=== PATIENT | male | born 1940 | race Caucasian/White ===

== ENCOUNTER 2017-11-27 00:22 | Emergency (ER) | payer MEDICARE, OTHER ==
[~2017-11-27] VITALS: Ht 182.9 cm; Wt 65.8 kg
[2017-11-27] MEDS ORDERED: KETOROLAC 60 MG/2 ML VIAL IM ONE (01:00)
--- NOTE | 2017-11-27 01:03 | ED Hip Pain/Injury ---
General Stated Complaint: LEFT HIP PAIN Source: patient History of Present Illness Date Seen by Provider: Nov 27, 2017 Time Seen by Provider: 00:49 Initial Comments PT ARRIVES VIA POV WITH SON, FROM HOME IN [place] C/O LEFT HIP PAIN FOR A COUPLE OF DAYS--POINTS TO LEFT SI JOINT AREA SITE OF PAIN NO KNOWN INJURY OR UNUSUAL ACTIVITY STATES HE CAN'T SIT OR LAY DOWN DUE TO PAIN NO HISTORY OF SIMILAR HAS HAD CONSTIPATION SINCE YESTERDAY--HAS TAKEN LAXATIVES YESTERDAY AND TODAY-- HAS HAD A FEW SMALL, HARD BM'S NO PROBLEMS URINATING OCCASIONAL SLIGHT NUMBNESS DOWN LEFT LEG TOOK 1 ADVIL AT 1700, NO RELIEF. Other PCP: FT. TASNEEM PELAYO Allergies and Home Medications Allergies Coded Allergies: No Known Drug Allergies (Unverified , 11/27/17) Home Medications Cyclobenzaprine HCl 10 Mg Tablet, 10 MG PO Q8H Prescribed by: MIGUEL LYNN on 11/27/17231 Naproxen 500 Mg Tablet, 500 MG PO BID Prescribed by: MIGUEL LYNN on 11/27/17231 Tramadol HCl 50 Mg Tablet, 50 MG PO Q4H Prescribed by: MIGUEL LYNN on 11/27/17231 Patient Home Medication List Home Medication List Reviewed: Yes Review of Systems Constitutional: no symptoms reported Respiratory: no symptoms reported Cardiovascular: no symptoms reported Gastrointestinal: No abdominal pain; constipation; No nausea, No vomiting Genitourinary: no symptoms reported Musculoskeletal: see HPI Skin: no symptoms reported; No rash Psychiatric/Neurological: See HPI, Numbness, Paresthesia Past Lzxbifj-Bmopdr-Crncbg Hx Patient Social History Alcohol Use: Regular Use (DRINKS WHISKEY DAILY) Recreational Drug Use: No Smoking Status: Current Everyday Smoker (1 PPD) Type Used: Cigarettes (1 PPD) Recent Foreign Travel: No Contact w/Someone Who Travel: No Past Medical History Surgeries: Yes (EGD/ESOPHAGEAL DILATION) Respiratory: No Cardiac: No Neurological: No Genitourinary: No Gastrointestinal: Yes (ESOPHAGEAL STRICTURE) Gastroesophageal Reflux Musculoskeletal: No Endocrine: No HEENT: No Cancer: No Psychosocial: No Integumentary: No Blood Disorders: No Physical Exam Vital Signs Capillary Refill : Height, Weight, BMI Height: '" Weight: lbs. oz. kg; BMI Method: General Appearance: No Apparent Distress, Thin, Other (+ ODOR OF CIGARETTES AND ALCOHOL) HEENT: PERRL/EOMI Neck: Full Range of Motion, Normal Inspection, Non Tender, Supple Cardiovascular: Regular Rate, Rhythm, No Edema, No JVD, No Murmur, Normal Peripheral Pulses Respiratory: Normal Breath Sounds, No Accessory Muscle Use, No Respiratory Distress Gastrointestinal: Normal Bowel Sounds, No Organomegaly, Non Tender, Soft Back: No CVA Tenderness, No Vertebral Tenderness, Other (TENDERNESS DIRECTLY OVER LEFT SI JOINT--PALPATION REPRODUCES PAIN, DTR'S INTACT. NEGATIVE STRAIGHT LEG RAISING. ) Extremity: Normal Capillary Refill, Normal Inspection, Normal Range of Motion, Non Tender, No Calf Tenderness, No Pedal Edema Neurologic/Psychiatric: Alert, Oriented x3, No Motor/Sensory Deficits, Normal Mood/Affect, wearing apparel folder II-XII Norm as Tested Skin: Normal Color, Warm/Dry; No Rash Progress/Results/Core Measures Results/Orders My Orders Orders - MIGUEL LYNN DO Ketorolac Injection (Toradol Injection) (11/27/17 01:00) Ct Lumbar Spine Wo (11/27/17 00:56) Pelvis With Left Hip 2-3 Views (11/27/17 00:56) Rx-Cyclobenzaprine Tablet (Rx-Flexeril T (11/27/17 02:26) Rx-Tramadol Hcl (Rx-Ultram) (11/27/17 02:26) Rx-Naproxen (Rx-Naprosyn) (11/27/17 02:26) Im/Sub-Q Injection Non-Ab Ed (11/27/17 ) Medications Given in ED Vital Signs/I&O Progress Progress Note : Progress Note SYMPTOMS IMPROVED AT DISMISSAL Diagnostic Imaging Comments CT LUMBAR SPINE--NO ACUTE PROCESS, CHRONIC CHANGES WITH SEVERE DEGENERATIVE CHANGES L5/S1 SPONDYLOLISTHESIS L5 OVER S1. 3.7 CM AAA--PER [facility] VIA FAX @ 1795 Reviewed: Reviewed by Me Departure Impression Primary Impression: Low back pain Additional Impressions: Pain of left sacroiliac joint Degenerative disc disease, lumbar Abdominal aortic aneurysm (AAA) 35 to 39 mm in diameter Disposition: 01 HOME, SELF-CARE Condition: Stable Departure-Patient Inst. Referrals: FLORENCIA LOWERY DO (PCP/Family) Primary Care Physician Patient Instructions: Abdominal Aortic Aneurysm, Low Back Pain (DC), Sacroiliac Joint Pain (DC) Add. Discharge Instructions: ALTERNATE ICE AND HEAT TO AREA AT 20 MINUTE INTERVALS NO LIFTING, BENDING OR TWISTING NO ALCOHOL WITH PRESCRIPTION MEDICATIONS DO NOT DRIVE OR OPERATE ANY MACHINERY WHILE TAKING MEDICATIONS FOLLOW UP WITH YOUR DR THIS WEEK FOR FURTHER CARE Scripts Tramadol HCl (Ultram) 50 Mg Tablet 50 MG PO Q4H, #20 TAB Prov: MIGUEL LYNN DO 11/27/17 Naproxen (Naproxen) 500 Mg Tablet 500 MG PO BID, #20 TAB Prov: MIGUEL LYNN DO 11/27/17 Cyclobenzaprine HCl (Cyclobenzaprine HCl) 10 Mg Tablet 10 MG PO Q8H, #15 TAB Prov: MIGUEL LYNN DO 11/27/17 MIGUEL LYNN DO Nov 27, 2017 01:03
[2017-11-27] MEDS ORDERED: RX-CYCLOBENZAPRINE 10 MG (FLEXERIL) TAB PPK#3 PO STA (02:26)
[2017-11-27] MEDS ORDERED: RX-TRAMADOL 50 MG (ULTRAM) TAB PPK#4 PO STA (02:26)
[2017-11-27] MEDS ORDERED: RX-NAPROXEN (NAPROSYN) 250 MG TAB PPK#4 PO STA (02:26)
[2017-11-27] MEDS ORDERED: NAPR-915 PO (02:32)
[2017-11-27] MEDS ORDERED: CYCL10TA9 PO (02:32)
[2017-11-27] MEDS ORDERED: TRAM-42 PO (02:32)
[2017-11-27 02:42] VITALS: BP 150/99
--- NOTE | 2017-11-27 07:47 | Diagnostic Imaging Report ---
INDICATION: Left hip pain TECHNIQUE: AP pelvis along with 2 views left hip 2:06 AM CORRELATION STUDY: None FINDINGS: Pelvis is intact. No acute fracture. Pectineal lines and obturator rings maintained. SI joints with mild sclerosis. Right hip with mild narrowing. Imaging of the left hip demonstrates mild joint space narrowing. Femoral head acetabular relationship otherwise maintained. Bony trabecular pattern intact. Surgical change of a prior hernia repair, left inguinal region as well as vascular calcification. IMPRESSION: Negative examination of the pelvis. Mild bilateral hip joint narrowing. Dictated by: Dictated on workstation # [id number]
--- NOTE | 2017-11-27 08:06 | Diagnostic Imaging Report ---
PROCEDURE: CT lumbar spine without contrast. TECHNIQUE: Multiple contiguous axial images were obtained through the lumbar spine without the use of intravenous contrast. Sagittal and coronal reformations were then performed. INDICATION: Left hip pain. FINDINGS: Grade 2 spondylolisthesis of L5 on S1. Alignment is otherwise anatomic. Lumbar vertebral body heights are overall maintained and demonstrate no acute-appearing compression deformity. There is however extensive areas of Schmorl's node deformities reactive endplate changes, particularly at the L5-S1 level. 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 Marked disc space narrowing L5-S1 levels with essentially absence of joint space. There is severe bilateral neural foraminal stenosis. Additional areas of degenerative change with vacuum phenomena L2-L3, L3-L4 levels. Additional disc bulges L2-L3, L3-L4 and L4-5 levels. No appreciable high-degree spinal canal stenosis. Asymmetric areas of hypertrophic facet arthropathy. Normal aortic aneurysm measuring up to 3.8 cm in size. Incidental note is made of a colonic diverticulosis. IMPRESSION: 1. Negative for acute bony abnormality at the lumbar spine. 2. 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 Associated severe disc degeneration is noted. This results in bilateral severe foraminal stenosis. 3. Additional multifocal areas of degenerative change are present. Hypertrophic facet arthropathy. 4. Abdominal aortic aneurysm measuring just under 4 cm maximum size. Colonic diverticulosis. A preliminary report was provided by [facility]. Dictated by: Dictated on workstation # [id number]
== END 2017-11-27 02:43 | disposition home or self-care (01) ==
LOC: ER 00:25
DX: M51.36 Other intervertebral disc degeneration, lumbar region (principal); M53.3 Sacrococcygeal disorders, not elsewhere classified; I71.4 Abdominal aortic aneurysm, without rupture; M25.552 Pain in left hip; K21.9 Gastro-esophageal reflux disease without esophagitis; F10.10 Alcohol abuse, uncomplicated; F17.210 Nicotine dependence, cigarettes, uncomplicated; Z87.19 Personal history of other diseases of the digestive system
CPT/HCPCS: 72131; 96372

== ENCOUNTER 2019-04-27 20:10 | Inpatient (IN) | payer MEDICARE ==
[~2019-04-27] VITALS: Ht 182 cm; Wt 70.7 kg
[~2019-04-27 20:10] MED LIST: CYCL10TA9 PO; NAPR-915 PO; TRAM-42 PO
--- NOTE | 2019-04-27 20:16 | ED Chest Pain ---
General Stated Complaint: CP Source: patient, EMS Exam Limitations: no limitations History of Present Illness Date Seen by Provider: Apr 27, 2019 Time Seen by Provider: 20:14 Initial Comments To ER per EMS from home with reports of chest pain left anterior that started 30 minutes ago while he was "taking a shit". The pain lasted for about 20 minutes before subsiding after the administration of one sublingual nitroglycerin and 4 mg of morphine by EMS in route to the hospital. He was also given aspirin full dose in route to the hospital. He does smoke about one pack of cigarettes per day. Upon arrival to ER he is completely asymptomatic. Primary care doctor self, no cardiac history. EMS reports that on their arrival systolic blood pressure was repeatedly 220-240. He states that he has no medical history and takes no medication except naproxen. Timing/Duration: resolved prior to arrival Severity/Quality: moderate Location: central Radiation: no radiation ASA po ELECTRO OPTICS ENGINEER: Yes NTG SL ELECTRO OPTICS ENGINEER: Yes Associated Symptoms: No diaphoresis, No nausea/vomiting; shortness of breath Allergies and Home Medications Allergies Coded Allergies: No Known Drug Allergies (Unverified , 11/27/17) Home Medications Cyclobenzaprine HCl 10 Mg Tablet, 10 MG PO Q8H Prescribed by: MIGUEL LYNN on 11/27/17231 Naproxen 500 Mg Tablet, 500 MG PO BID Prescribed by: MIGUEL LYNN on 11/27/17231 Tramadol HCl 50 Mg Tablet, 50 MG PO Q4H Prescribed by: MIGUEL LYNN on 11/27/17231 Patient Home Medication List Home Medication List Reviewed: Yes Review of Systems Review of Systems Constitutional: see HPI EENTM: No Symptoms Reported Respiratory: No Symptoms Reported; Denies Cough, Denies Orthopnea, Denies Shortness of Air Cardiovascular: See HPI, Chest Pain Gastrointestinal: No Symptoms Reported Genitourinary: No Symptoms Reported Musculoskeletal: no symptoms reported Skin: no symptoms reported Psychiatric/Neurological: No Symptoms Reported Endocrine: No Symptoms Reported Hematologic/Lymphatic: No Symptoms Reported Past Whlncay-Iutren-Eoqexh Hx Patient Social History Type Used: Cigarettes Recent Foreign Travel: No Contact w/Someone Who Travel: No Recent Hopitalizations: No Seasonal Allergies Seasonal Allergies: No Past Medical History Surgeries: Yes (EGD/ESOPHAGEAL DILATION) Appendectomy Respiratory: No Cardiac: No Neurological: No Genitourinary: No Gastrointestinal: Yes (ESOPHAGEAL STRICTURE) Gastroesophageal Reflux Musculoskeletal: No Endocrine: No HEENT: No Cancer: No Psychosocial: No Integumentary: No Blood Disorders: No Physical Exam Vital Signs Vital Signs - First Documented 04/27/19 20:10 Temp 36.7 Pulse 75 Resp 18 B/P (MAP) 195/112 (139) Pulse Ox 95 O2 Delivery Room Air O2 Flow Rate 2.0 Capillary Refill : Height, Weight, BMI Height: 6'0" Weight: 145lbs. oz. 65.210131qx; BMI Method:Stated General Appearance: No Apparent Distress, WD/WN, Other (alert and oriented, GCS 15) Neck: Full Range of Motion, Normal Inspection Respiratory: Normal Breath Sounds, No Accessory Muscle Use, No Respiratory Distress Cardiovascular: Regular Rate, Rhythm, Normal Peripheral Pulses Gastrointestinal: Normal Bowel Sounds, Non Tender, Soft Extremity: Normal Capillary Refill, Normal Inspection Neurologic/Psychiatric: Alert, Oriented x3 Skin: Normal Color, Warm/Dry Progress/Results/Core Measures Results/Orders Lab Results Laboratory Tests Test 04/27/19 20:16 Range/Units White Blood Count 8.2 4.3-11.0 10^3/uL Red Blood Count 6.25 H 4.35-5.85 10^6/uL Hemoglobin 19.5 H 13.3-17.7 G/DL Hematocrit 58 H 40-54 % Mean Corpuscular Volume 92 80-99 FL Mean Corpuscular Hemoglobin 31 25-34 PG Mean Corpuscular Hemoglobin Concent 34 32-36 G/DL Red Cell Distribution Width 14.8 H 10.0-14.5 % Platelet Count 234 130-400 10^3/uL Mean Platelet Volume 10.5 H 7.4-10.4 FL Neutrophils (%) (Auto) 50 42-75 % Lymphocytes (%) (Auto) 31 12-44 % Monocytes (%) (Auto) 13 H 0-12 % Eosinophils (%) (Auto) 6 0-10 % Basophils (%) (Auto) 1 0-10 % Neutrophils # (Auto) 4.1 1.8-7.8 X 10^3 Lymphocytes # (Auto) 2.5 1.0-4.0 X 10^3 Monocytes # (Auto) 1.0 0.0-1.0 X 10^3 Eosinophils # (Auto) 0.5 H 0.0-0.3 10^3/uL Basophils # (Auto) 0.1 0.0-0.1 10^3/uL Prothrombin Time 12.9 12.2-14.7 SEC INR Comment 0.9 0.8-1.4 Activated Partial Thromboplast Time 31 24-35 SEC D-Dimer 1.52 H 0.00-0.49 UG/ML Sodium Level 139 135-145 MMOL/L Potassium Level 4.2 3.6-5.0 MMOL/L Chloride Level 105 98-107 MMOL/L Carbon Dioxide Level 25 21-32 MMOL/L Anion Gap 9 5-14 MMOL/L Blood Urea Nitrogen 16 7-18 MG/DL Creatinine 1.03 0.60-1.30 MG/DL Estimat Glomerular Filtration Rate > 60 BUN/Creatinine Ratio 16 Glucose Level 98 70-105 MG/DL Calcium Level 9.2 8.5-10.1 MG/DL Corrected Calcium 9.4 8.5-10.1 MG/DL Magnesium Level 1.7 1.6-2.4 MG/DL Total Bilirubin 0.9 0.1-1.0 MG/DL Aspartate Amino Transf (AST/SGOT) 18 5-34 U/L Alanine Aminotransferase (ALT/SGPT) 15 0-55 U/L Alkaline Phosphatase 52 40-136 U/L Myoglobin 42.1 10.0-92.0 NG/ML Troponin I < 0.028 <0.028 NG/ML B-Type Natriuretic Peptide 286.1 H <100.0 PG/ML Total Protein 6.4 6.4-8.2 GM/DL Albumin 3.7 3.2-4.5 GM/DL Serum Alcohol < 10 <10 MG/DL My Orders Orders - CELESTINO KIMBLE RESIDENTIAL PROGRAM DIRECTOR Cbc With Automated Diff (04/27/19 20:13) Magnesium (04/27/19 20:13) Chest 1 View, Ap/Pa Only (04/27/19 20:13) Ekg Tracing (04/27/19 20:13) Comprehensive Metabolic Panel (04/27/19 20:13) Myoglobin Serum (04/27/19 20:13) Protime With Inr (04/27/19 20:13) Partial Thromboplastin Time (04/27/19 20:13) O2 (04/27/19 20:13) Monitor-Rhythm Ecg Trace Only (04/27/19 20:13) Lipid Panel (04/28/19 06:00) Ed Iv/Invasive Line Start (04/27/19 20:13) BNP (04/27/19 20:13) Fibrin Degradation Products (04/27/19 20:13) Troponin I (04/27/19 20:13) Metoprolol Tartrate Injection (Lopressor (04/27/19 20:45) Alcohol (04/27/19 20:35) Ct Angio Chest W (04/27/19 20:47) Clonidine Tablet (Catapres Tablet) (04/27/19 21:00) Iohexol Injection (Omnipaque 350 Mg/Ml 1 (04/27/19 21:15) Ns (Ivpb) (Sodium Chloride 0.9% Ivpb Bag (04/27/19 21:15) Hydralazine Injection (Apresoline Inject (04/27/19 22:15) Medications Given in ED Current Medications Medications Dose Ordered Sig/Gifty Route Start Time Stop Time Status Last Admin Dose Admin Clonidine HCl 0.1 mg ONCE ONCE PO 04/27/19 21:00 04/27/19 21:01 DC 04/27/19 21:05 0.1 MG Iohexol 100 ml ONCE ONCE IV 04/27/19 21:15 04/27/19 21:16 DC 04/27/19 21:21 100 ML Metoprolol Tartrate 5 mg ONCE ONCE IV 04/27/19 20:45 04/27/19 20:46 DC 04/27/19 20:39 5 MG Sodium Chloride 80 ml ONCE ONCE IV 04/27/19 21:15 04/27/19 21:16 DC 04/27/19 21:21 80 ML Vital Signs/I&O 04/27/19 04/27/19 20:10 20:10 Temp 36.7 Pulse 75 Resp 18 B/P (MAP) 195/112 (139) Pulse Ox 95 O2 Delivery Room Air Nasal Cannula O2 Flow Rate 2.0 Diagnostic Imaging Diagonstic Imaging: Xray Plain Films/CT/US/NM/MRI: chest Comments NAME: SOULEYMANE DAUGHERTY MED REC#: [id number] PT STATUS: REG ER : 1940 PHYSICIAN: CELESTINO KIMBLE APRN ADMIT DATE: 04/27/19/ER Draft Date of Exam:04/27/19 CHEST 1 VIEW, AP/PA ONLY INDICATION: Dyspnea Portable AP view of the chest is obtained. No previous study is available at this time for comparison. Heart size and pulmonary vascularity are at the upper limits of normal. There are also prominent interstitial markings throughout the lungs bilaterally. No pneumothorax or significant pleural fluid is identified. IMPRESSION: Findings are suggestive of congestive heart failure of indeterminate chronicity. If older studies are available, comparison would be useful. Otherwise, follow-up PA and lateral views of the chest would be of value. Dictated on workstation # [id number] Dict: 04/27/192025 Trans: 04/27/192028 [facility] [id number] Interpreted by: ERICA VILLAR MD Electronically signed by: Departure Communication (Admissions) Time/Spoke to Admitting Phy: 22:[address] Manjarrez, we will admit to ICU for malignant hypertension consult Dr. Gore. Spoke with Dr. Carbone, recommends Toprol-XL 100 mg by mouth now, Norvasc 10 mg by mouth now, hydralazine 50 mg by mouth every 6 hours for systolic blood pressure greater than 180. 2101-remains pain-free at this time laying flat supine in bed without shortness of breath or chest pain. He is a bit tearful and there is a multitude of family members here. 0-1 pressure still elevated at 186/110. Remains alert and oriented, heart rate 64 sinus. Remains symptom-free. Impression Primary Impression: Chest pain Qualified Codes: R07.9 - Chest pain, unspecified Additional Impression: Malignant hypertension Disposition: ADMITTED INPATIENT Condition: Stable Admissions Decision to Admit Reason: Admit from ER (General) Decision to Admit/Date: Apr 27, 2019 Time/Decision to Admit Time: 22:01 Departure-Patient Inst. Referrals: SIRISHA COLLINS MD (PCP/Family) Primary Care Physician CELESTINO KIMBLE APRN Apr 27, 2019 20:16
[2019-04-27 20:25] LABS: BASOPHILS # (AUTO) 0.1 10^3/uL (0.0-0.1); BASOPHILS % (AUTO) 1 % (0-10); EOSINOPHILS # (AUTO) 0.5 10^3/uL (0.0-0.3); EOSINOPHILS % (AUTO) 6 % (0-10); HEMATOCRIT 58 % (40-54); HEMOGLOBIN 19.5 G/DL (13.3-17.7); LYMPHOCYTES # (AUTO) 2.5 X 10^3 (1.0-4.0); LYMPHOCYTES % (AUTO) 31 % (12-44); MEAN CORPUSCULAR HEMOGLOBIN 31 PG (25-34); MEAN CORPUSCULAR HGB CONC 34 G/DL (32-36); MEAN CORPUSCULAR VOLUME 92 FL (80-99); MEAN PLATELET VOLUME 10.5 FL (7.4-10.4); MONOCYTES % (AUTO) 13 % (0-12); NEUTROPHILS # (AUTO) 4.1 X 10^3 (1.8-7.8); NEUTROPHILS % (AUTO) 50 % (42-75); PLATELET COUNT 234 10^3/uL (130-400); RED CELL DISTRIBUTION WIDTH 14.8 % (10.0-14.5); WHITE BLOOD COUNT 8.2 10^3/uL (4.3-11.0)
--- NOTE | 2019-04-27 20:30 | Diagnostic Imaging Report ---
INDICATION: Dyspnea Portable AP view of the chest is obtained. No previous study is available at this time for comparison. Heart size and pulmonary vascularity are at the upper limits of normal. There are also prominent interstitial markings throughout the lungs bilaterally. No pneumothorax or significant pleural fluid is identified. IMPRESSION: Findings are suggestive of congestive heart failure of indeterminate chronicity. If older studies are available, comparison would be useful. Otherwise, follow-up PA and lateral views of the chest would be of value. Dictated by: Dictated on workstation # [id number]
[2019-04-27 20:37] LABS: INR 0.9 (0.8-1.4); PROTHROMBIN TIME PATIENT 12.9 SEC (12.2-14.7)
[2019-04-27] MEDS ORDERED: meTOprolol 5 MG/5 ML (LOPRESSOR) VIAL IV ONE (20:45)
[2019-04-27 20:46] LABS: ALANINE AMINOTRANSFERASE 15 U/L (0-55); ALBUMIN 3.7 GM/DL (3.2-4.5); ALKALINE PHOSPHATASE 52 U/L (40-136); BILIRUBIN,TOTAL 0.9 MG/DL (0.1-1.0); BUN/CREATININE RATIO 16; CALCIUM 9.2 MG/DL (8.5-10.1); CARBON DIOXIDE 25 MMOL/L (21-32); CHLORIDE 105 MMOL/L (98-107); CREATININE SERUM 1.03 MG/DL (0.60-1.30); GFR ESTIMATED > 60; GLUCOSE 98 MG/DL (70-105); MAGNESIUM 1.7 MG/DL (1.6-2.4); POTASSIUM 4.2 MMOL/L (3.6-5.0); SODIUM 139 MMOL/L (135-145); TOTAL PROTEIN 6.4 GM/DL (6.4-8.2)
[2019-04-27] MEDS ORDERED: cloNIDine 0.1 MG (CATAPRES) TAB PO ONE (21:00)
[2019-04-27] MEDS ORDERED: NS 100 ML (IVPB) BAG IV ONE (21:15)
[2019-04-27] MEDS ORDERED: IOHEXOL 350 MG/ML 100 ML (OMNIPAQUE 350) VIAL IV ONE (21:15)
--- NOTE | 2019-04-27 21:39 | Diagnostic Imaging Report ---
PROCEDURE: CT angiography of the chest with contrast. TECHNIQUE: Multiple contiguous axial images were obtained through the chest after uneventful bolus administration of intravenous contrast. 3D reconstructed CTA MIP acquisitions were also performed. Auto Exposure Controls were utilized during the CT exam to meet ALARA standards for radiation dose reduction. INDICATION: Chest pain. FINDINGS: There is good opacification of pulmonary arteries without intraluminal filling defect identified. There is mild aortic athetotic calcification without evidence of dissection or thoracic aortic aneurysm. Upper abdominal aorta demonstrates moderate atherosclerotic plaque. There is bilateral renal calcification without evidence of obstruction. There is diffuse background centrilobular emphysema with conglomerate regions of irregular density in the apices of both lungs, likely due to scarring. Prominent interstitial markings are seen elsewhere throughout the lungs; however, no consolidation or mass is identified. There is no significant pleural or pericardial fluid. Coronary artery calcifications are noted. IMPRESSION: No CTA evidence of pulmonary embolism. There is evidence of background COPD with mildly prominent interstitial markings diffusely which could be due to superimposed edema or pneumonitis. No consolidation is seen to indicate pneumonia. Chronic infiltrate or scarring is seen within the lung apices bilaterally. These could be further evaluated with older study if possible. Otherwise, consideration should be given to short-term CT follow-up in 4-6 months. Dictated by: Dictated on workstation # [id number]
[2019-04-27] MEDS ORDERED: hydrALAZINE (APESOLINE) 20 MG/ML VIAL IV ONE (22:15)
[2019-04-27] MEDS ORDERED: LORazepam INJ 2 MG/ML (ATIVAN) VIAL IVP PRN (22:30)
[2019-04-27 23:03] VITALS: BP 185/100
[2019-04-27 23:19] VITALS: BP 200/123
[2019-04-27 23:30] VITALS: BP 217/123
[2019-04-27] MEDS ORDERED: NITROGLYCERIN 0.4 MG SL TABS BTL 25'S SL PRN (23:30)
[2019-04-27] MEDS ORDERED: hydrALAZINE (APRESOLINE) 25 MG TAB PO PRN (23:30)
[2019-04-27] MEDS ORDERED: amLODIPine 10 MG (NORVASC) TAB PO ONE (23:30)
[2019-04-27] MEDS ORDERED: meTOprolol SUCCINATE 100 MG (TOPROL XL) TAB PO ONE (23:30)
[2019-04-27] MEDS ORDERED: morphine INJ 4 MG/ML 1 ML (VIAL/SYRINGE) IV PRN (23:30)
[2019-04-27] MEDS ORDERED: HALOPERIDOL 5 MG/ML (HALDOL) AMP ONE (23:31)
[2019-04-27 23:45] VITALS: BP 176/91
[2019-04-27] MEDS ORDERED: LORazepam INJ 2 MG/ML (ATIVAN) VIAL IVP ONE (23:45)
[2019-04-27] MEDS ORDERED: LORazepam INJ 2 MG/ML (ATIVAN) VIAL IV ONE (23:45)
[2019-04-27] MEDS ORDERED: HALOPERIDOL 5 MG/ML (HALDOL) AMP IM/IV ONE (23:45)
[2019-04-27] MEDS ORDERED: HALOPERIDOL 5 MG/ML (HALDOL) AMP IV ONE (23:45)
[2019-04-28] VITALS (26 sets, daily range): BP systolic 82–172; BP diastolic 45–115
[2019-04-28] MEDS ORDERED: hydrALAZINE (APESOLINE) 20 MG/ML VIAL ONE (00:56)
[2019-04-28] MEDS ORDERED: DexMEDEtomidine 250 ML DRIP 250 ML IV ONE (00:56)
[2019-04-28] MEDS: DexMEDEtomidine 200 MCG/NS 50 ML IV SCH ×6 (01:00→23:58)
[2019-04-28 01:15] LABS: BILIRUBIN,URINE NEGATIVE (NEGATIVE); CLARITY,URINE CLEAR; COLOR,URINE YELLOW; GLUCOSE, URINE (UA) NEGATIVE (NEGATIVE); KETONES,URINE NEGATIVE (NEGATIVE); LEUKOCYTE ESTERASE ,URINE NEGATIVE (NEGATIVE); NITRITE,URINE NEGATIVE (NEGATIVE); PROTEIN,URINE NEGATIVE (NEGATIVE)
[2019-04-28 01:27] LABS: BACTERIA,URINE TRACE /HPF; SQUAMOUS EPITHELIAL CELL,UR RARE /HPF
[2019-04-28] MEDS ORDERED: hydrALAZINE (APESOLINE) 20 MG/ML VIAL IV PRN (03:30)
[2019-04-28] MEDS ORDERED: LORazepam INJ 2 MG/ML (ATIVAN) VIAL IV ONE (03:30)
[2019-04-28] MEDS ORDERED: LORazepam 1 MG (ATIVAN) TAB PO PRN (03:30)
[2019-04-28] MEDS ORDERED: LORazepam INJ 2 MG/ML (ATIVAN) VIAL IV PRN (03:30)
[2019-04-28] MEDS ORDERED: THIAMINE 100 MG/ML 2 ML (VITAMIN B-1) VIAL IV ONE (03:30)
[2019-04-28 03:52] LABS: BASOPHILS % (AUTO) 0 % (0-10); EOSINOPHILS # (AUTO) 0.3 10^3/uL (0.0-0.3); EOSINOPHILS % (AUTO) 2 % (0-10); HEMATOCRIT 58 % (40-54); HEMOGLOBIN 19.8 G/DL (13.3-17.7); LYMPHOCYTES # (AUTO) 1.7 X 10^3 (1.0-4.0); LYMPHOCYTES % (AUTO) 14 % (12-44); MEAN CORPUSCULAR HEMOGLOBIN 31 PG (25-34); MEAN CORPUSCULAR HGB CONC 34 G/DL (32-36); MEAN CORPUSCULAR VOLUME 91 FL (80-99); MEAN PLATELET VOLUME 10.7 FL (7.4-10.4); MONOCYTES # (AUTO) 1.2 X 10^3 (0.0-1.0); MONOCYTES % (AUTO) 10 % (0-12); NEUTROPHILS # (AUTO) 9.3 X 10^3 (1.8-7.8); NEUTROPHILS % (AUTO) 74 % (42-75); PLATELET COUNT 238 10^3/uL (130-400); RED CELL DISTRIBUTION WIDTH 14.8 % (10.0-14.5); WHITE BLOOD COUNT 12.5 10^3/uL (4.3-11.0)
[2019-04-28 04:16] LABS: ALANINE AMINOTRANSFERASE 15 U/L (0-55); ALBUMIN 3.5 GM/DL (3.2-4.5); ALKALINE PHOSPHATASE 51 U/L (40-136); BILIRUBIN,TOTAL 1.2 MG/DL (0.1-1.0); BUN/CREATININE RATIO 17; CALCIUM 9.1 MG/DL (8.5-10.1); CARBON DIOXIDE 19 MMOL/L (21-32); CHLORIDE 107 MMOL/L (98-107); CHOLESTEROL 172 MG/DL (< 200); CREATININE SERUM 0.94 MG/DL (0.60-1.30); GFR ESTIMATED > 60; GLUCOSE 130 MG/DL (70-105); HDL CHOLESTEROL 49 MG/DL (40-60); MAGNESIUM 1.5 MG/DL (1.6-2.4); PHOSPHORUS 2.7 MG/DL (2.3-4.7); POTASSIUM 3.8 MMOL/L (3.6-5.0); SODIUM 137 MMOL/L (135-145); TOTAL PROTEIN 6.2 GM/DL (6.4-8.2); TRIGLYCERIDES 79 MG/DL (<150); VLDL CHOLESTEROL 16 MG/DL (5-40)
--- NOTE | 2019-04-28 04:18 | Pulmonary Consultation ---
History of Present Illness History of Present Illness Date Seen by Provider: Apr 28, 2019 Time Seen by Provider: 04:13 Date of Admission Allergies and Home Medications Allergies Coded Allergies: No Known Drug Allergies (Unverified , 11/27/17) Home Medications Cyclobenzaprine HCl 10 Mg Tablet, 10 MG PO Q8H Prescribed by: MIGUEL LYNN on 11/27/17231 Naproxen 500 Mg Tablet, 500 MG PO BID Prescribed by: MIGUEL LYNN on 11/27/17231 Tramadol HCl 50 Mg Tablet, 50 MG PO Q4H Prescribed by: MIGUEL LYNN on 11/27/17231 Past Ditubzu-Tkkbgd-Rfftay Hx Patient Social History Alcohol Use: Regular Use Alcohol Beverage of Choice: Beer Recreational Drug Use: No Smoking Status: Current Everyday Smoker Type Used: Cigarettes 2nd Hand Smoke Exposure: Yes Recent Foreign Travel: No Contact w/Someone Who Travel: No Recent Infectious Disease Expo: No Recent Hopitalizations: No Physical Abuse: No Sexual Abuse: No Mistreated: No Fear: No Seasonal Allergies Seasonal Allergies: No Past Medical History Surgeries: Yes (EGD/ESOPHAGEAL DILATION) Appendectomy Respiratory: No Cardiac: No Neurological: No Genitourinary: No Gastrointestinal: Yes (ESOPHAGEAL STRICTURE) Gastroesophageal Reflux Musculoskeletal: No Endocrine: No HEENT: No Cancer: No Psychosocial: No Integumentary: No Blood Disorders: No Review of Systems Time Seen by Provider: 05:17 Sepsis Event Evaluation Height, Weight, BMI Height: 6'0" Weight: 145lbs. oz. 65.070763wb; 20.00 BMI Method:Stated Exam Exam Vital Signs Date Time Temp Pulse Resp B/P (MAP) Pulse Ox O2 Delivery O2 Flow Rate FiO2 04/28/19 04:00 59 18 88/48 (61) 94 Room Air 04/28/19 03:30 59 18 83/54 (64) 95 Room Air 04/28/19 03:28 60 8 122/63 (82) 95 Room Air 04/28/19 03:00 73 19 106/71 (83) 94 Room Air 04/28/19 02:00 75 24 144/74 (97) 94 Room Air 04/28/19 01:00 83 04/28/19 01:00 67 21 172/84 (113) 93 Room Air 04/28/19 00:00 80 19 171/97 (121) 94 Room Air 04/28/19 00:00 Room Air 04/27/19 23:45 77 19 176/91 (119) 95 Room Air 04/27/19 23:30 86 18 217/123 (154) 96 Room Air 04/27/19 23:19 98 38 200/123 (148) 98 Room Air 04/27/19 23:08 75 04/27/19 23:03 36.5 99 25 185/100 (128) 96 Room Air 04/27/19 22:43 36.4 63 16 160/107 95 Room Air 04/27/19 20:10 Nasal Cannula 2.0 04/27/19 20:10 36.7 75 18 195/112 (139) 95 Room Air I & O 04/28/19 06:59 Intake Total 200 ml Balance 200 ml Height & Weight Height: 6'0" Weight: 145lbs. oz. 65.893081ym; 20.00 BMI Method:Stated General Appearance: WD/WN, Moderate Distress, Other (alert and oriented, GCS 15) Neck: Full Range of Motion, Normal Inspection Respiratory: Normal Breath Sounds, No Accessory Muscle Use, No Respiratory Distress Cardiovascular: Regular Rate, Rhythm, Normal Peripheral Pulses Capillary Refill: Less Than 3 Seconds Extremity: Normal Capillary Refill, Normal Inspection Neurologic/Psychiatric: Alert, Oriented x3 Skin: Normal Color, Warm/Dry Results Lab Laboratory Tests 04/27/19 20:16 04/28/19 03:25 Assessment/Plan Assessment/Plan Leukocytosis r/o Sepsis -Check CP -Cardiology is consulted Hx of ETOH dependance -MAI -Pt is having long period of apnea secondary to sedation -Hold Precedex - -Check ABG -Will place pt on C02 monitor Agitation -Precedex gtt -- hold Impression Primary Impression: Chest pain Qualified Codes: R07.9 - Chest pain, unspecified Additional Impression: Malignant hypertension Disposition: 09 ADMITTED INPATIENT Condition: Stable MAITE POWERS DO Apr 28, 2019 04:18
[2019-04-28] MEDS ORDERED: WATER (STERILE) FOR INJECTION 10 ML ONE (04:44)
[2019-04-28] MEDS ORDERED: cefTRIAXone 1,000 MG IV (ROCEPHIN) VIAL ONE (04:44)
[2019-04-28] MEDS: D5 LR IV SOLUTION 1,000 ML IV SCH ×3 (04:47→17:18)
[2019-04-28] MEDS: cefTRIAXone FOR IV USE 1,000 MG in WATER (STERILE) FOR INJECTION 10 ML IV SCH (04:52)
[2019-04-28 05:30] LABS: ABG BASE EXCESS 0.7 MMOL/L (-2.5-2.5); ABG OXYGEN SATURATION 96 % (94-100); ABG PCO2 34 MMHG (35-45); ABG PH 7.47 (7.37-7.43); ABG PO2 74 MMHG (79-93); ABG TCO2 25.3 MMOL/L (21.0-31.0)
[2019-04-28 05:32] LABS: ALLENS TEST POSITIVE; INSPIRED O2 ROOM AIR; PATIENT TEMP 36.2; VENTILATOR NO
[2019-04-28] MEDS: KCL 20 MEQ TAB (K-DUR) PO SCH (06:40)
[2019-04-28] MEDS: MAGNESIUM 1 GM/100 ML IVPB 100 ML IV SCH ×3 (06:40→07:41)
[2019-04-28] MEDS: POTASSIUM CL 10MEQ/50ML IVPB 50 ML IV SCH (06:40)
[2019-04-28] MEDS: ASPIRIN 81 MG CHEW (CHILDREN'S ASA) PO SCH (07:39)
--- NOTE | 2019-04-28 08:12 | NUR ---
Timeline note below: 04/27/19 @ 2317 This RN called patient's Sabiha. Pt was becoming increasingly agitated stating "Get me out of here", "Call my Sabiha". Pt also attempting to pull at IV line and best catheter. Bed alarm is on, call light within reach. 04/27/19 @ 7788 This RN notified EICU of patient's increased agitation. Pt still pulling at tubes and lines as well as attempting to crawl out of bed. New orders received at this time. 04/28/19 @ 0050 this RN called EICU to state that patient is still anxious, restless and agitated. Pt also still hypertensive. New orders received at this time, see order hx. 04/28/19 @ 0130 Patient's daughter Radha is now at bedside. 04/28/19 @ 0300 this RN called EICU to report that patient's daughter Radha, reports that patient drinks liquor daily and also smokes daily. Radha states that pt "quit smoking last , 04/24/19". New order received for CIWA protocol, see order hx. 04/28/19 @ 0500 Dr. Jaquez assessing patient at beside.
--- NOTE | 2019-04-28 08:43 | Consultation-Cardiology ---
HPI-Cardiology Cardiology Consultation: Date of Consultation 04/28/19 Time Seen by a Provider: 08:25 Date of Admission 04-27-2019 Attending Physician Shelly Manjarrez DO Admitting Physician Roger King MD Consulting Physician Joleen Diaz MD HPI: Chief Complaint: Chest pain Mr. Daugherty is a 79 year old male admitted to ICU 8 from the ED. He is currently moving non-purposefully in bed; reaching out. He is moaning. Not following commands. Daughter is at the bedside. Information has been obtained from a review of the chart and discussion with nurse. Per daughter he fell at home a few days ago and was very weak. She reports he crawled to the couch in the living room. She reports he lives at home with his , who is on home dialysis. She reports he called her last night and told her he was having chest pain and thought he was having a heart attack. They daughter is tearful at the bedside. She reports EMS was called. She states he has some confusion at home, but his current condition is new. She states he does drink whiskey on a daily basis, but she is unsure of how much. She reports he does smoke, but is unsure of how much. She reports prior to this event he has not reported any CP, dyspnea or syncope. She reports he has chronic back and joint pain and uses 2 canes to ambulate. Review of Systems-Cardiology Review of Systems Other comments Unable to obtain ROS d/t confusion WHQ-Indzvc-Wbkxbm Hx Patient Social History Alcohol Use: Regular Use Recreational Drug Use: No Smoking Status: Current Everyday Smoker Type Used: Cigarettes 2nd Hand Smoke Exposure: Yes Recent Foreign Travel: No Recent Infectious Disease Expo: No Hospitalization with Isolation: Denies Past Medical History PMH As described under Assessment. Family Medical History Family Medical History: Unable to obtain any family h/o d/t AMS Allergies and Home Medications Allergies Coded Allergies: No Known Drug Allergies (Unverified , 11/27/17) Home Medications Cyclobenzaprine HCl 10 Mg Tablet, 10 MG PO Q8H Prescribed by: MIGUEL LYNN on 11/27/17231 Naproxen 500 Mg Tablet, 500 MG PO BID Prescribed by: MIGUEL LYNN on 11/27/17231 Tramadol HCl 50 Mg Tablet, 50 MG PO Q4H Prescribed by: MIGUEL LYNN on 9/11/18 0232 Physical Exam-Cardiology Physical Exam Vital Signs/I&O 04/27/19 04/27/19 04/27/19 04/27/19 22:43 23:03 23:03 23:08 Temp 36.4 36.5 Pulse 63 99 75 Resp 16 25 B/P (MAP) 160/107 185/100 (128) Pulse Ox 95 96 O2 Delivery Room Air Room Air Room Air 04/27/19 04/27/19 04/27/19 04/28/19 23:19 23:30 23:45 00:00 Pulse 98 86 77 Resp 38 18 19 B/P (MAP) 200/123 (148) 217/123 (154) 176/91 (119) Pulse Ox 98 96 95 O2 Delivery Room Air Room Air Room Air Room Air 04/28/19 04/28/19 04/28/19 04/28/19 00:00 01:00 01:00 02:00 Pulse 80 67 83 75 Resp 19 21 24 B/P (MAP) 171/97 (121) 172/84 (113) 144/74 (97) Pulse Ox 94 93 94 O2 Delivery Room Air Room Air Room Air 04/28/19 04/28/19 04/28/19 04/28/19 03:00 03:28 03:30 04:00 Pulse 73 60 59 Resp 19 8 18 B/P (MAP) 106/71 (83) 122/63 (82) 83/54 (64) Pulse Ox 94 95 95 O2 Delivery Room Air Room Air Room Air Room Air 04/28/19 04/28/19 04/28/19 04/28/19 04:00 04:41 05:00 05:43 Temp 36.1 Pulse 59 50 59 59 Resp 18 24 34 B/P (MAP) 88/48 (61) 82/53 (63) Pulse Ox 94 92 95 O2 Delivery Room Air Room Air O2 Flow Rate 30.00 2.00 04/28/19 04/28/19 04/28/19 04/28/19 06:15 07:30 07:40 08:00 Temp 35.9 35.9 Pulse 73 Resp 27 B/P (MAP) 152/108 (123) Pulse Ox 89 O2 Delivery Room Air Room Air 04/28/19 00:00 Intake Total 200 ml Balance 200 ml Capillary Refill : Less Than 3 Seconds Constitutional: well-developed, well-nourished, other (not following commands; non-purposeful movement) Neck: No carotid bruit; carotid pulses are 2 + bilaterally Respiratory: No accessory muscle use, No respiratory distress; chest expansion is symmetric, chest is bilaterally symmetric, other (good air entry with prolonged expiratory phase) Cardiovascular: regular rate-rhythm; No JVD; S1 and S2, systolic murmur Gastrointestinal: audible bowel sounds Extremities: no lower extremity edema bilateral Neurologic/Psychiatric: other (moves all extremities) Skin: No rash on exposed areas, No ulcerations on exposed areas Data Review Labs Laboratory Tests 04/27/19 20:16: White Blood Count 8.2, Red Blood Count 6.25H, Hemoglobin 19.5H, Hematocrit 58H, Mean Corpuscular Volume 92, Mean Corpuscular Hemoglobin 31, Mean Corpuscular Hemoglobin Concent 34, Red Cell Distribution Width 14.8H, Platelet Count 234, Mean Platelet Volume 10.5H, Neutrophils (%) (Auto) 50, Lymphocytes (%) (Auto) 31, Monocytes (%) (Auto) 13H, Eosinophils (%) (Auto) 6, Basophils (%) (Auto) 1, Neutrophils # (Auto) 4.1, Lymphocytes # (Auto) 2.5, Monocytes # (Auto) 1.0, Eosinophils # (Auto) 0.5H, Basophils # (Auto) 0.1, Prothrombin Time 12.9, INR Comment 0.9, Activated Partial Thromboplast Time 31, D-Dimer 1.52H, Sodium Level 139, Potassium Level 4.2, Chloride Level 105, Carbon Dioxide Level 25, Anion Gap 9, Blood Urea Nitrogen 16, Creatinine 1.03, Estimat Glomerular Filtration Rate > 60, BUN/Creatinine Ratio 16, Glucose Level 98, Calcium Level 9.2, Corrected Calcium 9.4, Magnesium Level 1.7, Total Bilirubin 0.9, Aspartate Amino Transf (AST/SGOT) 18, Alanine Aminotransferase (ALT/SGPT) 15, Alkaline Phosphatase 52, Myoglobin 42.1, Troponin I < 0.028, B-Type Natriuretic Peptide 286.1H, Total Protein 6.4, Albumin 3.7, Serum Alcohol < 10 04/28/19 01:10: Urine Color YELLOW, Urine Clarity CLEAR, Urine pH 8.0, Urine Specific [place] 1.015L, Urine Protein NEGATIVE, Urine Glucose (UA) NEGATIVE, Urine Ketones NEGATIVE, Urine Nitrite NEGATIVE, Urine Bilirubin NEGATIVE, Urine Urobilinogen 0.2, Urine Leukocyte Esterase NEGATIVE, Urine RBC (Auto) 1+H, Urine RBC 10-25H, Urine WBC NONE, Urine Squamous Epithelial Cells RARE, Urine Crystals NONE, Urine Bacteria TRACE, Urine Casts NONE, Urine Mucus NEGATIVE, Urine Culture Indicated NO 04/28/19 03:25: White Blood Count 12.5H, Red Blood Count 6.36H, Hemoglobin 19.8H, Hematocrit 58H , Mean Corpuscular Volume 91, Mean Corpuscular Hemoglobin 31, Mean Corpuscular Hemoglobin Concent 34, Red Cell Distribution Width 14.8H, Platelet Count 238, Mean Platelet Volume 10.7H, Neutrophils (%) (Auto) 74, Lymphocytes (%) (Auto) 14, Monocytes (%) (Auto) 10, Eosinophils (%) (Auto) 2, Basophils (%) (Auto) 0, Neutrophils # (Auto) 9.3H, Lymphocytes # (Auto) 1.7, Monocytes # (Auto) 1.2H, Eosinophils # (Auto) 0.3, Basophils # (Auto) 0.0, Sodium Level 137, Potassium Level 3.8, Chloride Level 107, Carbon Dioxide Level 19L, Anion Gap 11, Blood Urea Nitrogen 16, Creatinine 0.94, Estimat Glomerular Filtration Rate > 60, BUN/Creatinine Ratio 17, Glucose Level 130H, Calcium Level 9.1, Corrected Calcium 9.5, Magnesium Level 1.5L, Total Bilirubin 1.2H, Aspartate Amino Transf (AST/SGOT) 19, Alanine Aminotransferase (ALT/SGPT) 15, Alkaline Phosphatase 51, Total Protein 6.2L, Albumin 3.5, Phosphorus Level 2.7, Triglycerides Level 79, Cholesterol Level 172, LDL Cholesterol Direct 119, VLDL Cholesterol 16, HDL Cholesterol 49 04/28/19 04:55: Lactic Acid Level 1.42 04/28/19 05:20: Blood Gas Puncture Site LT RADIAL, Blood Gas Patient Temperature 36.2, Arterial Blood pH 7.47H, Arterial Blood Partial Pressure CO2 34L, Arterial Blood Partial Pressure O2 74L, Arterial Blood HCO3 24, Arterial Blood Total CO2 25.3, Arterial Blood Oxygen Saturation 96, Arterial Blood Base Excess 0.7, Abhilash Test POSITIVE, Blood Gas Ventilator Setting NO, Blood Gas Inspired Oxygen ROOM AIR 04/28/19 05:55: Troponin I < 0.028 Radiology NAME: SOULEYMANE DAUGHERTY [facility] REC#: [id number] PT STATUS: REG ER : 1940 PHYSICIAN: CELESTINO KIMBLE APRN ADMIT DATE: 04/27/19/ER Signed Date of Exam:04/27/19 CHEST 1 VIEW, AP/PA ONLY INDICATION: Dyspnea Portable AP view of the chest is obtained. No previous study is available at this time for comparison. Heart size and pulmonary vascularity are at the upper limits of normal. There are also prominent interstitial markings throughout the lungs bilaterally. No pneumothorax or significant pleural fluid is identified. IMPRESSION: Findings are suggestive of congestive heart failure of indeterminate chronicity. If older studies are available, comparison would be useful. Otherwise, follow-up PA and lateral views of the chest would be of value. Dictated by: Dictated on workstation # [id number] Dict: 04/27/192025 Trans: 04/27/192201 [id number] Interpreted by: ERICA VILLAR MD Electronically signed by: ERICA VILLAR MD 04/27/192201 NAME: SOULEYMANE DAUGHERTY [facility] REC#: [id number] PT STATUS: REG ER : 1940 PHYSICIAN: CELESTINO KIMBLE APRN ADMIT DATE: 04/27/19/ER Signed Date of Exam:04/27/19 CT ANGIO CHEST W PROCEDURE: CT angiography of the chest with contrast. TECHNIQUE: Multiple contiguous axial images were obtained through the chest after uneventful bolus administration of intravenous contrast. 3D reconstructed CTA MIP acquisitions were also performed. Auto Exposure Controls were utilized during the CT exam to meet ALARA standards for radiation dose reduction. INDICATION: Chest pain. FINDINGS: There is good opacification of pulmonary arteries without intraluminal filling defect identified. There is mild aortic athetotic calcification without evidence of dissection or thoracic aortic aneurysm. Upper abdominal aorta demonstrates moderate atherosclerotic plaque. There is bilateral renal calcification without evidence of obstruction. There is diffuse background centrilobular emphysema with conglomerate regions of irregular density in the apices of both lungs, likely due to scarring. Prominent interstitial markings are seen elsewhere throughout the lungs; however, no consolidation or mass is identified. There is no significant pleural or pericardial fluid. Coronary artery calcifications are noted. IMPRESSION: No CTA evidence of pulmonary embolism. There is evidence of background COPD with mildly prominent interstitial markings diffusely which could be due to superimposed edema or pneumonitis. No consolidation is seen to indicate pneumonia. Chronic infiltrate or scarring is seen within the lung apices bilaterally. These could be further evaluated with older study if possible. Otherwise, consideration should be given to short-term CT follow-up in 4-6 months. Dictated by: Dictated on workstation # [id number] Dict: 04/27/192131 Trans: 04/27/192201 PJE [id number] Interpreted by: ERICA VILLAR MD Electronically signed by: ERICA VILLAR MD 04/27/192201 ECG Impression ECG Initial ECG Rhythm: Normal Sinus A/P-Cardiology Assessment/Admission Diagnosis Chest pain of undetermined etiology Hypertension of undetermined length of time Acute confusion possibly secondary ETOH withdrawal Acute CHF of undetermined etiology Daughter reports PVD for which he was awaiting vascular consult - details unknown H/O Abdominal aortic aneurysm measuring just under 4 cm maximum size seen at time of lumbar CT of November 2017 H/O ETOH use (whiskey) H/O "removal of growths" to throat per daughter resulting in dysphagia Tobaccoism Prob COPD Discussion and Recomendations Chest pain of undetermined etiology - no evidence of ACS thus far Echocardiogram to eval structure and function Add IV BB for BP control until alert enough to take oral medications Management of probable ETOH withdrawal is per medical services Monitor lab closely and replace electrolytes as indicated Continue Lovenox Further recs will be based on his hospital course We would like to thank medical services for this consult Clinical Quality Measures AMI/AHF: ASA po Prior to arrival: Yes DVT/VTE Risk/Contraindication: Risk Factor Score Per Nursin RFS Level Per Nursing on Admit: 3=High DIANNA VALLES Apr 28, 2019 08:43
[2019-04-28] MEDS: ENOXAPARIN 40 MG/0.4 ML (LOVENOX) SYR SC SCH (08:59)
[2019-04-28] MEDS ORDERED: meTOprolol 5 MG/5 ML (LOPRESSOR) VIAL IV NR (09:30)
--- NOTE | 2019-04-28 09:30 | Diagnostic Imaging Report ---
EXAMINATION: Chest radiograph, portable AP view. DATE: 04/28/2019 5:03 AM. INDICATION: 79-year-old male, chest pain. COMPARISON: April 27, 2019. FINDINGS: Stable overall appearance of the cardiomediastinal silhouette accounting for differences in patient positioning. There is no identified pneumothorax. There is no identified large pleural effusion. There are streaky opacities in the right lung apex. These are largely unchanged. There is also streaky opacification in the left lung apex. There are probable findings of emphysema. IMPRESSION: Pleural parenchymal scarring in the lung apices and findings of emphysema without identified interval acute cardiopulmonary abnormality. Dictated by: Dictated on workstation # [id number]
--- NOTE | 2019-04-28 09:42 | Consultation-Cardiology ---
HPI-Cardiology Cardiology Consultation: Date of Consultation 04/28/19 Time Seen by a Provider: 08:45 Date of Admission Attending Physician Shelly Manjarrez DO Admitting Physician Roger King MD Consulting Physician AUBRIE DOMINGUEZ MD, MA, FACP, FACC, FSCAI, CCDS HPI: Chief Complaint: Reason for consultation: Uncontrolled bp, chest discomfort HPI Mr. Mcmahon is a 79 year old male admitted to ICU 8 from the ED. He is cu rrently moving non-purposefully in bed; reaching out. He is moaning. Not following commands. Daughter is at the bedside. Information has been obtained from a review of the chart and discussion with nurse. Per daughter he fell at home a few days ago and was very weak. She reports he crawled to the couch in the living room. She reports he lives at home with his , who is on home dialysis. She reports he called her last night and told her he was having chest pain and thought he was having a heart attack. They daughter is tearful at the bedside. She reports EMS was called. She states he has some confusion at home, but his current condition is new. She states he does drink whiskey on a daily basis, but she is unsure of how much. She reports he does smoke, but is unsure of how much. She reports prior to this event he has not reported any CP, dyspnea or syncope. She reports he has chronic back and joint pain and uses 2 canes to ambulate. Review of Systems-Cardiology Review of Systems Constitutional: other (He is agitated and confused and unable to provide any review of systems) NBK-Eafrfb-Nhoqsr Hx Patient Social History Alcohol Use: Regular Use Recreational Drug Use: No Smoking Status: Current Everyday Smoker Type Used: Cigarettes 2nd Hand Smoke Exposure: Yes Recent Foreign Travel: No Recent Infectious Disease Expo: No Hospitalization with Isolation: Denies Past Medical History PMH As described under Assessment. Family Medical History Family Medical History: Unable to obtain any family h/o d/t AMS Allergies and Home Medications Allergies Coded Allergies: No Known Drug Allergies (Unverified , 11/27/17) Home Medications Cyclobenzaprine HCl 10 Mg Tablet, 10 MG PO Q8H Prescribed by: MIGUEL LYNN on 11/27/17 023 Naproxen 500 Mg Tablet, 500 MG PO BID Prescribed by: MIGUEL LYNN on 11/27/17231 Tramadol HCl 50 Mg Tablet, 50 MG PO Q4H Prescribed by: MIGUEL LYNN on 11/27/17231 Patient Home Medication List Home Medication List Reviewed: Yes Physical Exam-Cardiology Physical Exam Vital Signs/I&O 04/27/19 04/27/19 04/27/19 04/27/19 22:43 23:03 23:03 23:08 Temp 36.4 36.5 Pulse 63 99 75 Resp 16 25 B/P (MAP) 160/107 185/100 (128) Pulse Ox 95 96 O2 Delivery Room Air Room Air Room Air 04/27/19 04/27/19 04/27/19 04/28/19 23:19 23:30 23:45 00:00 Pulse 98 86 77 Resp 38 18 19 B/P (MAP) 200/123 (148) 217/123 (154) 176/91 (119) Pulse Ox 98 96 95 O2 Delivery Room Air Room Air Room Air Room Air 04/28/19 04/28/19 04/28/19 04/28/19 00:00 01:00 01:00 02:00 Pulse 80 67 83 75 Resp 19 21 24 B/P (MAP) 171/97 (121) 172/84 (113) 144/74 (97) Pulse Ox 94 93 94 O2 Delivery Room Air Room Air Room Air 04/28/19 04/28/19 04/28/19 04/28/19 03:00 03:28 03:30 04:00 Pulse 73 60 59 Resp 19 8 18 B/P (MAP) 106/71 (83) 122/63 (82) 83/54 (64) Pulse Ox 94 95 95 O2 Delivery Room Air Room Air Room Air Room Air 04/28/19 04/28/19 04/28/19 04/28/19 04:00 04:41 05:00 05:43 Temp 36.1 Pulse 59 50 59 59 Resp 18 24 34 B/P (MAP) 88/48 (61) 82/53 (63) Pulse Ox 94 92 95 O2 Delivery Room Air Room Air O2 Flow Rate 30.00 2.00 04/28/19 04/28/19 04/28/19 04/28/19 06:15 07:30 07:40 08:00 Temp 35.9 35.9 Pulse 73 Resp 27 B/P (MAP) 152/108 (123) Pulse Ox 89 O2 Delivery Room Air Room Air 04/28/19 00:00 Intake Total 200 ml Balance 200 ml Capillary Refill : Less Than 3 Seconds Constitutional: No AAO x 3; well-developed, well-nourished, other (not following commands; non-purposeful movement) Neck: No carotid bruit; carotid pulses are 2 + bilaterally Respiratory: No accessory muscle use, No respiratory distress; chest expansion is symmetric, chest is bilaterally symmetric, other (good air entry with prolonged expiratory phase) Cardiovascular: regular rate-rhythm; No JVD; S1 and S2, systolic murmur Gastrointestinal: audible bowel sounds Extremities: no lower extremity edema bilateral Neurologic/Psychiatric: other (moves all extremities) Skin: No rash on exposed areas, No ulcerations on exposed areas Data Review Labs Laboratory Tests 04/27/19 20:16: White Blood Count 8.2, Red Blood Count 6.25H, Hemoglobin 19.5H, Hematocrit 58H, Mean Corpuscular Volume 92, Mean Corpuscular Hemoglobin 31, Mean Corpuscular Hemoglobin Concent 34, Red Cell Distribution Width 14.8H, Platelet Count 234, Mean Platelet Volume 10.5H, Neutrophils (%) (Auto) 50, Lymphocytes (%) (Auto) 31, Monocytes (%) (Auto) 13H, Eosinophils (%) (Auto) 6, Basophils (%) (Auto) 1, Neutrophils # (Auto) 4.1, Lymphocytes # (Auto) 2.5, Monocytes # (Auto) 1.0, Eosinophils # (Auto) 0.5H, Basophils # (Auto) 0.1, Prothrombin Time 12.9, INR Comment 0.9, Activated Partial Thromboplast Time 31, D-Dimer 1.52H, Sodium Level 139, Potassium Level 4.2, Chloride Level 105, Carbon Dioxide Level 25, Anion Gap 9, Blood Urea Nitrogen 16, Creatinine 1.03, Estimat Glomerular Filtration Rate > 60, BUN/Creatinine Ratio 16, Glucose Level 98, Calcium Level 9.2, Corrected Calcium 9.4, Magnesium Level 1.7, Total Bilirubin 0.9, Aspartate Amino Transf (AST/SGOT) 18, Alanine Aminotransferase (ALT/SGPT) 15, Alkaline Phosphatase 52, Myoglobin 42.1, Troponin I < 0.028, B-Type Natriuretic Peptide 286.1H, Total Protein 6.4, Albumin 3.7, Serum Alcohol < 10 04/28/19 01:10: Urine Color YELLOW, Urine Clarity CLEAR, Urine pH 8.0, Urine Specific [place] 1.015L, Urine Protein NEGATIVE, Urine Glucose (UA) NEGATIVE, Urine Ketones NEGATIVE, Urine Nitrite NEGATIVE, Urine Bilirubin NEGATIVE, Urine Urobilinogen 0.2, Urine Leukocyte Esterase NEGATIVE, Urine RBC (Auto) 1+H, Urine RBC 10-25H, Urine WBC NONE, Urine Squamous Epithelial Cells RARE, Urine Crystals NONE, Urine Bacteria TRACE, Urine Casts NONE, Urine Mucus NEGATIVE, Urine Culture Indicated NO 04/28/19 03:25: White Blood Count 12.5H, Red Blood Count 6.36H, Hemoglobin 19.8H, Hematocrit 58H , Mean Corpuscular Volume 91, Mean Corpuscular Hemoglobin 31, Mean Corpuscular Hemoglobin Concent 34, Red Cell Distribution Width 14.8H, Platelet Count 238, Mean Platelet Volume 10.7H, Neutrophils (%) (Auto) 74, Lymphocytes (%) (Auto) 14, Monocytes (%) (Auto) 10, Eosinophils (%) (Auto) 2, Basophils (%) (Auto) 0, Neutrophils # (Auto) 9.3H, Lymphocytes # (Auto) 1.7, Monocytes # (Auto) 1.2H, Eosinophils # (Auto) 0.3, Basophils # (Auto) 0.0, Sodium Level 137, Potassium Level 3.8, Chloride Level 107, Carbon Dioxide Level 19L, Anion Gap 11, Blood Urea Nitrogen 16, Creatinine 0.94, Estimat Glomerular Filtration Rate > 60, BUN/Creatinine Ratio 17, Glucose Level 130H, Calcium Level 9.1, Corrected Calcium 9.5, Magnesium Level 1.5L, Total Bilirubin 1.2H, Aspartate Amino Transf (AST/SGOT) 19, Alanine Aminotransferase (ALT/SGPT) 15, Alkaline Phosphatase 51, Total Protein 6.2L, Albumin 3.5, Phosphorus Level 2.7, Triglycerides Level 79, Cholesterol Level 172, LDL Cholesterol Direct 119, VLDL Cholesterol 16, HDL Cholesterol 49 04/28/19 04:55: Lactic Acid Level 1.42 04/28/19 05:20: Blood Gas Puncture Site LT RADIAL, Blood Gas Patient Temperature 36.2, Arterial Blood pH 7.47H, Arterial Blood Partial Pressure CO2 34L, Arterial Blood Partial Pressure O2 74L, Arterial Blood HCO3 24, Arterial Blood Total CO2 25.3, Arterial Blood Oxygen Saturation 96, Arterial Blood Base Excess 0.7, Abhilash Test POSITIVE, Blood Gas Ventilator Setting NO, Blood Gas Inspired Oxygen ROOM AIR 04/28/19 05:55: Troponin I < 0.028 Laboratory Tests 04/27/19 20:16 04/28/19 03:25 A/P-Cardiology Assessment/Admission Diagnosis Chest discomfort of undetermined etiology, no evidence of ac cor syndrome Severe hypertension of undetermined length of time Polycythemia and leucocytosis of undetermined etiology, managed by the Hospitalist Service Acute confusion possibly secondary ETOH withdrawal, managed by the Hospitalist Service Mildly elevated BNP w/o any distinct clinical evidence of hypertension Daughter reports PVD for which he was awaiting vascular consult - details unknown H/o abdominal aortic aneurysm measuring just under 4 cm maximum size seen at time of lumbar CT of November 2017 H/o ETOH use (whiskey) H/o "removal of growths" to throat per daughter resulting in dysphagia Chronic tobaccoism Prob COPD Discussion and Recomendations Echocardiogram to eval structure and function Add IV BB for BP control until alert enough to take oral medications Management of probable ETOH withdrawal and polycythemia and leucocytosis and mental status change is per Dr Manjarrez Monitor lab closely and replace electrolytes as indicated Continue Lovenox Further recs will be based on his hospital course We would like to thank Hospitalist Services for this consult Clinical Quality Measures AMI/AHF: ASA po Prior to arrival: Yes DVT/VTE Risk/Contraindication: Risk Factor Score Per Nursin RFS Level Per Nursing on Admit: 3=High AUBRIE DOMINGUEZ MD FACP FAC CCDS Apr 28, 2019 09:42
--- NOTE | 2019-04-28 12:06 | History & Physical-Hospitalist ---
History of Present Illness HPI/Chief Complaint CC: Chest pain HPI: This is a 79yoWM who presents with malignant HTN and chest pain. Pt was placed in observation but now requiring Precedex for alcohol withdrawal. Apparently daughter told us that he stopped smoking and drinking on . He did report that he did have ultrasound done of his legs and significant peripheral vascular disease was diagnosed and stopped drinking and smoking to help with that. He remains with altered mental status due to alcohol withdrawal on Precedex Source: RN/MD Exam Limitations: clinical condition Date Seen 04/28/19 Time Seen by a Provider: 09:30 Attending Physician Shelly Manjarrez DO PCP Self,Roger MATHUR Referring Physician Date of Admission Apr 28, 2019 at 08:52 Home Medications & Allergies Home Medications Reviewed patient Home Medication Reconciliation performed by pharmacy medication reconciliations vehicle operator technician and/or nursing. Patients Allergies have been reviewed. Allergies Allergies Coded Allergies No Known Drug Allergies (Unverified11/27/17) Past Kwygngf-Amkibo-Kxvfhk Hx Past Med/Social Hx: Reviewed Nursing Past Med/Soc Hx, Reviewed and Corrections made Patient Social History Marrital Status: single Employed/Student: retired Alcohol Use: Regular Use Alcohol Beverage of Choice: Beer Recreational Drug Use: No Smoking Status: Current Everyday Smoker Type Used: Cigarettes 2nd Hand Smoke Exposure: Yes Recent Foreign Travel: No Contact w/other who traveled: No Recent Hopitalizations: No Recent Infectious Disease Expo: No Seasonal Allergies Seasonal Allergies: No Past Medical History Surgeries: Appendectomy Cardiac: High Cholesterol, Hypertension, Peripheral Vascular Gastrointestinal: Gastroesophageal Reflux History of Blood Disorders: No Review of Systems Constitutional: see HPI Physical Exam Physical Exam Vital Signs Vital Signs - First Documented 04/27/19 20:10 Temp 36.7 Pulse 75 Resp 18 B/P (MAP) 195/112 (139) Pulse Ox 95 O2 Delivery Room Air O2 Flow Rate 2.0 Capillary Refill : Less Than 3 Seconds Height, Weight, BMI Height: 6'0" Weight: 145lbs. oz. 65.252278mp; 20.00 BMI Method:Stated General Appearance: Anxious, Chronically ill, Moderate Distress, Thin Eyes: Right Eye Normal Inspection, Right Eye PERRL HEENT: PERRL/EOMI, Normal ENT Inspection, Pharynx Normal, Moist Mucous Membranes Neck: Full Range of Motion, Normal Inspection, Non Tender Respiratory: Chest Non Tender, Lungs Clear, Normal Breath Sounds, No Accessory Muscle Use, No Respiratory Distress Cardiovascular: Regular Rate, Rhythm, No Edema, No Gallop, No JVD, No Murmur, Normal Peripheral Pulses Gastrointestinal: Normal Bowel Sounds, No Organomegaly, No Pulsatile Mass, Non Tender, Soft Back: Normal Inspection, No CVA Tenderness, No Vertebral Tenderness Extremity: Normal Capillary Refill, Normal Inspection, Normal Range of Motion, Non Tender, No Calf Tenderness, No Pedal Edema Neurologic/Psychiatric: Disoriented Skin: Normal Color, Warm/Dry Lymphatic: No Adenopathy Results Results/Procedures Labs Laboratory Tests 04/27/19 20:16 04/28/19 03:25 Patient resulted labs reviewed. Assessment/Plan Admission Diagnosis Assessment: ETOH withdrawal Chest pain Malignant HTN Smoker PVD Plan: Precedex ICU monitoring Supportive care Admission Status: Inpatient Order (span 2 midnights) Reason for Inpatient Admission: ETOH withdrawal Diagnosis/Problems Diagnosis/Problems (1) Alcohol withdrawal (2) Chest pain Status: Acute Qualifiers: Chest pain type: unspecified Qualified Codes: R07.9 - Chest pain, unspecified (3) Malignant hypertension Status: Acute Clinical Quality Measures AMI/AHF: ASA po Prior to arrival: Yes DVT/VTE Risk/Contraindication: Risk Factor Score Per Nursin RFS Level Per Nursing on Admit: 3=High SHELLY MANJARREZ DO Apr 28, 2019 12:06
--- NOTE | 2019-04-28 13:00 | NUR ---
and son at bedside at this time. Family approached RN at this time requesting to speak with physician. Dr. Manjarrez notified at this time. Updates provided by this RN on pt care. Son remains upset at this time and requests answers from physicians.
[2019-04-28] MEDS: meTOprolol 5 MG/5 ML (LOPRESSOR) VIAL IV SCH ×2 (13:09→17:13)
--- NOTE | 2019-04-28 16:00 | NUR ---
Son approached this RN at this time with questions regarding pt discharge and when patient would be able to follow up with cardiovascular surgeon regarding ultrasound results from previous week. Education provided to son regarding treatment and placed social service consult to help with outpatient follow up care. Son states, "I am getting upset FYI because we are getting no where and not getting any answers." Attempted to explain that pt would have to receive treatment here first then follow up with a vascular surgeon.
[2019-04-28] MEDS ORDERED: IBUP200C11 PO (16:23)
--- NOTE | 2019-04-28 16:41 | NUR ---
UNABLE TO SPEAK WITH THE PT BUT DID TALK TO HIS TO COMPLETE THE MED REC. SHE STATES HE TAKES NO PRESCRIPTION MEDS AND ONLY TAKE ADVIL OTC
--- NOTE | 2019-04-28 18:54 | NUR ---
RAEGAN SB, PT RESTING WITH NO SIGNS OF DISTRESS, ON RA HEART RATE 56, RR 21, SPO2 94% Addendum: 04/28/19 at 1856 by SIOHBAN ANGUIANO RT Amended: Links added.
--- NOTE | 2019-04-28 22:03 | NUR ---
RICHY FIELDS IN ROOM. Addendum: 04/28/19 at 2204 by SIOBHAN ANGUIANO RT Amended: Links added.
[2019-04-29] VITALS (11 sets, daily range): BP systolic 131–152; BP diastolic 69–83
[2019-04-29 04:14] LABS: BASOPHILS # (AUTO) 0.1 10^3/uL (0.0-0.1); BASOPHILS % (AUTO) 1 % (0-10); EOSINOPHILS # (AUTO) 0.2 10^3/uL (0.0-0.3); EOSINOPHILS % (AUTO) 2 % (0-10); HEMATOCRIT 53 % (40-54); HEMOGLOBIN 18.2 G/DL (13.3-17.7); LYMPHOCYTES # (AUTO) 2.2 X 10^3 (1.0-4.0); LYMPHOCYTES % (AUTO) 25 % (12-44); MEAN CORPUSCULAR HEMOGLOBIN 31 PG (25-34); MEAN CORPUSCULAR HGB CONC 34 G/DL (32-36); MEAN CORPUSCULAR VOLUME 92 FL (80-99); MONOCYTES # (AUTO) 1.2 X 10^3 (0.0-1.0); MONOCYTES % (AUTO) 13 % (0-12); NEUTROPHILS # (AUTO) 5.2 X 10^3 (1.8-7.8); NEUTROPHILS % (AUTO) 59 % (42-75); PLATELET COUNT 213 10^3/uL (130-400); RED CELL DISTRIBUTION WIDTH 14.3 % (10.0-14.5); WHITE BLOOD COUNT 8.8 10^3/uL (4.3-11.0)
[2019-04-29 04:35] LABS: BUN/CREATININE RATIO 13; CALCIUM 8.5 MG/DL (8.5-10.1); CARBON DIOXIDE 20 MMOL/L (21-32); CHLORIDE 108 MMOL/L (98-107); CREATININE SERUM 0.86 MG/DL (0.60-1.30); GFR ESTIMATED > 60; GLUCOSE 122 MG/DL (70-105); MAGNESIUM 1.7 MG/DL (1.6-2.4); PHOSPHORUS 3.2 MG/DL (2.3-4.7); POTASSIUM 3.6 MMOL/L (3.6-5.0); SODIUM 138 MMOL/L (135-145)
--- NOTE | 2019-04-29 04:58 | Pulmonary Progress Note ---
Subjective Time Seen by a Provider: 04:57 Subjective/Events-last exam Pt is unresponsive. Lethargic Sepsis Event Evaluation Height, Weight, BMI Height: 6'0" Weight: 145lbs. oz. 65.077852rd; 20.00 BMI Method:Stated Focused Exam Lactate Level 04/28/19 04:55: Lactic Acid Level 1.42 Exam Exam Vital Signs Date Time Temp Pulse Resp B/P (MAP) Pulse Ox O2 Delivery O2 Flow Rate FiO2 04/29/19 00:00 Room Air 04/29/19 00:00 36.5 04/28/19 23:00 55 26 145/77 (99) 91 Room Air 04/28/19 22:00 74 21 157/75 (102) 93 Room Air 04/28/19 21:00 57 23 120/52 (74) 93 Room Air 04/28/19 20:00 Room Air 04/28/19 20:00 36.3 04/28/19 20:00 57 22 127/57 (80) 93 Room Air 04/28/19 19:00 62 29 134/63 (86) 95 Room Air 04/28/19 19:00 62 04/28/19 18:00 57 20 140/62 (88) 94 Room Air 04/28/19 17:00 59 19 109/45 (66) 93 Room Air 04/28/19 16:00 Room Air 04/28/19 16:00 55 22 107/46 (66) 92 Room Air 04/28/19 15:13 36.7 04/28/19 15:00 60 35 116/65 (82) 91 Room Air 04/28/19 14:00 73 36 108/75 (86) 92 Room Air 04/28/19 13:00 55 25 119/59 (79) 95 Room Air 04/28/19 12:41 57 04/28/19 12:00 60 34 127/65 (85) 94 Room Air 04/28/19 12:00 Room Air 04/28/19 11:14 36.6 04/28/19 11:00 65 22 127/73 (91) 95 Room Air 04/28/19 10:00 65 28 137/70 (92) 95 Room Air 04/28/19 09:00 82 17 165/115 (132) 96 Room Air 04/28/19 08:00 73 25 127/97 (107) 96 Room Air 04/28/19 08:00 Room Air 04/28/19 07:40 35.9 04/28/19 07:30 35.9 04/28/19 07:00 59 12 107/56 (73) 94 Room Air 04/28/19 06:43 73 04/28/19 06:15 73 27 152/108 (123) 89 Room Air 04/28/19 05:43 59 34 95 30.00 59 2.00 04/28/19 05:00 50 24 82/53 (63) 92 Room Air I & O 04/29/19 07:00 Intake Total 210 ml Output Total 750 ml Balance -540 ml Height & Weight Height: 6'0" Weight: 145lbs. oz. 65.420272rn; 20.00 BMI Method:Stated General Appearance: Anxious, Chronically ill, Mild Distress, Thin HEENT: PERRL/EOMI, Normal ENT Inspection, Pharynx Normal, Moist Mucous Membranes Neck: Full Range of Motion, Normal Inspection, Non Tender Respiratory: Chest Non Tender, Lungs Clear, Normal Breath Sounds, No Accessory Muscle Use, No Respiratory Distress Cardiovascular: Regular Rate, Rhythm, No Edema, No Gallop, No JVD, No Murmur, Normal Peripheral Pulses Capillary Refill: Less Than 3 Seconds Extremity: Normal Capillary Refill, Normal Inspection, Normal Range of Motion, Non Tender, No Calf Tenderness, No Pedal Edema Neurologic/Psychiatric: Depressed Affect, Disoriented Skin: Normal Color, Warm/Dry Lymphatic: No Adenopathy Results Lab Laboratory Tests 04/27/19 20:16 04/28/19 03:25 04/29/19 03:55 Assessment/Plan Assessment/Plan CP -Cardiology is consulted Hx of ETOH dependance -Pt's last drink was last . Pt is currently over sedated and he was over sedated yesterday. -MAI -- D/C and D/C precedex -Will order 0.5-1mg of ativan Q6PRN -Start Haldol 5mg IV Q 6 -Make pt CSD status -Pt has sitter because at times he is agitated and attempts to get out of bed. No clear signs of withdrawal. -Will also start Risperadol 1mg BID. Tobacco use -Education MAITE POWERS DO Apr 29, 2019 04:58
[2019-04-29] MEDS ORDERED: HALOPERIDOL 5 MG/ML (HALDOL) AMP IV PRN (05:00)
[2019-04-29] MEDS ORDERED: LORazepam INJ 2 MG/ML (ATIVAN) VIAL IV PRN (05:00)
[2019-04-29] MEDS ORDERED: morphine INJ 4 MG/ML 1 ML (VIAL/SYRINGE) IV PRN (05:30)
[2019-04-29] MEDS: meTOprolol 5 MG/5 ML (LOPRESSOR) VIAL IV SCH ×3 (06:10→12:39)
[2019-04-29] MEDS: POTASSIUM CL 10MEQ/50ML IVPB 50 ML IV SCH (06:28)
[2019-04-29] MEDS: KCL 20 MEQ TAB (K-DUR) PO SCH (06:28)
[2019-04-29] MEDS: cefTRIAXone FOR IV USE 1,000 MG in WATER (STERILE) FOR INJECTION 10 ML IV SCH (06:28)
[2019-04-29] MEDS: D5 LR IV SOLUTION 1,000 ML IV SCH ×4 (06:28→20:41)
[2019-04-29] MEDS: MAGNESIUM 1 GM/100 ML IVPB 100 ML IV SCH (06:28)
--- NOTE | 2019-04-29 07:55 | Diagnostic Imaging Report ---
Clinical indication: Patient with chest pain. Exam: Portable chest x-ray upright view. Comparisons: Portable chest x-ray dated 04/28/2019. Findings: There is interval development of airspace consolidation/infiltrate throughout the left lung. There is slight improved aeration of the right lung base. There is persistent airspace opacification right upper lobe. Cardiac silhouette and pulmonary vasculature is stable and unremarkable for portable projection. There is no pleural effusion or pneumothorax. There are small spurs along the thoracic spine. IMPRESSION: There is interval development of diffuse left lung infiltrate. There is slight improved aeration of the right lung base and stable right upper lobe airspace opacities. Dictated by: Dictated on workstation # [id number]
[2019-04-29] MEDS: ENOXAPARIN 40 MG/0.4 ML (LOVENOX) SYR SC SCH (08:11)
[2019-04-29] MEDS: ASPIRIN 81 MG CHEW (CHILDREN'S ASA) PO SCH (08:12)
[2019-04-29] MEDS: risperiDONE 1 MG (RisperDAL) TAB PO SCH ×2 (08:12→20:42)
--- NOTE | 2019-04-29 11:14 | NUR ---
Report called to ERIN Ricketts who will assume pt care on arrival to room 415. Staff assisted pt to wheelchair with assist x2 at this time for transport to new room. Family educated on new room and transfer. Personal belongings with pt at time of transfer.
--- NOTE | 2019-04-29 11:41 | Progress Note - Hospitalist ---
Subjective HPI/CC On Admission Date Seen by Provider: Apr 29, 2019 Time Seen by Provider: 10:00 CC: Chest pain HPI: This is a 79yoWM who presents with malignant HTN and chest pain. Pt was placed in observation but now requiring Precedex for alcohol withdrawal. Apparently daughter told us that he stopped smoking and drinking on . He did report that he did have ultrasound done of his legs and significant periphe ral vascular disease was diagnosed and stopped drinking and smoking to help with that. He remains with altered mental status due to alcohol withdrawal on Precedex Subjective/Events-last exam Transferring to fourth floor since ETOH withdrawal seems to be resolving. Updated the family. Will obtain appointment with Dr. Eaton vascular surgeon as an outpatient since there is no urgency of any acute ischemic limb. Pt is much improved. is at the bedside. Review of Systems General: Fatigue Neurological: Confusion Focused Exam Lactate Level 04/28/19 04:55: Lactic Acid Level 1.42 Objective Exam Vital Signs Vital Signs Date Time Temp Pulse Resp B/P (MAP) Pulse Ox O2 Delivery O2 Flow Rate FiO2 04/29/19 16:50 36.6 56 20 142/78 (99) 93 Room Air 04/28/19 05:43 30.00 2.00 Capillary Refill : Less Than 3 Seconds General Appearance: No Apparent Distress, WD/WN, Chronically ill, Thin Respiratory: Chest Non Tender, Lungs Clear, Normal Breath Sounds, No Accessory Muscle Use, No Respiratory Distress Cardiovascular: Regular Rate, Rhythm, No Edema, No Gallop, No JVD, No Murmur, Normal Peripheral Pulses Neurologic/Psychiatric: Alert, Oriented x3, No Motor/Sensory Deficits, Depressed Affect, Disoriented Results/Procedures Lab Laboratory Tests 04/29/19 03:55 Patient resulted labs reviewed. Assessment/Plan Assessment and Plan Assess & Plan/Chief Complaint Assessment: ETOH withdrawal Chest pain Malignant HTN Smoker PVD severe with claudication unable to ambulate normally per family Plan: 4th floor transfer Supportive care BP management PT/OT Diagnosis/Problems Diagnosis/Problems (1) Alcohol withdrawal (2) Chest pain Status: Acute Qualifiers: Chest pain type: unspecified Qualified Codes: R07.9 - Chest pain, uns pecified (3) Malignant hypertension Status: Acute Clinical Quality Measures AMI/AHF: ASA po Prior to arrival: Yes DVT/VTE Risk/Contraindication: Risk Factor Score Per Nursin RFS Level Per Nursing on Admit: 3=High BOYD HERNÁNDEZ DO Apr 29, 2019 11:40
--- NOTE | 2019-04-29 12:00 | NUR ---
took over patient care at this. patient alert but confused. family at bedside . no concerns at this time
--- NOTE | 2019-04-29 13:00 | NUR ---
patients family spoke to this RN concerned that patient had trouble putting his spoon in his mouth at lunch with his right hand. patients son asked if the medications could be affecting the patient or if the patient could be having a stroke. patient has a history per family report of right sided weakness this RN stated that and said no but assessed the patient for stroke symptoms any ways. 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 patient is able to lift both arms in the air together and separate with no drift noted. patient is also able to push against this RNs hand with his feet with equal strength patient is able to lift both legs with no drift patient is able to read words on his white board with no vocal slur noted patient is also able to easily touch is nose family watched this assessment and seemed not happy with everything being normal at this time OT and PT ordered for strengthening per ICU nurse report
--- NOTE | 2019-04-29 14:21 | Physical Therapy Evaluation ---
PT Evaluation-General Medical Diagnosis Admission Date Apr 28, 2019 at 08:52 Medical Diagnosis: CP/malignant HTN Onset Date: Apr 28, 2019 Therapy Diagnosis Therapy Diagnosis: generalized weakness/debility Height/Weight Height (Feet): 6 Height (Inches): 0 Weight (Pounds): 145 Precautions Precautions/Isolations: Fall Prevention, Standard Precautions Referral Physician: Gisele Reason for Referral: Evaluation/Treatment Medical History Pertinent Medical History: Alcoholism, GERD, Heart Failure, HTN, PVD, Smoking Additional Medical History currently detoxing from alcohol and cigarettes Current History EMS secondary to chest pain Reviewed History: Yes Social History Home: Single Level Current Living Status: Spouse Prior Prior Level of Function SCALE: Activities may be completed with or without assistive devices. 5-Gagxdwsdhq-xiqnhcp completes the activity by him/herself with no assistance from a helper. 5-Set-up or Clean-up Assistance-helper sets up or cleans up; patient completes activity. [place] assists only prior to or following the activity. 4-Supervision or Touching Assistance-helper provides verbal cues and/or touching/steadying and/or contact guard assistance as patient completes activity. Assistance may be provided throughout the activity or intermittently. 3-Partial/Moderate Assistance-helper does LESS THAN HALF the effort. [place] lifts, holds or supports trunk or limbs, but provides less than half the effort. 2-Substantial/Maximal Assistance-helper does MORE THAN HALF the effort. [place] lifts or holds trunk or limbs and provides more than half the effort. 9-Vcxfbgdit-kelfuy does ALL the effort. Patient does none of the effort to complete the activity. Or, the assistance of 2 or more helpers is required for the patient to complete the activity. If activity was not attempted, code reason: 7-Patient Refused. 9-Not Applicable-not attempted and the patient did not perform the activity before the current illness, exacerbation or injury. 10-Not Attempted due to Environmental Limitations-(lack of equipment, weather restraints, etc.). 88-Not Attempted due to Medical Conditions or Safety Concerns. Bed Mobility: 6 Transfers (B,C,W/C): 6 Gait: 6 Indoor Mobility (Ambulation): Independent Stairs: Independent Prior Devices Use: None, Walker PT Evaluation-Current Subjective Patient is very confused. Agrees to OOB activity. Objective Patient Orientation: Confused ROM/Strength ROM Lower Extremities bilateral LE WFL Strength Lower Extremities 3/5 grossly bilateral LE Integumentary/Posture Integumentary refer to nursing notes Bladder Incontinence: Yes Posture trunk flexed/flexed knee posture Neuromuscular (Tone, Coordination, Reflexes) diminished with all Sensory Vision: Wears Glasses Hearing: Functional Sensation Right Lower Extremit: Impaired Sensation Left Lower Extremity: Impaired Transfers Roll Left to Right (QC): 2 Sit to Lying (QC): 2 Lying to Sitting/Side of Bed(Q: 2 Sit to Stand (QC): 2 patient requires assistance of 1-2 for safety Gait Does the Patient Walk?: Yes Mode of Locomotion: Walk Anticipated Mode of Locomotion: Walk Walk 10 feet (QC): 2 Walk 50 ft with 2 Turns(QC): 2 Walk 150 ft (QC): 88 Distance: 60' Gait Assistive Device: FWW Comments/Gait Description PT assist to advance FWW and for sequencing Balance Sitting Static: Fair Sitting Dynamic: Fair Standing Static: Poor Standing Dynamic: Poor Assessment/Needs Patient has difficulty with following simple direction and requires redirection to remain on task. Patient is unaware of safety concerns. Patient returned to bed with 4 rails up and bed alarm activated. Rehab Potential: Fair PT Superintendent Division Goals Superintendent Division Goals PT Superintendent Division Goals Time Frame: May 17, 2019 Roll Left & Right (QC): 5 Sit to Lying (QC): 5 Lying-Sitting on Side/Bed(QC): 5 Sit to Stand (QC): 5 Chair/Dvu-wz-Hkjvo Xfer(QC): 5 Toilet Transfer (QC): 5 Does the Patient Walk: Yes Walk 10 feet (QC): 5 Walk 50ft with 2 Turns (QC): 5 Walk 150 ft (QC): 5 PT Plan Problem List Problem List: Activity Tolerance, Functional Strength, Safety, Balance, Gait, Transfer, Bed Mobility Treatment/Plan Treatment Plan: Continue Plan of Care Treatment Plan: Bed Mobility, Education, Functional Activity Khalif, Functional Strength, Gait, Safety, Therapeutic Exercise, Transfers Treatment Duration: May 17, 2019 Frequency: 6 times per week Estimated Hrs Per Day: .25 hour per day Patient and/or Family Agrees t: Yes Time/GCodes Time In: 1326 Time Out: 1339 Total Billed Treatment Time: 13 Total Billed Treatment 1 visit EVMod 13 min SIOBHAN TERRELL PT Apr 29, 2019 14:21
--- NOTE | 2019-04-29 14:51 | Occupational Therapy Eval ---
OT Evaluation-General/PLF Medical Diagnosis Admission Date Apr 28, 2019 at 08:52 Medical Diagnosis: CP/malignant HTN Onset Date: Apr 28, 2019 Therapy Diagnosis Therapy Diagnosis: impaired ADLs/functional mobility Height/Weight Height (Feet): 6 Height (Inches): 0 Weight (Pounds): 145 Precautions Precautions/Isolations: Fall Prevention, Standard Precautions Safety Interventions: Bed Exit Alarm, Diversional Activity, Reorient-Attempt, Reorient-PRN Referral Physician: Gisele Referral Reason: Activity Tolerance, Self Care, Evaluation/Treatment, Strengthening/ROM Medical History Pertinent Medical History: Alcoholism, GERD, Heart Failure, HTN, PVD, Smoking Additional Medical History appendectomy, high cholesterol, HTN, PVD, GERD, alcoholism, heart failure Current History Per H&P: "This is a 79yoWM who presents with malignant HTN and chest pain. Pt was placed in observation but now requiring Precedex for alcohol withdrawal. Apparently daughter told us that he stopped smoking and drinking on . He did report that he did have ultrasound done of his legs and significant peripheral vascular disease was diagnosed and stopped drinking and smoking to help with that. He remains with altered mental status due to alcohol withdrawal on Precedex" Reviewed History: Yes Social History Home: Single Level Current Living Status: Spouse Steps Inside Home: 2 ADL-Prior Level of Function SCALE: Activities may be completed with or without assistive devices. 0-Dzvlkptzvm-rbyjihf completes the activity by him/herself with no assistance from a helper. 5-Set-up or Clean-up Assistance-helper sets up or cleans up; patient completes activity. [place] assists only prior to or following the activity. 4-Supervision or Touching Assistance-helper provides verbal cues and/or touching/steadying and/or contact guard assistance as patient completes activity. Assistance may be provided throughout the activity or intermittently. 3-Partial/Moderate Assistance-helper does LESS THAN HALF the effort. [place] lifts, holds or supports trunk or limbs, but provides less than half the effort. 2-Substantial/Maximal Assistance-helper does MORE THAN HALF the effort. [place] lifts or holds trunk or limbs and provides more than half the effort. 7-Hiffdtgny-sgvfdi does ALL the effort. Patient does none of the effort to complete the activity. Or, the assistance of 2 or more helpers is required for the patient to complete the activity. If activity was not attempted, code reason: 7-Patient Refused. 9-Not Applicable-not attempted and the patient did not perform the activity before the current illness, exacerbation or injury. 10-Not Attempted due to Environmental Limitations-(lack of equipment, weather restraints, etc.). 88-Not Attempted due to Medical Conditions or Safety Concerns. ADL PLOF Comments Pt reports being independent with all ADLs prior to hospitalization. His reports he was able to bathe and dress himself. They have a walk in shower with a chair, but his reports they also have a bathtub that the pt likes to get down into but he has difficulty getting out due to decreased leg strength. Pt denies needing AD for ambulation, but reports pt has a cane that he uses. Self Care: Needed Some Help Functional Cognition: Needed Some Help DME/Equipment: Bath Chair (in shower), Shower (walkin), Tub OT Current Status Subjective Pt laying in bed at start of session with family/friends present. Pt agreeable to OT evaluation on this date. He did not report any pain. Mental Status/Objective Patient Orientation: Confused Current Glasses/Contacts: Yes Hearing Aids: No Dentures/Partials: Yes Hand Dominance: Right Upper Extremity ROM WFL BUE shoulder flexion to approx 150 degrees Upper Extremity Coordination WFL Upper Extremity Sensation pt denies tingling/numbness in BUEs, but his family reports he has some numbness in his hands Upper Extremity Strength grossly 3/5 MMT Other Treatments Pt laying in bed throughout session, he provided information about PLOF and home set up, with assistance from his due to errors. Pt participated in ROM screening. Pt and family educated on the purpose and benefits of OT, pt reports he would like to rest at this time. Post OT session, pt laying in bed with call light in reach and all needs met, family/friends present. Education OT Patient Education: Correct positioning, Energy conservation, Modified ADL techniques, Progress toward Goal/Update tx plan, Purpose of tx/functional activities Teaching Recipient: Patient, Family Teaching Methods: Discussion Response to Teaching: Verbalize Understanding OT Chcf Goals Chcf Goals Time Frame: May 09, 2019 Eating (QC): 6 Oral Hygiene (QC): 6 Toileting Hygiene (QC): 6 Shower/Bathe Self (QC): 4 Upper Body Dressing (QC): 6 Lower Body Dressing (QC): 4 On/Off Footwear (QC): 4 1=Demonstrate adherence to instructed precautions during ADL tasks. 2=Patient will verbalize/demonstrate understanding of assistive devices/jeff fications for ADL. 3=Patient will improve strength/tolerance for activity to enable patient to perform ADL's. OT Education/Plan Problem List/Assessment Assessment: Decreased Activ Tolerance, Decreased UE Strength, Impaired Cognition, Impaired Funct Balance, Impaired I ADL's, Impaired Self-Care Skills Discharge Recommendations Plan/Recommendations: Continue POC Treatment Plan/Plan of Care Treatment,Training & Education: Yes Patient would benefit from OT for education, treatment and training to promote independence in ADL's, mobility, safety and/or upper extremity function for ADL's. Plan of Care: ADL Retraining, Functional Mobility, UE Funct Exercise/Act Treatment Duration: May 09, 2019 Frequency: 5 times per week Estimated Hrs Per Day: .25 hour per day Rehab Potential: Fair Time/GCodes Start Time: 14:30 Stop Time: 14:40 Total Time Billed (hr/min): 10 Billed Treatment Time 1, ANTHONY ADKINS OT Apr 29, 2019 14:51
--- NOTE | 2019-04-29 15:06 | Progress Note - Cardiology ---
Cardiology SOAP Progress Note Subjective: Does not report cp today Says has been having some chest discomfort about once or twice a week, 10 min of so, nonexertional, L upper parasternal, w/o radiation, w/o associated features, w/o aggravating or relieving factors, sharp in character No exertional shortness of breath No leg swelling Feels some leg weakness, bilat, intermittent Objective: I&O/Vital Signs 04/29/19 04/29/19 04/29/19 04/29/19 03:00 04:00 04:00 05:00 Pulse 57 50 50 Resp 17 31 17 B/P (MAP) 141/71 (94) 145/79 (101) 135/70 (91) Pulse Ox 92 93 93 O2 Delivery Room Air Room Air Room Air Room Air 04/29/19 04/29/19 04/29/19 04/29/19 06:00 06:47 07:00 08:00 Pulse 56 51 52 Resp 23 12 B/P (MAP) 140/69 (92) 147/73 (97) Pulse Ox 92 O2 Delivery Room Air Room Air Room Air 04/29/19 04/29/19 04/29/19 04/29/19 08:00 08:00 10:12 12:00 Temp 36.3 Pulse 52 Resp 19 B/P (MAP) 152/83 (106) Pulse Ox 88 94 O2 Delivery Room Air Room Air Room Air 04/29/19 12:35 Pulse 64 04/29/19 00:00 Intake Total 1250 ml Output Total 400 ml Balance 850 ml Weight (Pounds): 145 Weight (Calculated Kilograms): 65.051381 Constitutional: No AAO x 3; well-developed, well-nourished, other (mildly confused, better than at time of adm) Respiratory: No accessory muscle use, No respiratory distress; chest expansion is symmetric, chest is bilaterally symmetric, other (good air entry with prolonged expiratory phase) Cardiovascular: regular rate-rhythm; No JVD; S1 and S2, systolic murmur Gastrointestional: audible bowel sounds Extremities: no lower extremity edema bilateral Neurologic/Psychiatric: No oriented x 3; other (moves all extremities) Skin: No rash on exposed areas, No ulcerations on exposed areas Results/Procedures: Labs Laboratory Tests 04/28/19 17:37: Glucometer 134H 04/28/19 23:53: Glucometer 120H 04/29/19 03:55: White Blood Count 8.8, Red Blood Count 5.83, Hemoglobin 18.2H, Hematocrit 53, Mean Corpuscular Volume 92, Mean Corpuscular Hemoglobin 31, Mean Corpuscular Hemoglobin Concent 34, Red Cell Distribution Width 14.3, Platelet Count 213, Mean Platelet Volume 11.0H, Neutrophils (%) (Auto) 59, Lymphocytes (%) (Auto) 25, Monocytes (%) (Auto) 13H, Eosinophils (%) (Auto) 2, Basophils (%) (Auto) 1, Neutrophils # (Auto) 5.2, Lymphocytes # (Auto) 2.2, Monocytes # (Auto) 1.2H, Eosinophils # (Auto) 0.2, Basophils # (Auto) 0.1, Sodium Level 138, Potassium Level 3.6, Chloride Level 108H, Carbon Dioxide Level 20L, Anion Gap 10, Blood Urea Nitrogen 11, Creatinine 0.86, Estimat Glomerular Filtration Rate > 60, BUN/Creatinine Ratio 13, Glucose Level 122H, Calcium Level 8.5, Phosphorus Level 3.2, Magnesium Level 1.7 Microbiology 04/27/19 MRSA Screen - Final, Complete MRSA not isolated Laboratory Tests 04/27/19 20:16 04/28/19 03:25 04/29/19 03:55 A/P: Assessment: Chest discomfort of undetermined etiology, no evidence of ac cor syndrome Severe hypertension of undetermined length of time Echo of 04/28/19: LVEF 55-60%, grade 1 navarro dysfunction, mild MAC, RVSP 15 mmHg Polycythemia and leucocytosis of undetermined etiology, managed by the Hospitalist Service Acute confusion of undetermined etiology, managed by Dr Manjarrez Mildly elevated BNP w/o any distinct clinical evidence of hypertension PAD. Art Duplex of lower ext at [facility] on 04/25/19: extensive calcification in both ext, monophasic bilateral inflow, occlusion of L sup fem, monophasic flow through tout L lower ext (dampened in infrapopliteal region) H/o abdominal aortic aneurysm measuring just under 4 cm maximum size seen at time of lumbar CT of November 2017 H/o ETOH use (whiskey) H/o "removal of growths" to throat per daughter resulting in dysphagia Chronic tobaccoism Prob COPD Plan: * I had a long and detailed discussion with him and his fam * Change anti-htn to oral * Continue ASA * We advised him to quit smoking immediately and completely * MPI to eval for cor ischemia * Consider peripheral angio once acute issues addressed (chest discomfort, confusion) Clinical Quality Measures AMI/AHF: ASA po Prior to arrival: Yes AUBRIE DOMINGUEZ MD FACP FAC CCDS Apr 29, 2019 15:06
[2019-04-29] MEDS ORDERED: amLODIPine 10 MG (NORVASC) TAB PO NR (15:15)
[2019-04-29] MEDS ORDERED: REGADENOSON 0.4 MG/5 ML SYR (LEXISCAN) IV ONE (15:15)
--- NOTE | 2019-04-29 17:25 | NUR ---
Obtained medical records from Dr. King's office and placed in pt's chart. Contacted Dr. Christian Diaz's office for vascular surgery evaluation and faxed medical records asking for [facility] appointment. They requested to be advised when pt discharged and they will schedule appt.Advised family and they were agreeable with plan.
--- NOTE | 2019-04-29 21:00 | NUR ---
PT CONFUSED. PULLED OUT IV LINE. PULLING AT LOPEZ CATH. THIS RN ATTEMPTED TO REDIRECT PT SEVERAL TIME. UNSUCCESSFUL.
--- NOTE | 2019-04-29 22:30 | NUR ---
NEW IV STARTED IN PT RIGHT FA. ATIVAN GIVEN AT THIS TIME.
--- NOTE | 2019-04-29 23:00 | NUR ---
PT CONTINUES TO SET OFF BED ALARM ATTEMPTING TO GET OUT OF BED. THIS RN AND PCCT ATTEMPT TO REDIRECT PT. PT STATES UNDERSTANDING HOWEVER CONTINUES TO PULL ON IV AND LOPEZ LINE. PT REDIRECTED AGAIN. PT IS NOW RESTING WITH EYES CLOSED. BED ALARM SET. WILL CONTINUE TO MONITOR.
[2019-04-30] VITALS: BP 159/84
--- NOTE | 2019-04-30 | NUR ---
PT HAS SET OFF BED ALARM NUMEROUS TIMES. PCCT SITTING IN ROOM WITH PT. THIS RN WILL ADMINISTER HALDOL.
--- NOTE | 2019-04-30 00:23 | NUR ---
HALDOL GIVEN PER EMAR. PT CONTINUES TO BE CONFUSED AND PULLING AT LINES. PCCT IN ROOM WITH PT. WILL CONTINUE TO MONITOR.
[2019-04-30] MEDS: D5 LR IV SOLUTION 1,000 ML IV SCH (00:25)
--- NOTE | 2019-04-30 00:50 | NUR ---
PT CONTINUES TO PULL AT LINES. PT ATTEMPTING TO GET OUT OF BED. PT IS NOW GETTING GETTING AGGRESSIVE WITH PCCT WHEN SHE ATTEMPTS TO REDIRECT. DR. HERNÁNDEZ CALLED AND INFORMED OF PT STATUS AND MEDICATIONS GIVEN. ORDER FOR GEODON 10MG IM NOW.
[2019-04-30] MEDS ORDERED: ZIPRASIDONE 20 MG INJ (GEODON) VIAL IM ONE ×2 (00:57→01:15)
[2019-04-30] MEDS ORDERED: WATER (STERILE) FOR INJECTION 10 ML ONE ×2 (00:58→05:47)
--- NOTE | 2019-04-30 01:16 | NUR ---
GEODON GIVEN PER ORDER. PCCT AT BEDSIDE. WILL CONTINUE TO MONITOR PT.
[2019-04-30 04:00] VITALS: BP 203/93
[2019-04-30 05:09] LABS: BASOPHILS % (AUTO) 0 % (0-10); EOSINOPHILS # (AUTO) 0.1 10^3/uL (0.0-0.3); EOSINOPHILS % (AUTO) 1 % (0-10); HEMATOCRIT 58 % (40-54); HEMOGLOBIN 19.5 G/DL (13.3-17.7); LYMPHOCYTES % (AUTO) 11 % (12-44); MEAN CORPUSCULAR HEMOGLOBIN 31 PG (25-34); MEAN CORPUSCULAR HGB CONC 34 G/DL (32-36); MEAN CORPUSCULAR VOLUME 92 FL (80-99); MEAN PLATELET VOLUME 11.5 FL (7.4-10.4); MONOCYTES % (AUTO) 11 % (0-12); NEUTROPHILS # (AUTO) 7.6 X 10^3 (1.8-7.8); NEUTROPHILS % (AUTO) 78 % (42-75); PLATELET COUNT 220 10^3/uL (130-400); RED CELL DISTRIBUTION WIDTH 14.5 % (10.0-14.5); WHITE BLOOD COUNT 9.8 10^3/uL (4.3-11.0)
[2019-04-30 05:28] LABS: ALANINE AMINOTRANSFERASE 16 U/L (0-55); ALBUMIN 3.7 GM/DL (3.2-4.5); ALKALINE PHOSPHATASE 51 U/L (40-136); BILIRUBIN,TOTAL 1.4 MG/DL (0.1-1.0); BUN/CREATININE RATIO 9; CALCIUM 9.4 MG/DL (8.5-10.1); CARBON DIOXIDE 23 MMOL/L (21-32); CHLORIDE 105 MMOL/L (98-107); CHOLESTEROL 162 MG/DL (< 200); CREATININE SERUM 0.88 MG/DL (0.60-1.30); GFR ESTIMATED > 60; GLUCOSE 100 MG/DL (70-105); HDL CHOLESTEROL 49 MG/DL (40-60); MAGNESIUM 1.5 MG/DL (1.6-2.4); PHOSPHORUS 3.3 MG/DL (2.3-4.7); POTASSIUM 3.2 MMOL/L (3.6-5.0); SODIUM 140 MMOL/L (135-145); TOTAL PROTEIN 6.7 GM/DL (6.4-8.2); TRIGLYCERIDES 81 MG/DL (<150); VLDL CHOLESTEROL 16 MG/DL (5-40)
--- NOTE | 2019-04-30 05:30 | NUR ---
DR. HERNÁNDEZ CALLED THIS RN TO CHECK ON PT STATUS. THIS RN INFORMED . PT WAS RESTFUL FOR A SHORT PERIOD OF TIME. PT THEN BEGAN TO PULL ON LINES AND ATTEMPT TO GET OUT OF BED AFTER CONTINUED REDIRECTION. ORDER FOR ATIVAN 1MG IV NOW. ALSO INFORMED PT OUTPUT IS 3,000ML. ORDER TO DECREASE FLUIDS TO 70ML/HR.
[2019-04-30] MEDS: KCL 20 MEQ TAB (K-DUR) PO SCH (05:44)
[2019-04-30] MEDS ORDERED: cefTRIAXone 1,000 MG IV (ROCEPHIN) VIAL ONE (05:47)
[2019-04-30] MEDS: cefTRIAXone FOR IV USE 1,000 MG in WATER (STERILE) FOR INJECTION 10 ML IV SCH (06:00)
[2019-04-30] MEDS ORDERED: LORazepam INJ 2 MG/ML (ATIVAN) VIAL IVP ONE (06:00)
[2019-04-30] MEDS: POTASSIUM CL 10MEQ/50ML IVPB 50 ML IV SCH ×5 (06:05→11:43)
[2019-04-30] MEDS: MAGNESIUM 1 GM/100 ML IVPB 100 ML IV SCH ×3 (06:05→07:59)
[2019-04-30] MEDS ORDERED: KCL 20 MEQ TAB (K-DUR) PO NR (06:30)
[2019-04-30] MEDS ORDERED: FUROSEMIDE 40 MG/4 ML INJ (LASIX) IVP NR (06:30)
[2019-04-30] MEDS ORDERED: FUROSEMIDE 40 MG/4 ML INJ (LASIX) ONE (06:38)
--- NOTE | 2019-04-30 06:44 | Pulmonary Progress Note ---
Subjective Time Seen by a Provider: 06:39 Subjective/Events-last exam PT was agitated trying to climb out of bed through the night. Sepsis Event Evaluation Height, Weight, BMI Height: 6'0" Weight: 145lbs. oz. 65.644420ra; 20.00 BMI Method:Stated Focused Exam Lactate Level 04/28/19 04:55: Lactic Acid Level 1.42 Exam Exam Vital Signs Date Time Temp Pulse Resp B/P (MAP) Pulse Ox O2 Delivery O2 Flow Rate FiO2 04/30/19 04:00 36.6 81 24 203/93 (129) 93 Room Air 04/30/19 01:21 102 04/30/19 00:00 37.0 83 18 159/84 (109) 94 Nasal Cannula 2.00 04/29/19 21:14 Nasal Cannula 2.00 04/29/19 20:50 70 04/29/19 20:46 36.8 78 18 150/81 (104) 93 Nasal Cannula 2.00 04/29/19 16:50 36.6 56 20 142/78 (99) 93 Room Air 04/29/19 12:35 64 04/29/19 12:00 Room Air 04/29/19 10:12 94 Room Air 04/29/19 08:00 52 19 152/83 (106) 88 Room Air 04/29/19 08:00 36.3 04/29/19 08:00 Room Air 04/29/19 07:00 52 12 147/73 (97) 92 Room Air 04/29/19 06:47 51 I & O 04/30/19 07:00 Intake Total 540 ml Output Total 5100 ml Balance -4560 ml Height & Weight Height: 6'0" Weight: 145lbs. oz. 65.193860qj; 20.00 BMI Method:Stated General Appearance: No Apparent Distress, WD/WN, Chronically ill, Thin HEENT: PERRL/EOMI, Normal ENT Inspection, Pharynx Normal, Moist Mucous Membranes Neck: Full Range of Motion, Normal Inspection, Non Tender Respiratory: Chest Non Tender, Lungs Clear, Normal Breath Sounds, No Accessory Muscle Use, No Respiratory Distress Cardiovascular: Regular Rate, Rhythm, No Edema, No Gallop, No JVD, No Murmur, Normal Peripheral Pulses Capillary Refill: Less Than 3 Seconds Extremity: Normal Capillary Refill, Normal Inspection, Normal Range of Motion, Non Tender, No Calf Tenderness, No Pedal Edema Neurologic/Psychiatric: Alert, Oriented x3, No Motor/Sensory Deficits, Depressed Affect, Disoriented Skin: Normal Color, Warm/Dry Lymphatic: No Adenopathy Results Lab Laboratory Tests 04/29/19 03:55 04/30/19 04:25 04/30/19 04:35 Assessment/Plan Assessment/Plan CP -Cardiology is consulted Hx of ETOH dependance -Pt's last drink was last . -[facility] protocol d/c'd yesterday secondary to over sedation. Dementia/agitation -I believe pt's agitation is more dementia/delirium vs alcohol withdrawal -Increase risperadol to 2mg PO BID -Haldol PRN -Ativan - increase to 1mg IV Q 4 PRN -Morphine PRN -S/P Geodon this AM -Pt is on Risperdal secondary to increased agitation attempting to climb out of bed and pulling at IVs. Geodon was given after RN called Dr. Manjarrez during the night secondary to pt being combative, throwing punches, spitting, and kicking at nurses. Ativan decreased secondary to oversedation. ABG has not shown c02 retention. Pt was placed on end tidal C02 monitor. Will transfer pt back to ICU for closer monitoring. -Continue sitter Tobacco use -Education MAITE POWERS DO Apr 30, 2019 06:44
[2019-04-30] MEDS ORDERED: hydrALAZINE (APESOLINE) 20 MG/ML VIAL IV PRN (06:45)
[2019-04-30] MEDS ORDERED: LORazepam INJ 2 MG/ML (ATIVAN) VIAL IV PRN (06:45)
[2019-04-30] MEDS ORDERED: morphine INJ 4 MG/ML 1 ML (VIAL/SYRINGE) IV PRN (06:45)
[2019-04-30] MEDS ORDERED: CATHETER FLUSH 10 ML SYR IV PRN (07:00)
[2019-04-30] MEDS ORDERED: POTASSIUM CL 10MEQ/50ML IVPB 50 ML IV SCH (07:15)
[2019-04-30 07:36] VITALS: BP 159/92
[2019-04-30] MEDS ORDERED: NS IV 1000 ML 1,000 ML IV PRN (07:45)
[2019-04-30] MEDS ORDERED: amLODIPine 5 MG (NORVASC) TAB PO SCH (09:00)
--- NOTE | 2019-04-30 09:30 | NUR ---
patient attempting to pull off tele patient also attempting to slip on staff
--- NOTE | 2019-04-30 10:18 | Physical Therapy Progress Note ---
Therapy Progress Note PT attempted, nurse in the room, she states that patient would not be able to participate with PT today. Nurse only states that patient had a rough night. Will check back tomorrow. YULIYA HODGSON PT Apr 30, 2019 10:18
--- NOTE | 2019-04-30 10:21 | NUR ---
Family called this RN into room to discuss patient and patient behavior throughout the night. This RN went though staff notes and medications administered throughout the night and early this AM with family present in the room. patent resting with family at bedside. family requesting social work consultation ( neonatal social worker notified) and family informed that doctor would be in sometime to speak to them as well
--- NOTE | 2019-04-30 11:12 | Diagnostic Imaging Report ---
CLINICAL INDICATION: Patient with confusion. EXAM: Axial CT scan of the brain without IV contrast. Auto Exposure Controls were utilized during the CT exam to meet ALARA standards for radiation dose reduction. Comparison: None. Findings: There is no gross CT evidence of acute cerebral infarct, intracranial hemorrhage, or gross mass effect. There is diffuse patchy, focal, and confluent areas of high T2 signal changes seen throughout both cerebral hemispheres and periventricular regions are unremarkable. 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 There is diffuse brain parenchymal volume loss. There is normal coleman-white matter distinction. There is no significant midline shift or herniation. There is no evidence of hydrocephalus. The basal cisterns are unremarkable. The skull, extracranial soft tissue, and orbits are unremarkable. There is mild mucosal thickening involving the ethmoid sinus, both maxillary sinuses and sphenoid sinus. Temporal bones show no significant abnormality. Impression: 1: There is no definite CT evidence of interval acute cerebral infarction, intracranial hemorrhage, or mass seen. Given the diffuse low attenuation changes throughout the brain parenchyma which can obscure more subtle findings, if there is clinical concern for acute cerebral infarction, MRI of the brain would better evaluate. 2: There is severe diffuse low-attenuation white matter changes seen throughout both cerebral hemispheres. These findings may be related to chronic small vessel ischemic disease and leukoaraiosis, but underlying leukoencephalopathy cannot be completely excluded. Comparison to prior brain imaging would help better evaluate. 3: Mild paranasal sinus disease. Dictated by: Dictated on workstation # [id number]
--- NOTE | 2019-04-30 11:35 | Occupational Ther Daily Note ---
OT Current Status-Daily Note Subjective Pt seen asleep in bed. Pt's family present. Pt's family states pt was scheduled for stress test so has not had food but then rough night/ medication delayed stress test. Pt and fmaily educated on OT role and possibility to arouse pt to participate in bed level activities. Mental Status/Objective Patient Orientation: Confused Attachments: Cunningham Catheter, IV ADL-Treatment Therapy Code Descriptions/Definitions Functional [place] Measure: 0=Not Assessed/NA 4=Minimal Assistance 1=Total Assistance 5=Supervision or Setup 2=Maximal Assistance 6=Modified [place] 3=Moderate Assistance 7=Complete IndependenceSCALE: Activities may be completed with or without assistive devices. 3-Gcrbcbeana-svjddir completes the activity by him/herself with no assistance from a helper. 5-Set-up or Clean-up Assistance-helper sets up or cleans up; patient completes activity. [place] assists only prior to or following the activity. 4-Supervision or Touching Assistance-helper provides verbal cues and/or touching/steadying and/or contact guard assistance as patient completes activity. Assistance may be provided throughout the activity or intermittently. 3-Partial/Moderate Assistance-helper does LESS THAN HALF the effort. [place] lifts, holds or supports trunk or limbs, but provides less than half the effort. 2-Substantial/Maximal Assistance-helper does MORE THAN HALF the effort. [place] lifts or holds trunk or limbs and provides more than half the effort. 0-Qypgturfg-zovozo does ALL the effort. Patient does none of the effort to complete the activity. Or, the assistance of 2 or more helpers is required for the patient to complete the activity. If activity was not attempted, code reason: 7-Patient Refused. 9-Not Applicable-not attempted and the patient did not perform the activity befo re the current illness, exacerbation or injury. 10-Not Attempted due to Environmental Limitations-(lack of equipment, weather re straints, etc.). 88-Not Attempted due to Medical Conditions or Safety Concerns. Eating (QC): 88 Other Treatment Pt seen in bed. Family educated on attempt to arouse for participation in therapy. Pt's family agrees, stating he has been in/out of sleep. Pt asleep, eyes closed. Wet cloth placed on pt's head/ neck/ arms/ legs to arouse, light on. Pt opens eyes and responds to OT. Pt follows directions to raise R arm, completes to full PROM. Pt mumbles words, unable to be understood. Pt's places dentures in pt's mouth, pt adjusts for clearer communication. Pt able to communicate at times through session. Completes L arm with PROM/ able to hold in shoulder flexion for ~15 seconds, unable to follow directions to place back down on bed. Pt's nurse notified of family's concerns and NPO status. Nursing states pt had difficulties in night and was unable to complete stress test, DO notified of NPO, though nursing and OT agree pt is unable to be stimulated/ oriented/ alert enough for safe feeding. Pt's family educated on pt's inability to safely attend, but nursing is taking care of pt through IV and DO communication. Family understands. Pt's family educated on allowing pt to rest but encouraging AROM of UE when more alert. Family understands. Pt left in bed with call light in reach, family notified, all needs met. Education OT Patient Education: Correct positioning, Instructions to caregiver, Reviewed precautions, Safety issues Teaching Recipient: Patient, Family, Significant Other Teaching Methods: Demonstration, Discussion Response to Teaching: Verbalize Understanding, Return Demonstration, Reinforcement Needed OT Long-Term Goals Long-Term Goals Time Frame: May 09, 2019 Eating (QC): 6 Oral Hygiene (QC): 6 Toileting Hygiene (QC): 6 Shower/Bathe Self (QC): 4 Upper Body Dressing (QC): 6 Lower Body Dressing (QC): 4 On/Off Footwear (QC): 4 1=Demonstrate adherence to instructed precautions during ADL tasks. 2=Patient will verbalize/demonstrate understanding of assistive devices/modifications for ADL. 3=Patient will improve strength/tolerance for activity to enable patient to perform ADL's. OT Education/Plan Problem List/Assessment Assessment: Decreased Activ Tolerance, Decreased Safety Aware, Decreased UE Strength, Dependent Transfers, Impaired Cognition, Impaired Funct Balance, Impaired I ADL's, Impaired Self-Care Skills Discharge Recommendations Plan/Recommendations: Continue POC Treatment Plan/Plan of Care Treatment,Training & Education: Yes Patient would benefit from OT for education, treatment and training to promote independence in ADL's, mobility, safety and/or upper extremity function for ADL's. Plan of Care: ADL Retraining, Functional Mobility, UE Funct Exercise/Act Treatment Duration: May 09, 2019 Frequency: 5 times per week Estimated Hrs Per Day: .25 hour per day Rehab Potential: Fair Time/GCodes Start Time: 11:12 Stop Time: 11:27 Total Time Billed (hr/min): 15 Billed Treatment Time 1, FA (15) KERI ALAS OTR Apr 30, 2019 11:35
[2019-04-30] MEDS ORDERED: PIPERACILLIN/TAZOBACTAM (BULK) 4.5 GM in NS (IVPB) 100 ML IV NR (11:43)
--- NOTE | 2019-04-30 11:53 | NUR ---
VANCOMYCIN DOSING SCR 0.88 (USED 1.0); CRCL ~ 65; BOLUS VANC 20 MG/KG X 75 MG ~ 1500 MG THEN VANC 15 MG/KG ~ 1 GM Q12H CHECK TROUGH LEVEL 05/02 1100 HOLD DOSE AND CONTACT PHARMACY IF LEVEL IS GREATER THAN 20
[2019-04-30 11:55] VITALS: BP 138/74
[2019-04-30 11:56] LABS: ABG BASE EXCESS 0.6 MMOL/L (-2.5-2.5); ABG OXYGEN SATURATION 94 % (94-100); ABG PCO2 30 MMHG (35-45); ABG PO2 61 MMHG (79-93); ABG TCO2 24.6 MMOL/L (21.0-31.0)
[2019-04-30 11:57] LABS: ALLENS TEST POSITIVE; INSPIRED O2 30%; PATIENT TEMP 36.6; VENTILATOR NO
[2019-04-30] MEDS ORDERED: VANCOMYCIN INJECTION 1,500 MG in NS IV 500 ML 500 ML IV NR (12:00)
[2019-04-30] MEDS: ASPIRIN 81 MG CHEW (CHILDREN'S ASA) PO SCH (12:45)
[2019-04-30] MEDS: lisINopril 20 MG (PRINIVIL) TABLET PO SCH (12:46)
[2019-04-30] MEDS: meTOprolol TARTRATE 50 MG (LOPRESSOR) TAB PO SCH ×2 (12:46→22:35)
[2019-04-30] MEDS: amLODIPine 10 MG (NORVASC) TAB PO SCH (12:46)
[2019-04-30] MEDS: risperiDONE 1 MG (RisperDAL) TAB PO SCH ×2 (12:46→22:34)
[2019-04-30] MEDS: ENOXAPARIN 40 MG/0.4 ML (LOVENOX) SYR SC SCH (12:47)
--- NOTE | 2019-04-30 12:54 | Progress Note - Cardiology ---
Cardiology SOAP Progress Note Subjective: Confused and agitated at the time of my exam this am. Sitter by bedside. He was not able to describe any symptoms or provide any history Objective: I&O/Vital Signs 04/30/19 04/30/19 04/30/19 04/30/19 01:21 04:00 06:49 07:36 Temp 36.6 36.4 Pulse 102 81 66 76 Resp 24 16 B/P (MAP) 203/93 (129) 159/92 (114) Pulse Ox 93 96 O2 Delivery Room Air Room Air 04/30/19 04/30/19 04/30/19 04/30/19 09:00 11:43 11:55 12:02 Temp 36.6 Pulse 92 Resp 20 B/P (MAP) 138/74 (95) Pulse Ox 90 92 94 O2 Delivery Room Air Room Air Room Air Nasal Cannula O2 Flow Rate 3.00 04/30/19 00:00 Intake Total 540 ml Output Total 2050 ml Balance -1510 ml Weight (Pounds): 145 Weight (Calculated Kilograms): 65.887226 Constitutional: No AAO x 3; well-developed, well-nourished, other (very confused, agitated, nonverbal) Respiratory: No accessory muscle use, No respiratory distress; chest expansion is symmetric, chest is bilaterally symmetric, other (good air entry with prolonged expiratory phase) Cardiovascular: regular rate-rhythm; No JVD; S1 and S2, systolic murmur Gastrointestional: audible bowel sounds Extremities: no lower extremity edema bilateral Neurologic/Psychiatric: No oriented x 3; other (moves all extremities) Skin: No rash on exposed areas, No ulcerations on exposed areas Results/Procedures: Labs Laboratory Tests 04/30/19 04:25: White Blood Count 9.8, Red Blood Count 6.32H, Hemoglobin 19.5H, Hematocrit 58H, Mean Corpuscular Volume 92, Mean Corpuscular Hemoglobin 31, Mean Corpuscular Hemoglobin Concent 34, Red Cell Distribution Width 14.5, Platelet Count 220, Mean Platelet Volume 11.5H, Neutrophils (%) (Auto) 78H, Lymphocytes (%) (Auto) 11L, Monocytes (%) (Auto) 11, Eosinophils (%) (Auto) 1, Basophils (%) (Auto) 0, Neutrophils # (Auto) 7.6, Lymphocytes # (Auto) 1.0, Monocytes # (Auto) 1.0, Eosinophils # (Auto) 0.1, Basophils # (Auto) 0.0 04/30/19 04:35: Sodium Level 140, Potassium Level 3.2L, Chloride Level 105, Carbon Dioxide Level 23, Anion Gap 12, Blood Urea Nitrogen 8, Creatinine 0.88, Estimat Glomerular Filtration Rate > 60, BUN/Creatinine Ratio 9, Glucose Level 100, Calcium Level 9.4, Corrected Calcium 9.6, Phosphorus Level 3.3, Magnesium Level 1.5L, Total Bilirubin 1.4H, Aspartate Amino Transf (AST/SGOT) 27, Alanine Aminotransferase (ALT/SGPT) 16, Alkaline Phosphatase 51, Total Protein 6.7, Albumin 3.7, T riglycerides Level 81, Cholesterol Level 162, LDL Cholesterol Direct 110, VLDL Cholesterol 16, HDL Cholesterol 49, Thyroid Stimulating Hormone (TSH) 2.56 04/30/19 11:30: Lactic Acid Level 1.37 04/30/19 11:50: Blood Gas Puncture Site RIGHT RADIAL, Blood Gas Patient Temperature 36.6, Arterial Blood pH 7.50H, Arterial Blood Partial Pressure CO2 30L, Arterial Blood Partial Pressure O2 61L, Arterial Blood HCO3 24, Arterial Blood Total CO2 24.6, Arterial Blood Oxygen Saturation 94, Arterial Blood Base Excess 0.6, Abhilash Test POSITIVE, Blood Gas Ventilator Setting NO, Blood Gas Inspired Oxygen 30% Microbiology 04/28/19 Blood Culture - Preliminary, Resulted No growth 04/27/19 MRSA Screen - Final, Complete MRSA not isolated A/P: Assessment: Acute confusion of undetermined etiology, managed by Dr Manjarrez Chest discomfort of undetermined etiology, no evidence of ac cor syndrome Severe hypertension of undetermined length of time Echo of 04/28/19: LVEF 55-60%, grade 1 navarro dysfunction, mild MAC, RVSP 15 mmHg Polycythemia and leucocytosis of undetermined etiology, managed by Dr Manjarrez Mildly elevated BNP w/o any distinct clinical evidence of hypertension PAD. Art Duplex of lower ext at [facility] on 04/25/19: extensive calcification in both ext, monophasic bilateral inflow, occlusion of L sup fem, monophasic flow through tout L lower ext (dampened in infrapopliteal region) H/o abdominal aortic aneurysm measuring just under 4 cm maximum size seen at time of lumbar CT of November 2017 H/o ETOH use (whiskey) H/o "removal of growths" to throat per daughter resulting in dysphagia Chronic tobaccoism Prob COPD Plan: * Continue therapy for hypertension * Continue ASA * We advised him yesterday (when he was coherent) to quit smoking immediately and completely * MPI to eval for cor ischemia was planned for today, but will have to be postponed because of confusion and agitation (Dr Manjarrez managing) * Consider peripheral angio once acute issues addressed Clinical Quality Measures AMI/AHF: ASA po Prior to arrival: Yes AUBRIE DOMINGUEZ MD FACP FACC CCDS Apr 30, 2019 12:54
--- NOTE | 2019-04-30 12:57 | NUR ---
report called to Quyen KHAN in ICU. patient to be transferred to CU2
--- NOTE | 2019-04-30 13:26 | Pulmonary Progress Note ---
Standard Progress Note Progress Notes Date Seen by Provider: Apr 30, 2019 Time Seen by Provider: 11:00 Called to bedside to discuss with family regarding pt's current condition. They are concerned because pt is lethargic and confused. I explained to family with RN present about pt getting more sedation through the night secondary to agitation and aggression. I answered all of their questions and concerns. I will move pt up to ICU for closer monitoring. ABG was done and looks ok. I am also placing pt on end tidal C02 monitor. Assessment & Plan CP -Cardiology is consulted Hx of ETOH dependance -Pt's last drink was last . -[facility] protocol d/c'd yesterday secondary to over sedation. Dementia/agitation -I believe pt's agitation is more dementia/delirium vs alcohol withdrawal -Increase risperadol to 2mg PO BID -Haldol PRN -Ativan - increase to 1mg IV Q 4 PRN -Morphine PRN -S/P Geodon this AM -Continue sitter Tobacco use -Education Transfer pt to ICU. total time spent with family is medical staff discussing details of pt's care is about 60min not including this morning's visit. Critical Care: Critically Ill Patient Time spent with patient (mins): 60 Focused Exam Lactate Level 04/28/19 04:55: Lactic Acid Level 1.42 04/30/19 11:30: Lactic Acid Level 1.37 Lactic Acid Level Laboratory Tests Test 04/30/19 11:30 Lactic Acid Level 1.37 MMOL/L (0.50-2.00) MAITE POWERS DO Apr 30, 2019 13:26
--- NOTE | 2019-04-30 13:35 | NUR ---
Patient arrived to room CU2. Report received from Liliam KHAN.
--- NOTE | 2019-04-30 13:45 | Progress Note - Hospitalist ---
CLARITZA LAYTON, MEDICAL STUDENT 04/30/19 1345: Subjective HPI/CC On Admission CC: Chest pain HPI: This is a 79yoWM who presents with malignant HTN and chest pain. Pt was placed in observation but now requiring Precedex for alcohol withdrawal. Apparently daughter told us that he stopped smoking and drinking on . He did report that he did have ultrasound done of his legs and significant peripheral vascular disease was diagnosed and stopped drinking and smoking to help with that. He remains with altered mental status due to alcohol withdrawal on Precedex Subjective/Events-last exam Patient was moved to 4th floor out of ICU yesterday Remains agitated throughout the night - Nurses explained he was swinging his extremities and pulling out IVs Was eventually given Haldol, Risperidone and Ativan Currently resting comfortably Patient was later sent for stress test by cardiology, son cancelled test as he believes his father will do better after a meal. Focused Exam Lactate Level 04/28/19 04:55: Lactic Acid Level 1.42 04/30/19 11:30: Lactic Acid Level 1.37 Lactic Acid Level Laboratory Tests Test 04/30/19 11:30 Lactic Acid Level 1.37 MMOL/L (0.50-2.00) Objective Exam Vital Signs Vital Signs Date Time Temp Pulse Resp B/P (MAP) Pulse Ox O2 Delivery O2 Flow Rate FiO2 04/30/19 12:42 92 04/30/19 12:02 94 Nasal Cannula 3.00 04/30/19 11:55 36.6 20 138/74 (95) Capillary Refill : Less Than 3 Seconds General Appearance: Chronically ill HEENT: PERRL/EOMI, Pharynx Normal, Moist Mucous Membranes Neck: Full Range of Motion, Non Tender, Supple Respiratory: Chest Non Tender, Lungs Clear, Normal Breath Sounds, No Respiratory Distress Cardiovascular: Regular Rate, Rhythm, No JVD, No Murmur, Other Gastrointestinal: Normal Bowel Sounds, No Pulsatile Mass, Non Tender Rectal: Deferred Back: Normal Inspection, No Vertebral Tenderness Extremity: Normal Range of Motion, Non Tender Skin: Normal Color, Warm/Dry Results/Procedures Lab Laboratory Tests 04/30/19 04:25 04/30/19 04:35 Patient resulted labs reviewed. Radiology Head CT 04/30/2019 Impression: 1: There is no definite CT evidence of interval acute cerebral infarction, intracranial hemorrhage, or mass seen. Given the diffuse low attenuation changes throughout the brain parenchyma which can obscure more subtle findings, if there is clinical concern for acute cerebral infarction, MRI of the brain would better evaluate. 2: There is severe diffuse low-attenuation white matter changes seen throughout both cerebral hemispheres. These findings may be related to chronic small vessel ischemic disease and leukoaraiosis, but underlying leukoencephalopathy cannot be completely excluded. Comparison to prior brain imaging would help better evaluate. 3: Mild paranasal sinus disease. CXR 04/29/2019 IMPRESSION: There is interval development of diffuse left lung infiltrate. There is slight improved aeration of the right lung base and stable right upper lobe airspace opacities. Assessment/Plan Assessment and Plan Assess & Plan/Chief Complaint 79 YO M who originally presented with chest pain while he was using the restroom. The pain resolved with a nitro and morphine on the way to the hospital. Of note, the patient also recently quit smoking and drinking after regularly using both for 40+ years. Since his admission the patient has become frequently agitated and required sedation. Starting Vanc + Zosyn for new L Lung Infiltrate found on CXR Head CT shows diffuse leukoencephalopathy, leukoariosis and chronic small vessel ischemia - patient likely has underlying vascular dementia Agitation likely due to mixed picture of Alcohol Withdrawal, Delirium and Vascular Dementia - Patient is at high risk for seizures due to withdrawal - Manage seizures with PRN ativan Appreciate cardiology recs - Patient's son cancelled stress test because he believed his father needed to eat a meal BP Management - Patient's blood pressure spikes according to agitation Supportive management PT/OT Clinical Quality Measures AMI/AHF: ASA po Prior to arrival: Yes DVT/VTE Risk/Contraindication: Risk Factor Score Per Nursin RFS Level Per Nursing on Admit: 3=High SHELLY HERNÁNDEZ DO 04/30/19 2009: Subjective HPI/CC On Admission Date Seen by Provider: Apr 30, 2019 Time Seen by Provider: 10:00 Subjective/Events-last exam Pt transferred to cardiac step-down after Dr. Jaquez was consulted. Dr. Diaz updated everyone that he could not undergo the stress test due to agitation. Major sun-downing and delirium last night requiring anti-psychotics to calm him. CT of the brain showed leukoencephalopathy but otherwise denies any significant pain. Family updated but son extremely aggressive towards this examiner. Will try to reassure and do everything we can for this patient but he did smoke for 65 years and has had a complete decompensation with alcohol withdrawal being the main one. Will broaden antibiotic spectrum to Zosyn and Vanc, DC the Rocephin due to new left lower lobe infiltrate, could be aspiration. Review of Systems General: Fatigue Neurological: Confusion Objective Exam General Appearance: No Apparent Distress, WD/WN, Chronically ill, Thin Respiratory: Lungs Clear Cardiovascular: Regular Rate, Rhythm Neurologic/Psychiatric: Alert, Disoriented Assessment/Plan Assessment and Plan Assess & Plan/Chief Complaint Dr Jaquez and Dr Diaz appreciated in providing their expertise and reassurance to the family especially his son who was aggressive towards this examiner and appears to be at risk for violence towards me (pacing on the other side of the room getting more agitated while I explain the clinical update to family and patient's ) so will monitor his interactions closely Diagnosis/Problems Diagnosis/Problems (1) Alcohol withdrawal (2) PVD (peripheral vascular disease) (3) Claudication (4) Smoker (5) Delirium (6) Vascular dementia (7) Frailty (8) Facility-acquired pneumonia (9) Malignant hypertension Status: Acute (10) Chest pain Status: Acute Qualifiers: Qualified Codes: R07.9 - Chest pain, unspecified Supervisory-Addendum Brief Verification & Attestation Participated in pt care: history, MDM, physical Personally performed: exam, history, MDM, supervision of care Care discussed with: Medical Student Procedures: n/a Results interpretation: Verified all documentation Verification and Attestation of Medical Student E/M Service A medical student performed and documented this service in my presence. I revie wed and verified all information documented by the medical student and made modifications to such information, when appropriate. I personally performed the physical exam and medical decision making. Shelly Hernández, Apr 30, 2019,20:08 CLARITZA LAYTON, MEDICAL STUDENT Apr 30, 2019 13:45 SHELLY HERNÁNDEZ DO Apr 30, 2019 20:09
--- NOTE | 2019-04-30 13:54 | Occ Therapy Progress Note ---
Therapy Progress Note Per nursing pt moving to ICU, new orders needed for continued therapy treatment. KERI ALAS OTR Apr 30, 2019 13:54
[2019-04-30 16:00] VITALS: BP 129/86
[2019-04-30] MEDS: PIPERACILLIN/TAZOBACTAM (BULK) 4.5 GM in NS (IVPB) 100 ML IV SCH (18:06)
[2019-04-30] MEDS: D5 1/2 NS 1000 ML IV SOLUTION 1,000 ML IV SCH (18:14)
--- NOTE | 2019-04-30 18:15 | NUR ---
telephone order received from for D51/2NS at 75ml/hr
[2019-04-30 20:00] VITALS: BP 146/84
--- NOTE | 2019-04-30 21:30 | NUR ---
PATIENTS SON DOES NOT WANT HIM GETTING ANY TYPE OF PSYCH MEDICATION DUE TO THE PATIENTS LETHARGY AND CONFUSION OVER THE PAST COUPLE DAYS. THE SON BELIEVE HIS MENTAL STATUS CHANGE IS DUE TO THE MEDICATIONS THE PATIENT IS RECEIVING.
[2019-04-30] MEDS: VANCOMYCIN 1 GM/NS 250 ML IVPB IV SCH ×2 (23:21)
[2019-05-01] MEDS: PIPERACILLIN/TAZOBACTAM (BULK) 4.5 GM in NS (IVPB) 100 ML IV SCH ×3 (01:42→18:07)
[2019-05-01 02:00] VITALS: BP 178/93
[2019-05-01 02:30] VITALS: BP 151/73
[2019-05-01 04:08] LABS: BASOPHILS # (AUTO) 0.1 10^3/uL (0.0-0.1); BASOPHILS % (AUTO) 1 % (0-10); EOSINOPHILS # (AUTO) 0.1 10^3/uL (0.0-0.3); EOSINOPHILS % (AUTO) 0 % (0-10); HEMATOCRIT 55 % (40-54); HEMOGLOBIN 19.1 G/DL (13.3-17.7); LYMPHOCYTES # (AUTO) 1.3 X 10^3 (1.0-4.0); LYMPHOCYTES % (AUTO) 11 % (12-44); MEAN CORPUSCULAR HEMOGLOBIN 32 PG (25-34); MEAN CORPUSCULAR HGB CONC 35 G/DL (32-36); MEAN CORPUSCULAR VOLUME 91 FL (80-99); MEAN PLATELET VOLUME 11.3 FL (7.4-10.4); MONOCYTES # (AUTO) 1.4 X 10^3 (0.0-1.0); MONOCYTES % (AUTO) 11 % (0-12); NEUTROPHILS # (AUTO) 9.2 X 10^3 (1.8-7.8); NEUTROPHILS % (AUTO) 77 % (42-75); PLATELET COUNT 246 10^3/uL (130-400); RED CELL DISTRIBUTION WIDTH 14.1 % (10.0-14.5)
[2019-05-01 04:32] LABS: BUN/CREATININE RATIO 12; CALCIUM 8.8 MG/DL (8.5-10.1); CARBON DIOXIDE 20 MMOL/L (21-32); CHLORIDE 106 MMOL/L (98-107); GFR ESTIMATED > 60; GLUCOSE 101 MG/DL (70-105); MAGNESIUM 1.8 MG/DL (1.6-2.4); PHOSPHORUS 3.8 MG/DL (2.3-4.7); POTASSIUM 3.8 MMOL/L (3.6-5.0); SODIUM 139 MMOL/L (135-145)
--- NOTE | 2019-05-01 05:30 | Pulmonary Progress Note ---
Subjective Date Seen by a Provider: May 01, 2019 Time Seen by a Provider: 05:25 Subjective/Events-last exam PT is more awake today. Son is at bedside. Sepsis Event Evaluation Height, Weight, BMI Height: 6'0" Weight: 145lbs. oz. 65.643391zm; 20.00 BMI Method:Stated Focused Exam Lactate Level 04/30/19 11:30: Lactic Acid Level 1.37 Exam Exam Vital Signs Date Time Temp Pulse Resp B/P (MAP) Pulse Ox O2 Delivery O2 Flow Rate FiO2 05/01/19 04:00 81 35 92 Nasal Cannula 2.00 05/01/19 02:30 151/73 (99) 05/01/19 02:00 178/93 (121) 05/01/19 01:00 80 05/01/19 00:00 73 34 95 Nasal Cannula 2.00 04/30/19 22:05 95 Room Air 04/30/19 21:00 Room Air 04/30/19 20:00 146/84 (104) 04/30/19 20:00 92 27 96 Nasal Cannula 2.00 04/30/19 19:43 100 04/30/19 19:01 37.0 04/30/19 17:00 36.8 04/30/19 16:21 95 OxyMask 3.00 04/30/19 16:00 84 29 129/86 (100) 97 Nasal Cannula 22.00 04/30/19 12:42 92 04/30/19 12:02 94 Nasal Cannula 3.00 04/30/19 11:55 36.6 92 20 138/74 (95) 92 Room Air 04/30/19 11:43 90 Room Air 04/30/19 09:00 Room Air 04/30/19 07:36 36.4 76 16 159/92 (114) 96 Room Air 04/30/19 06:49 66 I & O 05/01/19 07:00 Intake Total 0 ml Output Total 525 ml Balance -525 ml Height & Weight Height: 6'0" Weight: 145lbs. oz. 65.963025eb; 20.00 BMI Method:Stated General Appearance: No Apparent Distress, WD/WN, Chronically ill, Thin HEENT: PERRL/EOMI, Pharynx Normal, Moist Mucous Membranes Neck: Full Range of Motion, Non Tender, Supple Respiratory: Lungs Clear Cardiovascular: Regular Rate, Rhythm Capillary Refill: Less Than 3 Seconds Extremity: Normal Range of Motion, Non Tender Neurologic/Psychiatric: Alert, Disoriented Skin: Normal Color, Warm/Dry Lymphatic: No Adenopathy Results Lab Laboratory Tests 04/30/19 04:25 04/30/19 04:35 05/01/19 03:36 Assessment/Plan Assessment/Plan CP -Cardiology is consulted Hx of ETOH dependance -Pt's last drink was last . -CIWA protocol d/c'd yesterday secondary to over sedation. Dementia/agitation -All sedating meds stopped secondary to over sedation yesterday including CIWA protocol. -Family is very concerned. I offered to transfer pt to [place] for neurology yesterday however son declined transfer. -Pt's son stayed with him all night to reorientate pt. -Continue sitter -Pt was on risperadol secondary to increased agitation attempting to climb out of bed and pulling at IVs. Geodon was given after RN called Dr. Manjarrez during the night secondary to pt being combative and throwing punches, spitting, and kicking at nurses. Ativan decreased then d/c'd secondary to oversedation. ABG has not shown c02 retention. Pt was placed on end tidal C02 monitor. -Pt is more awake today. Will get swallow eval this AM Right elbow pain inflammation -Check uric acid -Check dopplers of RUE -Check Xray of right elbow Worsening leukocytosis -Check CXR -Pt is currently on Zosyn and Vanco -Check UA -Cultures are negative thus far Deconditioning -PT/OT PVD -ASA -Dr. Diaz is managing Tobacco use -Education MAITE POWERS DO May 01, 2019 05:30
[2019-05-01] MEDS: KCL 20 MEQ TAB (K-DUR) PO SCH (06:04)
[2019-05-01] MEDS: MAGNESIUM 1 GM/100 ML IVPB 100 ML IV SCH (06:04)
[2019-05-01] MEDS: POTASSIUM CL 10MEQ/50ML IVPB 50 ML IV SCH (06:04)
--- NOTE | 2019-05-01 07:10 | Diagnostic Imaging Report ---
INDICATION: Shortness of breath COMPARISON STUDY: Chest from 2 days ago. FINDINGS: A frontal view of the chest demonstrates heart size to be smaller. Bilateral pulmonary infiltrates, left greater than right, have improved. The infiltrates are mainly interstitial and fairly symmetric at this time. IMPRESSION: Heart size is decreased with improving pulmonary infiltrates. Dictated by: Dictated on workstation # [id number]
[2019-05-01] MEDS: D5 1/2 NS 1000 ML IV SOLUTION 1,000 ML IV SCH ×2 (08:13→15:42)
--- NOTE | 2019-05-01 09:05 | ST Dysphagia Evaluation ---
Speech Evaluation-General Medical Diagnosis CP/malignant HTN Onset Date: Apr 28, 2019 Therapy Diagnosis Therapy Diagnosis: Oropharyngeal Dysphagia Referral Referring Physician: Dr. Jaquez Reason for Referral: Evaluation/Treatment Medical History Pertinent Medical History: Alcoholism, GERD, Heart Failure, HTN, PVD, Smoking Reviewed History: Yes Social History Current Living Status: Spouse Speech PLF/Current-Dysphagia Prior Level of Function Patient reported having no problems with swallow functions prior to hospital admission. Subjective Patient was alert, pleasant, and cooperative for all evaluation tasks. Patient sat upright in his bed for the duration of the evaluation. Cognitive Status Patient Orientation: Person, Place, Time, Eyes Open, Situation Oral Motor Skills Denture Type: Full- Upper & Lower Current Food Consistancy: Regular Ability to Follow Directions: Good Oral Expression Ability: No Impairment Voice Voice Phonatory-Based Quality: Normal Voice Pitch: Normal Voice Loudness: Normal Face Facial Symmetry: Symmetrical Oral-Facial Assessment Oral-Facial Dentition: Normal Labial Seal Description: Normal Smile: Normal Lingual Protrusion: Normal Lingual ROM: Normal Lingual Strength: Normal Dysphagia Evaluation Consistencies Presented: Regular, Thin Liquid, Mechanical Soft, Pureed Dietary Recommendations: Regular Liquid Recommendations: Thin Swallowing Precautions: Alternate Liquids/Solids, Double Swallow, Decreased Bolus 1/2 Tsp, Liquids from Cup, Liquids from Straw, Small Bites and Sips, Sitti ng Upright 90 Degrees, Sitting 90 Degrees 30 Post Intake Dysphagia Evaluation Summary Patient was admitted to the ACUTE floor s/p malignant HTN. Patient was presented thin liquid consistency via 1/2 tsp spoon and straw. Patient demonstrated no s/s of penetration/aspiration. Patient was then presented puree, mechanical soft, and cracker consistencies via 1/2 tsp spoon and presented with no s/s of penetration/aspiration. It is recommended that patient receive a DYSPHAGIA III regular diet with thin liquids. Patient was provided education on utilizing compensatory strategies of sitting upright and alternating liquids and solids during all mealtimes. Barriers to Learning None identified. Speech-Plan Patient/Family Goals Patient/Family Goals: Patient reported that he wishes to eat regular foods. Treatment Plan Speech Therapy Treatment Plan: Discontinue ST Treatment Duration: May 01, 2019 Frequency: 1 time per week Estimated Hrs Per Day: .25 hour per day Rehab Potential: Good Barriers to Learning: None identified. Pt/Family Agrees to Plan: Yes Safety Risks/Education Teaching Recipient: Patient, Family Teaching Methods: Demonstration Response to Teaching: Verbalize Understanding Education Topics Provided: Utilization of compensatory strategies during all mealtimes to promote safe and effective swallow function. Time Speech Therapy Time In: 08:30 Speech Therapy Time Out: 08:45 Total Billed Time: 15 Billed Treatment Time 1, MEREDITH Tadeo May 01, 2019 09:05
--- NOTE | 2019-05-01 09:45 | Diagnostic Imaging Report ---
EXAMINATION: Right elbow at 9:19 AM INDICATION: Elbow pain 3 views were obtained. There are no prior studies available for comparison. There is mild deformity of the radial head. I suspect that this is a sequela of prior trauma. There also appear to be calcific densities in the soft tissues along the lateral aspect of the elbow joint. These too could be related to a previous injury to the elbow joint. There is no acute fracture identified and the posterior fat-pad is not elevated. There does seem to be moderate degenerative disease of the elbow joint. There also appears to be mild soft tissue swelling about the elbow joint. IMPRESSION: 1. There are posttraumatic and degenerative changes involving the elbow joint. There is no acute abnormality identified. 2. If clinical concern regarding an underlying abnormality persists, then MRI would be recommended for further study. Dictated by: Dictated on workstation # [id number]
[2019-05-01] MEDS: amLODIPine 10 MG (NORVASC) TAB PO SCH (09:46)
[2019-05-01] MEDS: PANTOPRAZOLE 40 MG (PROTONIX) VIAL IV SCH (09:46)
[2019-05-01] MEDS: meTOprolol TARTRATE 50 MG (LOPRESSOR) TAB PO SCH ×2 (09:46→21:05)
[2019-05-01] MEDS: ENOXAPARIN 40 MG/0.4 ML (LOVENOX) SYR SC SCH (09:46)
[2019-05-01] MEDS: ASPIRIN 81 MG CHEW (CHILDREN'S ASA) PO SCH (09:46)
[2019-05-01] MEDS: lisINopril 20 MG (PRINIVIL) TABLET PO SCH (09:46)
[2019-05-01] MEDS ORDERED: ACETAMINOPHEN 325 MG TABLET PO NR (10:00)
--- NOTE | 2019-05-01 10:23 | Physical Therapy Evaluation ---
PT Evaluation-General Medical Diagnosis Admission Date Apr 28, 2019 at 08:52 Medical Diagnosis: CP/malignant HTN Onset Date: Apr 28, 2019 Therapy Diagnosis Therapy Diagnosis: generalized weakness/debility Height/Weight Height (Feet): 6 Height (Inches): 0 Weight (Pounds): 145 Precautions Precautions/Isolations: Fall Prevention, Standard Precautions Referral Physician: Gisele Reason for Referral: Evaluation/Treatment Medical History Pertinent Medical History: Alcoholism, GERD, Heart Failure, HTN, PVD, Smoking Current History transferred to ICU secondary to AMS and lethargy Reviewed History: Yes Social History Home: Single Level Current Living Status: Spouse PT Steps Inside Home: 2 Prior Prior Level of Function SCALE: Activities may be completed with or without assistive devices. 1-Xvzozlxcqw-iedsgzo completes the activity by him/herself with no assistance from a helper. 5-Set-up or Clean-up Assistance-helper sets up or cleans up; patient completes activity. Wins[place] assists only prior to or following the activity. 4-Supervision or Touching Assistance-helper provides verbal cues and/or touching/steadying and/or contact guard assistance as patient completes activity. Assistance may be provided throughout the activity or intermittently. 3-Partial/Moderate Assistance-helper does LESS THAN HALF the effort. Winslow lifts, holds or supports trunk or limbs, but provides less than half the effort. 2-Substantial/Maximal Assistance-helper does MORE THAN HALF the effort. Winslow lifts or holds trunk or limbs and provides more than half the effort. 5-Fglcklzlc-qryeld does ALL the effort. Patient does none of the effort to complete the activity. Or, the assistance of 2 or more helpers is required for the patient to complete the activity. If activity was not attempted, code reason: 7-Patient Refused. 9-Not Applicable-not attempted and the patient did not perform the activity before the current illness, exacerbation or injury. 10-Not Attempted due to Environmental Limitations-(lack of equipment, weather restraints, etc.). 88-Not Attempted due to Medical Conditions or Safety Concerns. Bed Mobility: 6 Transfers (B,C,W/C): 6 Gait: 6 Stairs: 6 Indoor Mobility (Ambulation): Independent Stairs: Independent Prior Devices Use: None, Walker PT Evaluation-Current Subjective Patient is more alert today, however, very confused. Son present. Patient has c/o right elbow patient on this date. RN is aware. Pain Numeric Pain Scale: 10-Worst Possible Pain Location: Right Location Body Site: Elbow Pain Description: Acute Comment: FLACC (per son, patient fell ~1 wk ago landing on his left elbow) Objective Patient Orientation: Confused Attachments: Cunningham Catheter, IV ROM/Strength ROM Lower Extremities bilateral LE WFL Strength Lower Extremities 3/5 grossly bilaterally (unable to formally test due to confusion and severely diminished motor planning and ability to follow simple direction) Integumentary/Posture Integumentary refer to nursing notes Bladder Incontinence: Cunningham Cath Posture flexed trunk and bilateral knees in stand Neuromuscular (Tone, Coordination, Reflexes) severely diminished coordination, proprioception and gross motor planning Sensory Vision: Wears Glasses Hearing: Functional Hand Dominance: Right Sensation Right Lower Extremit: Impaired Sensation Left Lower Extremity: Impaired Transfers Roll Left to Right (QC): 1 Sit to Lying (QC): 1 Lying to Sitting/Side of Bed(Q: 1 Sit to Stand (QC): 1 Chair/Pce-pk-Rrqwo Xfer(QC): 1 Toilet Transfer: 1 patient unable to use right UE with FWW for sit to stand and SPT bed to commode. Patient requires continuous redirection to remain on task and to complete tasks. PT performed transfer dependently due to patient inability to follow direction. He is very resistive with all mobility. Gait Does the Patient Walk?: No and Walking Goal IS indicated Mode of Locomotion: Walk Anticipated Mode of Locomotion: Walk Balance Sitting Static: Fair Sitting Dynamic: Fair Standing Static: Poor Standing Dynamic: Poor Assessment/Needs 79 y.o. male, will benefit from skilled PT to address functional strength and mobility to improve current LOF. Patient has severe motor planning and proprioception deficits. He is highly confused and unable to follow simple di rection to perform gross motor skills safely without dependent assist. Family present during treatment encouraging patient to participate. Son did voice concern about communication between health care providers and his fathers treatment. SW in to consult with son. Rehab Potential: Guarded PT Mcc Goals Mcc Goals PT Mcc Goals Time Frame: May 17, 2019 Roll Left & Right (QC): 5 Sit to Lying (QC): 5 Lying-Sitting on Side/Bed(QC): 5 Sit to Stand (QC): 5 Chair/Oph-tn-Undvi Xfer(QC): 5 Toilet Transfer (QC): 5 Does the Patient Walk: Yes Walk 10 feet (QC): 5 Walk 50ft with 2 Turns (QC): 5 Walk 150 ft (QC): 5 PT Plan Problem List Problem List: Activity Tolerance, Functional Strength, Safety, Balance, Gait, Transfer, Bed Mobility Treatment/Plan Treatment Plan: Continue Plan of Care Treatment Plan: Bed Mobility, Education, Functional Activity Khalif, Functional Strength, Gait, Safety, Therapeutic Exercise, Transfers Treatment Duration: May 17, 2019 Frequency: 6 times per week Estimated Hrs Per Day: .5 hour per day Patient and/or Family Agrees t: Yes Time/GCodes Time In: 845 Time Out: 855 Total Billed Treatment Time: 10 Total Billed Treatment 1 visit EVModC 10 min SIOBHAN TERRELL PT May 01, 2019 10:23
--- NOTE | 2019-05-01 10:35 | Occ Therapy Progress Note ---
Therapy Progress Note OT attempted to evaluate pt this AM. Nursing present stating she did not think pt would be able to do much at this time. OT will attempt again eval/tx again this afternoon. 1, visit 09:40 ANTHONY OVIEDO OT May 01, 2019 10:35
[2019-05-01 12:00] VITALS: BP 126/68
[2019-05-01 12:01] LABS: BILIRUBIN,URINE NEGATIVE (NEGATIVE); CLARITY,URINE CLEAR; COLOR,URINE YELLOW; GLUCOSE, URINE (UA) NEGATIVE (NEGATIVE); KETONES,URINE TRACE (NEGATIVE); LEUKOCYTE ESTERASE ,URINE NEGATIVE (NEGATIVE); NITRITE,URINE NEGATIVE (NEGATIVE); PH,URINE 7.5 (5-9); PROTEIN,URINE NEGATIVE (NEGATIVE)
[2019-05-01 12:47] LABS: BACTERIA,URINE NEGATIVE /HPF
--- NOTE | 2019-05-01 12:54 | Diagnostic Imaging Report ---
TECHNIQUE: Color Doppler ultrasound of the right upper extremity was performed. REASON FOR EXAM: Right arm pain and swelling. COMPARISON: None FINDINGS: Duplex Doppler, coleman-scale and color-flow imaging of the right upper extremity veins. The deep veins of the right upper extremity (subclavian, jugular, axillary, and brachial veins) show no evidence of intraluminal thrombosis, with normal compressibility, color flow, and augmentation. The radial and ulnar veins appear patent as well. The superficial veins (basilic and cephalic veins) are patent. IMPRESSION: No deep venous thrombosis seen in the right upper extremity veins. Dictated by: Dictated on workstation # [id number]
[2019-05-01] MEDS: VANCOMYCIN 1 GM/NS 250 ML IVPB IV SCH ×2 (13:36)
--- NOTE | 2019-05-01 13:54 | Progress Note - Hospitalist ---
CLARITZA LAYTON, MEDICAL STUDENT 05/01/19 1354: Subjective HPI/CC On Admission Date Seen by Provider: May 01, 2019 Time Seen by Provider: 10:00 CC: Chest pain HPI: This is a 79yoWM who presents with malignant HTN and chest pain. Pt was placed in observation but now requiring Precedex for alcohol withdrawal. Erin arently daughter told us that he stopped smoking and drinking on . He did report that he did have ultrasound done of his legs and significant peripheral vascular disease was diagnosed and stopped drinking and smoking to help with that. He remains with altered mental status due to alcohol withdrawal on Precedex Subjective/Events-last exam Patient is more responsive today, but mental status was fluctuating Received XR on R arm Son is displeased with care and expressed his concerns on rounds to multidisciplinary team including Dr. Jaquez, Dr. Manjarrez and ICU Truss Designer Hospital Course 79yoWM who presents with malignant HTN and chest pain. Pt was placed in observation but required Precedex for alcohol withdrawal. Apparently daughter told us that he stopped smoking and drinking on . He did report that he did have ultrasound done of his legs and significant peripheral vascular disease was diagnosed and stopped drinking and smoking to help with that. He remained with altered mental status due to alcohol withdrawal on Precedex, as the patient became more and more agitated during his hospital stay he became violent and had to be sedated with Risperidone, Ativan and Haldol. Since then he has been sedated and his mental status has been fluctuating. After the patient was sedated the son of the patient became very displeased with the hospital. It was explained to the family multiple times that the patient's altered mental status is more than likely multifactorial due to alcohol withdrawal, delirium, likely underlying vascular dementia and now the sedative meds that were required due to agitation. The son continued to express concern and criticism of the hospital staff despite these explanations from medical students, attending physicians and the nursing specialist. Focused Exam Lactate Level 04/30/19 11:30: Lactic Acid Level 1.37 Objective Exam Vital Signs Vital Signs Date Time Temp Pulse Resp B/P (MAP) Pulse Ox O2 Delivery O2 Flow Rate FiO2 05/01/19 12:18 67 05/01/19 12:08 36.7 05/01/19 12:00 22 126/68 (87) 93 Nasal Cannula 2.00 Capillary Refill : Less Than 3 Seconds General Appearance: Chronically ill HEENT: Pharynx Normal Neck: Full Range of Motion, Non Tender Respiratory: Chest Non Tender, No Accessory Muscle Use, No Respiratory Distress Cardiovascular: Regular Rate, Rhythm, No Murmur Gastrointestinal: Normal Bowel Sounds, Non Tender Rectal: Deferred Extremity: Normal Range of Motion, Other Neurologic/Psychiatric: Aphasia, Disoriented Skin: Ecchymosis Results/Procedures Lab Laboratory Tests 05/01/19 03:36 Patient resulted labs reviewed. Radiology Elbow X-Ray IMPRESSION: 1. There are posttraumatic and degenerative changes involving the elbow joint. There is no acute abnormality identified. 2. If clinical concern regarding an underlying abnormality persists, then MRI would be recommended for further study. Assessment/Plan Assessment and Plan Assess & Plan/Chief Complaint 79 YO M who originally presented with chest pain while he was using the restroom. The pain resolved with a nitro and morphine on the way to the hospital. Of note, the patient also recently quit smoking and drinking after regularly using both for 40+ years. Since his admission the patient has become frequently agitated and required sedation. Starting Vanc + Zosyn for new L Lung Infiltrate found on CXR Altered Mental Status -Head CT shows diffuse leukoencephalopathy, leukoariosis and chronic small vessel ischemia - patient likely has underlying vascular dementia - Delirium - Alcohol Withdrawal - Acute Infection - treating Agitation likely due to mixed picture of Alcohol Withdrawal, Delirium and Vascular Dementia - Patient is at high risk for seizures due to withdrawal - Manage seizures with PRN ativan Appreciate cardiology recs Appreciate Dr. Jaquez's Recs BP Management - Patient's blood pressure spikes according to agitation Supportive management PT/OT Clinical Quality Measures AMI/AHF: ASA po Prior to arrival: Yes DVT/VTE Risk/Contraindication: Risk Factor Score Per Nursin RFS Level Per Nursing on Admit: 3=High SHELLY MANJARREZ DO 05/01/192100: Subjective Subjective/Events-last exam Had a team meet with him while I saw him because his son tends to be very aggressive. Pt a little more alert now. at bedside holding his hand. Holding all sedation and providing supportive care. Labs remain stable. Review of Systems General: Fatigue Neurological: Confusion Objective Exam General Appearance: No Apparent Distress, WD/WN, Chronically ill, Thin Respiratory: Lungs Clear Cardiovascular: Regular Rate, Rhythm Neurologic/Psychiatric: Alert, Disoriented Assessment/Plan Assessment and Plan Assess & Plan/Chief Complaint PNA treatment Supportive care Monitor son's aggressive behavior Diagnosis/Problems Diagnosis/Problems (1) Facility-acquired pneumonia (2) Malignant hypertension Status: Acute (3) Chest pain Status: Acute Qualifiers: Qualified Codes: R07.9 - Chest pain, unspecified (4) Alcohol withdrawal (5) Vascular dementia (6) Delirium (7) PVD (peripheral vascular disease) (8) Claudication (9) Frailty (10) Smoker Supervisory-Addendum Brief Verification & Attestation Participated in pt care: history, MDM, physical Personally performed: exam, history, MDM, supervision of care Care discussed with: Medical Student Procedures: n/a Results interpretation: Verified all documentation Verification and Attestation of Medical Student E/M Service A medical student performed and documented this service in my presence. I reviewed and verified all information documented by the medical student and made modifications to such information, when appropriate. I personally performed the physical exam and medical decision making. Shelly Manjarrez, May 01, 2019,21:01 CLARITZA LAYTON, MEDICAL STUDENT May 01, 2019 13:54 SHELLY MANJARREZ DO May 01, 2019 21:01
--- NOTE | 2019-05-01 14:52 | Occupational Therapy Eval ---
OT Evaluation-General/PLF Medical Diagnosis Admission Date Apr 28, 2019 at 08:52 Medical Diagnosis: CP/malignant HTN Onset Date: Apr 28, 2019 Therapy Diagnosis Therapy Diagnosis: impaired ADLs/functional mobility Height/Weight Height (Feet): 6 Height (Inches): 0 Weight (Pounds): 145 Precautions Precautions/Isolations: Fall Prevention, Standard Precautions Safety Interventions: Bed Exit Alarm, Diversional Activity, Reorient-Attempt, Reorient-PRN Referral Physician: Gisele Referral Reason: Activity Tolerance, Self Care, Evaluation/Treatment, Strengthening/ROM Medical History Pertinent Medical History: Alcoholism, GERD, Heart Failure, HTN, PVD, Smoking Additional Medical History appendectomy, high cholesterol, HTN, PVD, GERD, alcoholism, heart failure Current History Pt was admitted on 04/28/2019 with malignant HTN and chest pain, and he required Precedex for alcohol withdrawal. He transferred to ICU on 04/30/2019 secondary to AMS and lethargy. Social History Home: Single Level Current Living Status: Spouse Steps Inside Home: 2 ADL-Prior Level of Function SCALE: Activities may be completed with or without assistive devices. 0-Zccvretygk-keubdlq completes the activity by him/herself with no assistance from a helper. 5-Set-up or Clean-up Assistance-helper sets up or cleans up; patient completes activity. [place] assists only prior to or following the activity. 4-Supervision or Touching Assistance-helper provides verbal cues and/or touching/steadying and/or contact guard assistance as patient completes activity. Assistance may be provided throughout the activity or intermittently. 3-Partial/Moderate Assistance-helper does LESS THAN HALF the effort. [place] lifts, holds or supports trunk or limbs, but provides less than half the effort. 2-Substantial/Maximal Assistance-helper does MORE THAN HALF the effort. [place] lifts or holds trunk or limbs and provides more than half the effort. 9-Kzqvvexff-ezcudx does ALL the effort. Patient does none of the effort to complete the activity. Or, the assistance of 2 or more helpers is required for the patient to complete the activity. If activity was not attempted, code reason: 7-Patient Refused. 9-Not Applicable-not attempted and the patient did not perform the activity before the current illness, exacerbation or injury. 10-Not Attempted due to Environmental Limitations-(lack of equipment, weather restraints, etc.). 88-Not Attempted due to Medical Conditions or Safety Concerns. ADL PLOF Comments Pt unable to provide information on this date due to lethargy. Based off of previous OT evaluation complete on 04/29/2019, pt reports independence with all ADLs, his agreed he was able to complete bathing and dressing. They have a walkin shower with a shower chair, but stated pt likes to get down into the bathtub and he has difficulty getting out of the tub with decreased leg strength. Pt did not report using an AD for ambulation prior, but his states he has a cane. Self Care: Needed Some Help Functional Cognition: Needed Some Help DME/Equipment: Bath Chair, Shower (walk in with SC), Tub DME/Equipment Comments cane OT Current Status Subjective Pt laying in bed at start of session with x2 family members present. he opened eyes when OT said his name but closed shortly after. He was lethargic throughout session. Pt reported pain in his RUE. Mental Status/Objective Patient Orientation: Confused Attachments: Cunningham Catheter, IV, Telemetry Current Glasses/Contacts: Yes Hearing Aids: No Dentures/Partials: Yes Hand Dominance: Right Upper Extremity ROM Pt unable to follow ROM screen on this date due to lethargy. On last OT eval on 04/29/2019 BUE shoulder flexion was approximately 150 degrees Upper Extremity Coordination unable to assess due to lethargy Upper Extremity Sensation unable to assess due to lethargy, on previous evaluation his family reports he had some tingling in his hands Upper Extremity Strength unable to assess due to lethargy. ADL-Treatment Shower/Bathe Self (QC): 1 (Pt required total assist with sponge bath due to lethargy. He reported pain in RUE as OT washed arm, and he opened his eyes when a damp wash cloth touched his legs.) Other Treatments Pt laying in bed at start of session, he opened his eyes to his name and interacted minimally with OT during session. He was lethargic throughout the session. OT handed pt warm wash cloth and he was able to wipe his face, he then fell asleep. OT handed pt a warm bath pack, but pt did not initiate task, requiring total assist due to lethargy. Pt opened his eyes when a damp wash cloth touched his leg during the sponge bath, and again when OT washed his right arm and he reported pain in his RUE. Post OT session, pt laying in bed with call light in reach and all needs met. Family present. Education OT Patient Education: Correct positioning, Energy conservation, Modified ADL techniques, Progress toward Goal/Update tx plan, Purpose of tx/functional activities Teaching Recipient: Patient, Family Teaching Methods: Demonstration, Discussion Response to Teaching: Reinforcement Needed OT Retirement Goals Soda Clerk Goals Time Frame: May 14, 2019 Eating (QC): 6 Oral Hygiene (QC): 5 Toileting Hygiene (QC): 4 Shower/Bathe Self (QC): 4 Upper Body Dressing (QC): 5 Lower Body Dressing (QC): 4 On/Off Footwear (QC): 4 1=Demonstrate adherence to instructed precautions during ADL tasks. 2=Patient will verbalize/demonstrate understanding of assistive devices/modifications for ADL. 3=Patient will improve strength/tolerance for activity to enable patient to perform ADL's. OT Education/Plan Problem List/Assessment Assessment: Decreased Activ Tolerance, Decreased UE Strength, Impaired Cognition, Impaired Funct Balance, Impaired I ADL's, Impaired Self-Care Skills, Restricted Funct UE ROM Discharge Recommendations Plan/Recommendations: Continue POC Treatment Plan/Plan of Care Patient would benefit from OT for education, treatment and training to promote independence in ADL's, mobility, safety and/or upper extremity function for ADL's. Plan of Care: ADL Retraining, Functional Mobility, UE Funct Exercise/Act Treatment Duration: May 14, 2019 Frequency: 5 times per week Estimated Hrs Per Day: .25 hour per day Rehab Potential: Guarded Time/GCodes Start Time: 14:25 Stop Time: 14:39 Total Time Billed (hr/min): 14 Billed Treatment Time 1, ANTHONY ADKINS OT May 01, 2019 14:52
--- NOTE | 2019-05-01 15:22 | Progress Note - Cardiology ---
Cardiology SOAP Progress Note Subjective: Confused, but less so than yesterday Fam by bedside Does not report any symptoms Objective: I&O/Vital Signs 05/01/19 05/01/19 05/01/19 05/01/19 04:00 07:00 07:06 08:00 Pulse 81 71 75 Resp 35 33 B/P (MAP) Pulse Ox 92 95 93 O2 Delivery Nasal Cannula Room Air Nasal Cannula O2 Flow Rate 2.00 2.00 05/01/19 05/01/19 05/01/19 12:00 12:08 12:18 Temp 36.7 Pulse 61 67 Resp 22 B/P (MAP) 126/68 (87) Pulse Ox 93 O2 Delivery Nasal Cannula O2 Flow Rate 2.00 05/01/19 00:00 Intake Total 0 ml Output Total 525 ml Balance -525 ml Weight (Pounds): 145 Weight (Calculated Kilograms): 65.694977 Constitutional: AAO x 3, well-developed, well-nourished, other (confused, oriented to person and place) Respiratory: No accessory muscle use, No respiratory distress; chest expansion is symmetric, chest is bilaterally symmetric, other (good air entry with prolonged expiratory phase) Cardiovascular: regular rate-rhythm; No JVD; S1 and S2, systolic murmur Gastrointestional: audible bowel sounds Extremities: no lower extremity edema bilateral Neurologic/Psychiatric: No oriented x 3; other (moves all extremities) Skin: No rash on exposed areas, No ulcerations on exposed areas Results/Procedures: Labs Laboratory Tests 05/01/19 03:36: White Blood Count 12.0H, Red Blood Count 6.07H, Hemoglobin 19.1H, Hematocrit 55H , Mean Corpuscular Volume 91, Mean Corpuscular Hemoglobin 32, Mean Corpuscular Hemoglobin Concent 35, Red Cell Distribution Width 14.1, Platelet Count 246, Mean Platelet Volume 11.3H, Neutrophils (%) (Auto) 77H, Lymphocytes (%) (Auto) 11L, Monocytes (%) (Auto) 11, Eosinophils (%) (Auto) 0, Basophils (%) (Auto) 1, Neutrophils # (Auto) 9.2H, Lymphocytes # (Auto) 1.3, Monocytes # (Auto) 1.4H, Eosinophils # (Auto) 0.1, Basophils # (Auto) 0.1, Sodium Level 139, Potassium Level 3.8, Chloride Level 106, Carbon Dioxide Level 20L, Anion Gap 13, Blood Urea Nitrogen 12, Creatinine 1.00, Estimat Glomerular Filtration Rate > 60, BUN/Creatinine Ratio 12, Glucose Level 101, Uric Acid 4.5, Calcium Level 8.8, Phosphorus Level 3.8, Magnesium Level 1.8 05/01/19 08:10: Urine Color YELLOW, Urine Clarity CLEAR, Urine pH 7.5, Urine Specific [place] 1.015L, Urine Protein NEGATIVE, Urine Glucose (UA) NEGATIVE, Urine Ketones TRACEH, Urine Nitrite NEGATIVE, Urine Bilirubin NEGATIVE, Urine Urobilinogen 0.2, Urine Leukocyte Esterase NEGATIVE, Urine RBC (Auto) 1+H, Urine RBC 2-5H, Urine WBC 2-5, Urine Squamous Epithelial Cells NONE, Urine Crystals NONE, Urine Bacteria NEGATIVE, Urine Casts NONE, Urine Mucus NEGATIVE, Urine Culture Indicated NO Microbiology 04/28/19 Blood Culture - Preliminary, Resulted No growth 04/27/19 MRSA Screen - Final, Complete MRSA not isolated A/P: Assessment: Acute confusion of undetermined etiology, managed by Dr Manjarrez Chest discomfort of undetermined etiology, no evidence of ac cor syndrome Severe hypertension of undetermined length of time Echo of 04/28/19: LVEF 55-60%, grade 1 navarro dysfunction, mild MAC, RVSP 15 mmHg Polycythemia and leucocytosis of undetermined etiology, managed by Dr Manjarrez Mildly elevated BNP w/o any distinct clinical evidence of hypertension PAD. Art Duplex of lower ext at [facility] on 04/25/19: extensive calcification in both ext, monophasic bilateral inflow, occlusion of L sup fem, monophasic flow through tout L lower ext (dampened in infrapopliteal region) H/o abdominal aortic aneurysm measuring just under 4 cm maximum size seen at time of lumbar CT of November 2017 H/o ETOH use (whiskey) H/o "removal of growths" to throat per daughter resulting in dysphagia Chronic tobaccoism Prob COPD Plan: * Continue therapy for hypertension * Continue ASA * Proceed with MPI when confusion resolves * I discussed his case with Dr Jaquez on the phone Clinical Quality Measures AMI/AHF: ASA po Prior to arrival: Yes AUBRIE DOMINGUEZ MD FACP [facility] May 01, 2019 15:22
[2019-05-01 16:00] VITALS: BP 139/82
[2019-05-01] MEDS ORDERED: LACTATED RINGERS 1,000 ML IV ONE (17:58)
[2019-05-01] MEDS: LACTATED RINGERS 1,000 ML IV SCH (18:07)
[2019-05-01 20:00] VITALS: BP 157/86
[2019-05-02] VITALS (8 sets, daily range): BP systolic 148–174; BP diastolic 69–92
[2019-05-02] MEDS: VANCOMYCIN 1 GM/NS 250 ML IVPB IV SCH ×4 (01:10→14:45)
[2019-05-02] MEDS: LACTATED RINGERS 1,000 ML IV SCH ×2 (01:10→11:14)
[2019-05-02] MEDS: PIPERACILLIN/TAZOBACTAM (BULK) 4.5 GM in NS (IVPB) 100 ML IV SCH ×3 (02:55→18:00)
[2019-05-02 03:46] LABS: BASOPHILS # (AUTO) 0.1 10^3/uL (0.0-0.1); BASOPHILS % (AUTO) 0 % (0-10); EOSINOPHILS # (AUTO) 0.2 10^3/uL (0.0-0.3); EOSINOPHILS % (AUTO) 2 % (0-10); HEMATOCRIT 55 % (40-54); HEMOGLOBIN 18.5 G/DL (13.3-17.7); LYMPHOCYTES # (AUTO) 1.7 X 10^3 (1.0-4.0); LYMPHOCYTES % (AUTO) 15 % (12-44); MEAN CORPUSCULAR HEMOGLOBIN 31 PG (25-34); MEAN CORPUSCULAR HGB CONC 33 G/DL (32-36); MEAN CORPUSCULAR VOLUME 93 FL (80-99); MEAN PLATELET VOLUME 11.2 FL (7.4-10.4); MONOCYTES # (AUTO) 1.6 X 10^3 (0.0-1.0); MONOCYTES % (AUTO) 14 % (0-12); NEUTROPHILS % (AUTO) 69 % (42-75); PLATELET COUNT 272 10^3/uL (130-400); RED CELL DISTRIBUTION WIDTH 14.3 % (10.0-14.5); WHITE BLOOD COUNT 11.6 10^3/uL (4.3-11.0)
[2019-05-02 04:12] LABS: BUN/CREATININE RATIO 15; CALCIUM 8.8 MG/DL (8.5-10.1); CARBON DIOXIDE 21 MMOL/L (21-32); CHLORIDE 107 MMOL/L (98-107); CREATININE SERUM 1.01 MG/DL (0.60-1.30); GFR ESTIMATED > 60; GLUCOSE 87 MG/DL (70-105); MAGNESIUM 1.7 MG/DL (1.6-2.4); PHOSPHORUS 2.9 MG/DL (2.3-4.7); POTASSIUM 3.7 MMOL/L (3.6-5.0); SODIUM 140 MMOL/L (135-145)
[2019-05-02] MEDS: MAGNESIUM 1 GM/100 ML IVPB 100 ML IV SCH (06:28)
[2019-05-02] MEDS: POTASSIUM CL 10MEQ/50ML IVPB 50 ML IV SCH (06:28)
[2019-05-02] MEDS: KCL 20 MEQ TAB (K-DUR) PO SCH (06:28)
--- NOTE | 2019-05-02 06:53 | Pulmonary Progress Note ---
Subjective Time Seen by a Provider: 06:52 Sepsis Event Evaluation Height, Weight, BMI Height: 6'0" Weight: 145lbs. oz. 65.528224og; 20.00 BMI Method:Stated Focused Exam Lactate Level 04/30/19 11:30: Lactic Acid Level 1.37 Exam Exam Vital Signs Date Time Temp Pulse Resp B/P (MAP) Pulse Ox O2 Delivery O2 Flow Rate FiO2 05/02/19 04:41 36.2 76 18 161/86 (111) 96 Room Air 05/02/19 04:00 69 22 161/86 (111) 97 Room Air 05/02/19 01:00 70 05/02/19 00:30 36.0 74 22 172/92 (118) 94 Room Air 05/01/19 21:00 Room Air 05/01/19 20:00 70 21 157/86 (109) 90 Nasal Cannula 2.00 05/01/19 19:05 36.6 05/01/19 19:00 60 05/01/19 16:00 64 26 139/82 (101) 97 Nasal Cannula 2.00 05/01/19 15:23 36.2 05/01/19 12:18 67 05/01/19 12:08 36.7 05/01/19 12:00 61 22 126/68 (87) 93 Nasal Cannula 2.00 05/01/19 09:00 Room Air 05/01/19 08:00 75 33 93 Nasal Cannula 2.00 05/01/19 07:06 95 Room Air 05/01/19 07:00 71 I & O 05/02/19 07:00 Intake Total 1880 ml Output Total 625 ml Balance 1255 ml Height & Weight Height: 6'0" Weight: 145lbs. oz. 65.313876jm; 20.00 BMI Method:Stated General Appearance: No Apparent Distress, WD/WN, Chronically ill, Thin HEENT: Pharynx Normal Neck: Full Range of Motion, Non Tender Respiratory: Lungs Clear Cardiovascular: Regular Rate, Rhythm Capillary Refill: Less Than 3 Seconds Extremity: Normal Range of Motion, Other Neurologic/Psychiatric: Alert, Disoriented Skin: Ecchymosis Lymphatic: No Adenopathy Results Lab Laboratory Tests 05/01/19 03:36 05/02/19 03:15 Assessment/Plan Assessment/Plan CP -Cardiology is consulted Hx of ETOH dependance -Pt's last drink was last . -CIWA protocol d/c'd yesterday secondary to over sedation. Dementia/agitation -Stop all sedation meds per family's request. -Pt's son stayed with him all night. -Continue sitter -Pt is more awake today. Will get swallow eval this AM Right elbow pain inflammation -Check uric acid -Check dopplers of RUE -Check Xray of right elbow Worsening leukocytosis -Check CXR -Pt is currently on Zosyn and Vanco -Check UA -Cultures are negative thus far Deconditioning -PT/OT PVD -ASA -Dr. Diaz is managing Tobacco use -Education MAITE POWERS DO May 02, 2019 06:53
[2019-05-02] MEDS: PANTOPRAZOLE 40 MG (PROTONIX) VIAL IV SCH (09:31)
[2019-05-02] MEDS: lisINopril 20 MG (PRINIVIL) TABLET PO SCH (09:31)
[2019-05-02] MEDS: meTOprolol TARTRATE 50 MG (LOPRESSOR) TAB PO SCH ×2 (09:31→19:44)
[2019-05-02] MEDS: amLODIPine 10 MG (NORVASC) TAB PO SCH (09:31)
[2019-05-02] MEDS: ENOXAPARIN 40 MG/0.4 ML (LOVENOX) SYR SC SCH (09:31)
[2019-05-02] MEDS: ASPIRIN 81 MG CHEW (CHILDREN'S ASA) PO SCH (09:31)
--- NOTE | 2019-05-02 10:14 | Physical Therapy Daily Note ---
PT Daily Note-Current Subjective Patient is more alert and able to follow direction on this date. Family present. Pain Numeric Pain Scale: 0-No Pain Location: No Pain Reported Mental Status Patient Orientation: Confused Attachments: Cunningham Catheter, IV Transfers SCALE: Activities may be completed with or without assistive devices. 9-Rajqmbkmpd-jllzomr completes the activity by him/herself with no assistance from a helper. 5-Set-up or Clean-up Assistance-helper sets up or cleans up; patient completes activity. [place] assists only prior to or following the activity. 4-Supervision or Touching Assistance-helper provides verbal cues and/or touching/steadying and/or contact guard assistance as patient completes activity. Assistance may be provided throughout the activity or intermittently. 3-Partial/Moderate Assistance-helper does LESS THAN HALF the effort. [place] lifts, holds or supports trunk or limbs, but provides less than half the effort. 2-Substantial/Maximal Assistance-helper does MORE THAN HALF the effort. [place] lifts or holds trunk or limbs and provides more than half the effort. 0-Yfgvbqbft-leewxk does ALL the effort. Patient does none of the effort to complete the activity. Or, the assistance of 2 or more helpers is required for the patient to complete the activity. If activity was not attempted, code reason: 7-Patient Refused. 9-Not Applicable-not attempted and the patient did not perform the activity before the current illness, exacerbation or injury. 10-Not Attempted due to Environmental Limitations-(lack of equipment, weather restraints, etc.). 88-Not Attempted due to Medical Conditions or Safety Concerns. Roll Left & Right (QC): 3 Sit to Lying (QC): 3 Lying to Sitting/Side of Bed(Q: 3 Sit to Stand (QC): 3 Chair/Geo-ri-Rfsml Xfer(QC): 3 Gait Training Does the Patient Walk?: Yes Distance: 150' Walk 10 feet (QC): 3 Walk 50 ft with 2 Turns(QC): 3 Walk 150 ft (QC): 3 Gait Assistive Device: FWW PT assist for FWW advancement and body placement in FWW Assessment Patient required encouragement to participate with PT, however, is much improved on this date. Patient continues to be limited with functional strength and mobility with improve motor planning. PT Wood Stock Blank Handler Goals Wood Stock Blank Handler Goals PT [place] Blank Handler Goals Time Frame: May 17, 2019 Roll Left & Right (QC): 5 Sit to Lying (QC): 5 Lying-Sitting on Side/Bed(QC): 5 Sit to Stand (QC): 5 Chair/Amm-uc-Kqefd Xfer(QC): 5 Toilet Transfer (QC): 5 Does the Patient Walk: Yes Walk 10 feet (QC): 5 Walk 50ft with 2 Turns (QC): 5 Walk 150 ft (QC): 5 PT Plan Treatment/Plan Treatment Plan: Continue Plan of Care Treatment Plan: Bed Mobility, Education, Functional Activity [place], Functional Strength, Gait, Safety, Therapeutic Exercise, Transfers Treatment Duration: May 17, 2019 Frequency: 6 times per week Estimated Hrs Per Day: .5 hour per day Patient and/or Family Agrees t: Yes Time/GCodes Time In: 926 Time Out: 941 Total Billed Treatment Time: 15 Total Billed Treatment 1 visit GT 15 min SIOBHAN TERRELL PT May 02, 2019 10:14
--- NOTE | 2019-05-02 10:27 | Progress Note - Cardiology ---
Cardiology SOAP Progress Note Subjective: No cp or palp or syncope or shortness of breath Does not report any symptoms Objective: I&O/Vital Signs 05/02/19 05/02/19 05/02/19 05/02/19 00:30 01:00 04:00 04:41 Temp 36.0 36.2 Pulse 74 70 69 76 Resp 22 22 18 B/P (MAP) 172/92 (118) 161/86 (111) 161/86 (111) Pulse Ox 94 97 96 O2 Delivery Room Air Room Air Room Air 05/02/19 05/02/19 05/02/19 07:00 07:07 08:00 Temp 36.9 Pulse 74 66 Resp 22 O2 Delivery Room Air 05/02/19 00:00 Intake Total 1430 ml Output Total 375 ml Balance 1055 ml Weight (Pounds): 145 Weight (Calculated Kilograms): 65.084410 Constitutional: well-developed, well-nourished, other (appears oriented to time, person, and place today, but still appears confused at times) Respiratory: No accessory muscle use, No respiratory distress; chest expansion is symmetric, chest is bilaterally symmetric, other (good air entry with prolonged expiratory phase) Cardiovascular: regular rate-rhythm; No JVD; S1 and S2, systolic murmur Gastrointestional: No tender; soft, audible bowel sounds Extremities: no lower extremity edema bilateral Neurologic/Psychiatric: other (moves all extremities) Skin: No rash on exposed areas, No ulcerations on exposed areas Results/Procedures: Labs Laboratory Tests 05/02/19 03:15: White Blood Count 11.6H, Red Blood Count 5.98H, Hemoglobin 18.5H, Hematocrit 55H , Mean Corpuscular Volume 93, Mean Corpuscular Hemoglobin 31, Mean Corpuscular Hemoglobin Concent 33, Red Cell Distribution Width 14.3, Platelet Count 272, Mean Platelet Volume 11.2H, Neutrophils (%) (Auto) 69, Lymphocytes (%) (Auto) 15, Monocytes (%) (Auto) 14H, Eosinophils (%) (Auto) 2, Basophils (%) (Auto) 0, Neutrophils # (Auto) 8.0H, Lymphocytes # (Auto) 1.7, Monocytes # (Auto) 1.6H, Eosinophils # (Auto) 0.2, Basophils # (Auto) 0.1, Sodium Level 140, Potassium Level 3.7, Chloride Level 107, Carbon Dioxide Level 21, Anion Gap 12, Blood Urea Nitrogen 15, Creatinine 1.01, Estimat Glomerular Filtration Rate > 60, BUN/Creatinine Ratio 15, Glucose Level 87, Calcium Level 8.8, Phosphorus Level 2.9, Magnesium Level 1.7 Microbiology 04/28/19 Blood Culture - Preliminary, Resulted No growth 04/27/19 MRSA Screen - Final, Complete MRSA not isolated Laboratory Tests 05/01/19 03:36 05/02/19 03:15 A/P: Assessment: Confusion, improved from yesterday, managed by the Med Svce Chest discomfort of undetermined etiology at presentation, no recurrence, no evidence of ac cor syndrome Severe hypertension of undetermined length of time Echo of 04/28/19: LVEF 55-60%, grade 1 navarro dysfunction, mild MAC, RVSP 15 mmHg Polycythemia and leucocytosis of undetermined etiology, managed by the Med Svce Mildly elevated BNP w/o any distinct clinical evidence of hypertension PAD. Art Duplex of lower ext at [facility] on 04/25/19: extensive calcification in both ext, monophasic bilateral inflow, occlusion of L sup fem, monophasic flow through tout L lower ext (dampened in infrapopliteal region) H/o abdominal aortic aneurysm measuring just under 4 cm maximum size seen at time of lumbar CT of November 2017 H/o ETOH use (whiskey) H/o "removal of growths" to throat per daughter resulting in dysphagia Chronic tobaccoism Prob COPD Plan: * Continue therapy for hypertension * Continue ASA * I discussed his case with Dr Jaquze on the phone yesterday * I discussed his case [facility] today * Seems reasonable to d/c to home and do cardiac w/u as outpatient, given no evidence of ACS, and given his confusion that is probably related to his hospitalization and meds given for treatment of agitation and restlessness Clinical Quality Measures AMI/AHF: ASA po Prior to arrival: Yes AUBRIE DOMINGUEZ MD FACP FAC CCDS May 02, 2019 10:27
[2019-05-02] MEDS ORDERED: TROUGH ORDER-PHARMACY XX NR (11:00)
--- NOTE | 2019-05-02 11:24 | Progress Note - Hospitalist ---
CLARITZA LAYTON, MEDICAL STUDENT 05/02/19 1124: Subjective HPI/CC On Admission Date Seen by Provider: May 02, 2019 Time Seen by Provider: 08:30 CC: Chest pain HPI: This is a 79yoWM who presents with malignant HTN and chest pain. Pt was placed in observation but now requiring Precedex for alcohol withdrawal. Erin arently daughter told us that he stopped smoking and drinking on . He did report that he did have ultrasound done of his legs and significant peripheral vascular disease was diagnosed and stopped drinking and smoking to help with that. He remains with altered mental status due to alcohol withdrawal on Precedex Subjective/Events-last exam Patient is awake much more oriented today than he has been his entire admission. Able to hold conversation and moving all extremities but needs assistance to walk Slept well overnight Patient's family is at bedside and agree that the patient would do better at home with familiar surroundings Saw patient with Dr. Diaz, said he has no problem performing stress test outpatient Hospital Course 79yoWM who presents with malignant HTN and chest pain. Pt was placed in observation but required Precedex for alcohol withdrawal. Apparently daughter told us that he stopped smoking and drinking on . He did report that he did have ultrasound done of his legs and significant peripheral vascular disease was diagnosed and stopped drinking and smoking to help with that. He remained with altered mental status due to alcohol withdrawal on Precedex, as the patient became more and more agitated during his hospital stay he became violent and had to be sedated with Risperidone, Ativan and Haldol. Since then he has been sedated and his mental status has been fluctuating. After the patient was sedated the son of the patient became very displeased with the hospital. It was explained to the family multiple times that the patient's altered mental status is more than likely multifactorial due to alcohol withdrawal, delirium, likely underlying vascular dementia and now the sedative meds that were required due to agitation. The son continued to express concern and criticism of the hospital staff despite these explanations from medical students, attending physicians and the skilled nursing case manager. On 05/02 became more oriented and is able to hold a conversation. Providers and family agree the patient would do better, in terms of mental status, at home in familiar surroundings. Patient will see heme/onc prior to discharge for erythrocytosis. Focused Exam Lactate Level 04/30/19 11:30: Lactic Acid Level 1.37 Objective Exam Vital Signs Vital Signs Date Time Temp Pulse Resp B/P (MAP) Pulse Ox O2 Delivery O2 Flow Rate FiO2 05/02/19 08:00 66 22 Room Air 05/02/19 07:07 36.9 05/02/19 04:41 161/86 (111) 96 05/01/19 20:00 2.00 Capillary Refill : Less Than 3 Seconds General Appearance: Mild Distress, Thin HEENT: PERRL/EOMI, Pharynx Normal, Moist Mucous Membranes Neck: Full Range of Motion, Non Tender Respiratory: Chest Non Tender, No Accessory Muscle Use, Crackles Cardiovascular: Regular Rate, Rhythm, No JVD, No Murmur Gastrointestinal: Normal Bowel Sounds, No Pulsatile Mass, Non Tender, Soft Rectal: Deferred Extremity: Normal Inspection, Normal Range of Motion, Other Neurologic/Psychiatric: Alert, No Motor/Sensory Deficits, Normal Mood/Affect, facility practice specialist II-XII Norm as Tested Skin: Normal Color, Warm/Dry, Ecchymosis Results/Procedures Lab Laboratory Tests 05/02/19 03:15 Patient resulted labs reviewed. Radiology Elbow X-Ray IMPRESSION: 1. There are posttraumatic and degenerative changes involving the elbow joint. There is no acute abnormality identified. 2. If clinical concern regarding an underlying abnormality persists, then MRI would be recommended for further study. Assessment/Plan Assessment and Plan Assess & Plan/Chief Complaint 79 YO M who originally presented with chest pain while he was using the restroom. The pain resolved with a nitro and morphine on the way to the hospital. Of note, the patient also recently quit smoking and drinking after regularly using both for 40+ years. Since his admission the patient has become frequently agitated and required sedation. Today the patient is much more oriented and is able to maintain conversation. Family and providers agree the patient would fare better at home and are planning for discharge soon. Home planning - DC Cunningham - Move to floor - PT/OT L Lung Infiltrate found on CXR - Vancomysin + Zosyn 4.5 g - Last day 05/05 for both antibiotics Altered Mental Status - Head CT shows diffuse leukoencephalopathy, leukoariosis and chronic small vessel ischemia - patient likely has underlying vascular dementia - Delirium - Planning to get patient home as soon as possible - Alcohol Withdrawal - PRN Ativan, but patient's mental status is improving and is not having seizures - Acute Infection - treating Agitation likely due to mixed picture of Alcohol Withdrawal, Delirium and Vascular Dementia - Patient is at high risk for seizures due to withdrawal, but has not had any to date - Manage seizures with PRN ativan - give judiciously as patient's mental status has finally improved Appreciate cardiology recs - Dr. Diaz has given approval for performing stress test outpatient Appreciate Dr. Jaquez's Recs BP Management - Patient's blood pressure spikes according to agitation - Continue Blood pressure control - Amlodipine 10 mg, Lisinopril 20 mg, PRN Hydralazine Erythrocytosis - Heme/Onc consulted Supportive management Clinical Quality Measures AMI/AHF: ASA po Prior to arrival: Yes DVT/VTE Risk/Contraindication: Risk Factor Score Per Nursin RFS Level Per Nursing on Admit: 3=High GRIS BERMUDEZ MD 05/02/19 1313: Supervisory-Addendum Brief Verification & Attestation Participated in pt care: history, physical Personally performed: exam Care discussed with: Medical Student Procedures: n/a I saw the patient with the students and reviewed the history and performed the physical exam with the family present. CLARITZA LAYTON, MEDICAL STUDENT May 02, 2019 11:24 GRIS BERMUDEZ MD May 02, 2019 13:13
--- NOTE | 2019-05-02 12:04 | Occupational Ther Daily Note ---
OT Current Status-Daily Note Subjective Pt resting in bed with family present. Pt agreeable to bed level activity. Reports mild pain in right elbow, but does not rate. ADL-Treatment Therapy Code Descriptions/Definitions Functional [place] Measure: 0=Not Assessed/NA 4=Minimal Assistance 1=Total Assistance 5=Supervision or Setup 2=Maximal Assistance 6=Modified [place] 3=Moderate Assistance 7=Complete IndependenceSCALE: Activities may be completed with or without assistive devices. 7-Jiqiqjedsc-wtsacnq completes the activity by him/herself with no assistance from a helper. 5-Set-up or Clean-up Assistance-helper sets up or cleans up; patient completes activity. [place] assists only prior to or following the activity. 4-Supervision or Touching Assistance-helper provides verbal cues and/or touching/steadying and/or contact guard assistance as patient completes activity. Assistance may be provided throughout the activity or intermittently. 3-Partial/Moderate Assistance-helper does LESS THAN HALF the effort. [place] lifts, holds or supports trunk or limbs, but provides less than half the effort. 2-Substantial/Maximal Assistance-helper does MORE THAN HALF the effort. [place] lifts or holds trunk or limbs and provides more than half the effort. 8-Bvweqntyq-rfdowm does ALL the effort. Patient does none of the effort to complete the activity. Or, the assistance of 2 or more helpers is required for the patient to complete the activity. If activity was not attempted, code reason: 7-Patient Refused. 9-Not Applicable-not attempted and the patient did not perform the activity before the current illness, exacerbation or injury. 10-Not Attempted due to Environmental Limitations-(lack of equipment, weather restraints, etc.). 88-Not Attempted due to Medical Conditions or Safety Concerns. Other Treatment Pt keeps eyes closed throughout much of treatment, but answers questions and follow commands. Pt performed A/AROM of left shoulder, elbow, and bilateral wrist with verbal cues to attend to task. Pt then states "that's enough" and declined to complete further activity. Pt denies needs. Pt resting in bed with needs met and family present after session. OT Metal Checker Goals Metal Checker Goals Time Frame: May 14, 2019 Eating (QC): 6 Oral Hygiene (QC): 5 Toileting Hygiene (QC): 4 Shower/Bathe Self (QC): 4 Upper Body Dressing (QC): 5 Lower Body Dressing (QC): 4 On/Off Footwear (QC): 4 1=Demonstrate adherence to instructed precautions during ADL tasks. 2=Patient will verbalize/demonstrate understanding of assistive devices/modifications for ADL. 3=Patient will improve strength/tolerance for activity to enable patient to perform ADL's. OT Education/Plan Discharge Recommendations Plan/Recommendations: Continue POC Treatment Plan/Plan of Care Patient would benefit from OT for education, treatment and training to promote independence in ADL's, mobility, safety and/or upper extremity function for ADL's. Plan of Care: ADL Retraining, Functional Mobility, UE Funct Exercise/Act Treatment Duration: May 14, 2019 Frequency: 5 times per week Estimated Hrs Per Day: .25 hour per day Rehab Potential: Guarded Time/GCodes Start Time: 11:40 Stop Time: 11:50 Total Time Billed (hr/min): 10 Billed Treatment Time 1 visit, EX(10minutes) JAXON KNIGHT OT May 02, 2019 12:04
--- NOTE | 2019-05-02 15:29 | NUR ---
"RD ASSESSMENT PMHx: HTN; ETOH withdrawals; hypercholesterolemia; GERD PT INTERACTION: Pt was awake during nutrition assessment. Note pt has AMS and family present at bedside to provide diet hx. states pt's current appetite is not good, but he is normally a good eater at home. states pt follows a regular diet at home and has some difficulty chewing tougher pieces of meat. states pt has no recent issues with n/v/c/d at this time. Note last BM was 04/29 and pt not currently on bowel regimen per chart review. states no recent wt changes. Note unable to determine recent wt hx, per chart review. ABNORMAL NUTRITION-RELATED LAB VALUES Lab values WNL at this time Est. kcal needs: 9719-0030 kcal | 25-30 kcal/kg Est. Pro needs: 78-94 g Pro | 1.0-1.2 g Pro/kg PES STATEMENT: Inadequate oral intake (NI-2.1) related to loss of appetite | AMS as evidenced by pt (family) interview | avg PO intake <25% meals INTERVENTION: Continue with current diet order of Regular diet. Add Ensure Enlive (vary) to meals TID, for increased kcal intake. Provides 350 kcal and 13 g Pro per serving. Would recommend checking current thiamine levels as ETOH can affect thiamine absorption. Replete if necessary. Will continue to follow and reassess as pt needs and status change. MONITOR/EVALUATE: PO Intake; Plan of Care; Hydration Status; Weight Status; Lab Values Ivis Mayers, MS, RD, LD"
--- NOTE | 2019-05-02 17:16 | Consultation ---
History of Present Illness History of Present Illness Patient Consulted On(ishaan/time) 05/02/19 17:11 Date Seen by Provider: May 02, 2019 Time Seen by Provider: 17:12 History of Present Illness Mr. Mcmahon is a 79 yo male with h/o PVD, tobaccoism was admitted on 04/28/19 after presenting to the ED for chest pain. He was found to have malignant hypertension and pneumonia. His hospitalization is complicated by severe mental status changes from multiple different sources. Even today, patient is slurring speech and occasionally confused. On admission, patient was noted to have a mild fluctuating leukocytosis and persistent erythrocytosis. His hgb has ranged from 18.2 to 19.8. Patient's family reports he does not have issues with snoring, early wakefulness or apnea. He does smoke 1ppd and works in his garage often with a wood stove. He uses natural gas heating and occasionally has a leak. He denies using exogenous epo or testosterone. Allergies and Home Medications Allergies Coded Allergies: No Known Drug Allergies (Unverified , 11/27/17) Home Medications Ibuprofen 200 Mg Capsule, 200 MG PO DAILY, (Reported) Patient Home Medication List Home Medication List Reviewed: Yes Past Apdhelv-Ndlghp-Ljvacd Hx Past Med/Social Hx: Reviewed Nursing Past Med/Soc Hx, Reviewed and Corrections made Patient Social History Alcohol Use: Regular Use Alcohol Beverage of Choice: Beer Recreational Drug Use: No Smoking Status: Current Everyday Smoker Type Used: Cigarettes 2nd Hand Smoke Exposure: Yes Recent Foreign Travel: No Contact w/Someone Who Travel: No Recent Infectious Disease Expo: No Recent Hopitalizations: No Physical Abuse: No Sexual Abuse: No Mistreated: No Fear: No Seasonal Allergies Seasonal Allergies: No Past Medical History Surgeries: Yes (EGD/ESOPHAGEAL DILATION) Appendectomy Respiratory: No Cardiac: No High Cholesterol, Hypertension, Peripheral Vascular Neurological: No Genitourinary: No Gastrointestinal: Yes (ESOPHAGEAL STRICTURE) Gastroesophageal Reflux Musculoskeletal: No Endocrine: No HEENT: No Cancer: No Psychosocial: No Integumentary: No Blood Disorders: No Review of Systems-General ROS-Unable to Obtain: most ROS obtained through family Constitutional: no symptoms reported EENTM: no symptoms reported Respiratory: no symptoms reported Cardiovascular: no symptoms reported Gastrointestinal: no symptoms reported Genitourinary: no symptoms reported Musculoskeletal: no symptoms reported Psychiatric/Neurological: Other (slurring speech, confusion, agitation) Physical Exam-General Problems Physical Exam Vital Signs Vital Signs - First Documented 04/27/19 20:10 Temp 36.7 Pulse 75 Resp 18 B/P (MAP) 195/112 (139) Pulse Ox 95 O2 Delivery Room Air O2 Flow Rate 2.0 Capillary Refill : Less Than 3 Seconds General Appearance: WD/WN, no apparent distress Eyes: Bilateral Eye Normal Inspection HEENT: normal ENT inspection Neck: full range of motion Respiratory: chest non-tender, no respiratory distress, no accessory muscle use, crackles Cardiovascular: regular rate, rhythm, no edema, no murmur Gastrointestinal: normal bowel sounds, non tender, soft Extremities: normal inspection Neurologic/Psychiatric: no motor/sensory deficits, alert, normal mood/affect, aphasia, other (disoriented to situation and time) Skin: warm/dry, other (ruborous) Lymphatic: no adenopathy Assessment/Plan Assessment/Plan Admission Diagnosis/Plan 79 yo male with PVD was admitted with malignant hypertension and pneumonia and developed delirious agitation during the hospitalization. He was found to have intermittent leukocytosis and persistent polycythemia. I will order a JAK2, BCR-ABL1, serum epo level and serum carboxyhemoglobin. [facility] up after discharge. Clinical Quality Measures AMI/AHF: ASA po Prior to arrival: Yes DVT/VTE Risk/Contraindication: Risk Factor Score Per Nursin RFS Level Per Nursing on Admit: 3=High KRUNAL CHRISTIAN MD May 02, 2019 17:16
[2019-05-03] MEDS: PIPERACILLIN/TAZOBACTAM (BULK) 4.5 GM in NS (IVPB) 100 ML IV SCH ×2 (02:30→10:20)
[2019-05-03 03:25] VITALS: BP 163/62
[2019-05-03 05:04] LABS: ABSOLUTE RETIC # 29 10e9/L (24-90); BASOPHILS # (AUTO) 0.1 10^3/uL (0.0-0.1); BASOPHILS % (AUTO) 1 % (0-10); EOSINOPHILS # (AUTO) 0.5 10^3/uL (0.0-0.3); EOSINOPHILS % (AUTO) 5 % (0-10); HEMATOCRIT 52 % (40-54); HEMOGLOBIN 17.9 G/DL (13.3-17.7); LYMPHOCYTES # (AUTO) 1.6 X 10^3 (1.0-4.0); LYMPHOCYTES % (AUTO) 16 % (12-44); MEAN CORPUSCULAR HEMOGLOBIN 32 PG (25-34); MEAN CORPUSCULAR HGB CONC 34 G/DL (32-36); MEAN CORPUSCULAR VOLUME 92 FL (80-99); MEAN PLATELET VOLUME 11.6 FL (7.4-10.4); MONOCYTES # (AUTO) 1.2 X 10^3 (0.0-1.0); MONOCYTES % (AUTO) 12 % (0-12); NEUTROPHILS # (AUTO) 6.5 X 10^3 (1.8-7.8); NEUTROPHILS % (AUTO) 66 % (42-75); PLATELET COUNT 304 10^3/uL (130-400); RED CELL DISTRIBUTION WIDTH 13.7 % (10.0-14.5); RETICULOCYTE % 0.51 % (0.50-2.40); WHITE BLOOD COUNT 9.9 10^3/uL (4.3-11.0)
[2019-05-03 05:22] LABS: BUN/CREATININE RATIO 18; CALCIUM 8.9 MG/DL (8.5-10.1); CARBON DIOXIDE 18 MMOL/L (21-32); CHLORIDE 107 MMOL/L (98-107); CREATININE SERUM 0.88 MG/DL (0.60-1.30); GFR ESTIMATED > 60; GLUCOSE 82 MG/DL (70-105); POTASSIUM 3.4 MMOL/L (3.6-5.0); SODIUM 139 MMOL/L (135-145)
[2019-05-03 06:28] LABS: EOSINOPHILS % (MANUAL) 5 %; LYMPHOCYTES % (MANUAL) 17 %; MONOCYTES % (MANUAL) 10 %; NEUTROPHILS % (MANUAL) 68 %
[2019-05-03 08:00] VITALS: BP 174/79
[2019-05-03] MEDS ORDERED: IBUPROFEN TABLET 200 MG TAB PO SCH (08:00)
[2019-05-03] MEDS: meTOprolol TARTRATE 50 MG (LOPRESSOR) TAB PO SCH (08:13)
[2019-05-03] MEDS: lisINopril 20 MG (PRINIVIL) TABLET PO SCH (08:14)
[2019-05-03] MEDS: amLODIPine 10 MG (NORVASC) TAB PO SCH (08:14)
[2019-05-03] MEDS: PANTOPRAZOLE 40 MG (PROTONIX) VIAL IV SCH (08:14)
[2019-05-03] MEDS: ASPIRIN 81 MG CHEW (CHILDREN'S ASA) PO SCH (08:14)
[2019-05-03] MEDS: ENOXAPARIN 40 MG/0.4 ML (LOVENOX) SYR SC SCH (08:14)
[2019-05-03] MEDS ORDERED: NON-FORMULARY MEDICATION 1 EA EA (Ibuprofen (Advil) 200 MG) PO SCH (09:00)
[2019-05-03] MEDS ORDERED: TROUGH ORDER-PHARMACY XX NR (11:00)
--- NOTE | 2019-05-03 11:29 | Physical Therapy Daily Note ---
PT Daily Note-Current Subjective Pt in bed, agreeable. Denied pain. Mental Status Patient Orientation: Person, Place Transfers SCALE: Activities may be completed with or without assistive devices. 8-Snoproscqx-pmdetit completes the activity by him/herself with no assistance from a helper. 5-Set-up or Clean-up Assistance-helper sets up or cleans up; patient completes activity. [place] assists only prior to or following the activity. 4-Supervision or Touching Assistance-helper provides verbal cues and/or touching/steadying and/or contact guard assistance as patient completes activity. Assistance may be provided throughout the activity or intermittently. 3-Partial/Moderate Assistance-helper does LESS THAN HALF the effort. [place] lifts, holds or supports trunk or limbs, but provides less than half the effort. 2-Substantial/Maximal Assistance-helper does MORE THAN HALF the effort. [place] lifts or holds trunk or limbs and provides more than half the effort. 8-Qpwznzjlw-zkrkjy does ALL the effort. Patient does none of the effort to complete the activity. Or, the assistance of 2 or more helpers is required for the patient to complete the activity. If activity was not attempted, code reason: 7-Patient Refused. 9-Not Applicable-not attempted and the patient did not perform the activity before the current illness, exacerbation or injury. 10-Not Attempted due to Environmental Limitations-(lack of equipment, weather restraints, etc.). 88-Not Attempted due to Medical Conditions or Safety Concerns. Roll Left & Right (QC): 5 Sit to Lying (QC): 4 Lying to Sitting/Side of Bed(Q: 5 Sit to Stand (QC): 4 Toilet Transfer (QC): 4 Weight Bearing Right Lower Extremity: Right Full Weight Bearing Left Lower Extremity: Left Full Weight Bearing Gait Training Does the Patient Walk?: Yes Distance: 150 Walk 10 feet (QC): 4 Walk 50 ft with 2 Turns(QC): 4 Walk 150 ft (QC): 4 Gait Persons Needed: 1 Gait Assistive Device: FWW Pt ambulates with flexed posture, CGA. Frequent VCS for safe use of FWW especially when entering bathroom, turning around bed. Pt tends to attempt to abandon walker or move feet beyond base of walker, corrected with VCS. No eric LOB. Wheelchair Training Does the Pt Use a Wheelchair?: No Treatments Gait training with FWW. Toilet transfer with CGA for safety, VCS for sequencing. Returned to bed with rails up, family present in room, needs met. Assessment Current Status: Good Progress Pt tolerated well. Improved safety with gait, improved balance. PT Group Home Goals Event Planning Manager Goals PT Group Home Goals Time Frame: May 17, 2019 Roll Left & Right (QC): 5 Sit to Lying (QC): 5 Lying-Sitting on Side/Bed(QC): 5 Sit to Stand (QC): 5 Chair/Xle-nx-Enwgg Xfer(QC): 5 Toilet Transfer (QC): 5 Does the Patient Walk: Yes Walk 10 feet (QC): 5 Walk 50ft with 2 Turns (QC): 5 Walk 150 ft (QC): 5 PT Plan Problem List Problem List: Activity Tolerance, Functional Strength, Safety, Balance, Gait, Transfer, Bed Mobility Treatment/Plan Treatment Plan: Continue Plan of Care Treatment Plan: Bed Mobility, Education, Functional Activity [place], Functional Strength, Gait, Safety, Therapeutic Exercise, Transfers Treatment Duration: May 17, 2019 Frequency: 6 times per week Estimated Hrs Per Day: .5 hour per day Patient and/or Family Agrees t: Yes Time/GCodes Time In: 0957 Time Out: 1025 Total Billed Treatment Time: 28 Total Billed Treatment 1, GT x 28' ARSALAN BUSTAMANTE DPChaya May 03, 2019 11:29
[2019-05-03] MEDS ORDERED: ASPI-999 PO (13:21)
[2019-05-03] MEDS ORDERED: AMLO10TA7 PO (13:21)
[2019-05-03] MEDS ORDERED: NITR0.4T42 SL (13:21)
[2019-05-03] MEDS ORDERED: ATOR40TA70 PO (13:21)
[2019-05-03] MEDS ORDERED: LISI-552 PO (13:21)
[2019-05-03] MEDS ORDERED: TMSL.4C PO (13:21)
[2019-05-03] MEDS ORDERED: METO50TA15 PO (13:21)
--- NOTE | 2019-05-03 13:32 | Cardiology Progress Note ---
Subjective Date Seen by Provider: May 03, 2019 Time Seen by Provider: 13:30 Subjective/Events-last exam Patient was sitting in bed comfortable, reported that he choked on some food earlier but feeling better at this time. Review of Systems General: No Chills, No Night Sweats, No Fatigue, No Malaise, No Appetite, No Other HEENT: No Head Aches, No Visual Changes, No Eye Pain, No Ear Pain, No Dysphasia, No Sinus Congestion, No Post Nasal Drip, No Sore Throat, No Other Pulmonary: No Dyspnea, No Cough, No Pleuritic Chest Pain, No Other Cardiovascular: No: Chest Pain, Palpitations, Orthopnea, Paroxysmal Noc. Dyspnea, Edema, Lt Headedness, Other Objective-Cardiology Exam Last Set of Vital Signs Vital Signs 05/03/19 05/03/19 05/03/19 03:25 08:00 09:00 Temp 36.7 Pulse 58 Resp 16 B/P (MAP) 174/79 (110) Pulse Ox 93 O2 Delivery Room Air O2 Flow Rate 14.00 30.00 Capillary Refill : Less Than 3 SecondsLess Than 3 Seconds I&O Intake and Output 05/03/19 00:00 Intake Total 2680 ml Output Total 760 ml Balance 1920 ml Intake Oral 900 ml IV Total 1780 ml Output Urine Total 760 ml # Voids 3 # Bowel Movements 1 General: Alert, Oriented X3, Cooperative HEENT: Atraumatic, PERRLA Neck: Supple, No JVD, No Thyromegaly Lungs: Clear to Auscultation, Normal Air Movement Heart: Regular Rate, Normal S1, Normal S2, No Murmurs Abdomen: Normal Bowel Sounds, Soft, No Tenderness, No Hepatosplenomegaly, No Masses Extremities: No Clubbing, No Cyanosis, No Edema, Normal Pulses, No Tenderness/Swelling Skin: No Rashes, No Breakdown, No Significant Lesion Neuro: Normal Gait, Normal Speech, Strength at 5/5 X4 Ext, Normal Tone, Sensation Intact Psych/Mental Status: Mental Status NL, Mood NL Results Lab Laboratory Tests 05/03/19 04:50 A/P-Cardiology Admission Diagnosis Chest pain Hypertension Abdominal aortic aneurysm Assessment/Plan Chest pain nonspecific etiology, reporting improvement. Continue to monitor. Severe hypertension, history of abdominal aortic aneurysm, maintained on amlodipine, metoprolol and lisinopril. Add hydralazine and evaluate tolerance and response Echo of 04/28/19: LVEF 55-60%, grade 1 navarro dysfunction, mild MAC, RVSP 15 mmHg Mildly elevated BNP w/o any distinct clinical evidence of hypertension PAD. Art Duplex of lower ext at [facility] on 04/25/19: extensive calcification in both ext, monophasic bilateral inflow, occlusion of L sup fem, monophasic flow through tout L lower ext (dampened in infrapopliteal region) H/o abdominal aortic aneurysm measuring just under 4 cm maximum size seen at time of lumbar CT of November 2017 H/o ETOH use (whiskey) H/o "removal of growths" to throat per daughter resulting in dysphagia Chronic tobaccoism Prob COPD Clinical Quality Measures AMI/AHF: ASA po Prior to arrival: Yes DVT/VTE Risk/Contraindication: Risk Factor Score Per Nursin RFS Level Per Nursing on Admit: 3=High MELYSSA PIERCE MD May 03, 2019 13:32
[2019-05-03 13:33] VITALS: BP 174/79
[2019-05-03] MEDS ORDERED: hydrALAZINE (APRESOLINE) 25 MG TAB PO SCH (14:00)
--- NOTE | 2019-05-03 16:36 | NUR ---
PATIENT'S CALLED [facility] IN [place] NOT OPEN. THIS NURSE CALLED THEM INTO [facility] AFTER SPEAKING WITH .
== END 2019-05-03 14:26 | disposition home or self-care (01) | DRG 896 ==
LOC: EDUNIT# 20:10 → ER 20:12 → ICU 20:39 → OBSVTOIN 04-28 08:52 → ICU 04-28 10:15 → 4TH 04-29 11:34 → ICU 04-30 13:30 → 4TH 05-02 15:00
PROVIDERS: ADMIT Internal Medicine; ATTEND Internal Medicine
DX: F10.232 Alcohol dependence with withdrawal with perceptual disturbance (principal); I11.0 Hypertensive heart disease with heart failure; J18.9 Pneumonia, unspecified organism; F01.51 Vascular dementia, unspecified severity, with behavioral disturbance; R41.0 Disorientation, unspecified; I50.9 Heart failure, unspecified; R07.9 Chest pain, unspecified; R45.1 Restlessness and agitation; R06.81 Apnea, not elsewhere classified; D75.1 Secondary polycythemia; D72.829 Elevated white blood cell count, unspecified; J44.9 Chronic obstructive pulmonary disease, unspecified; I71.4 Abdominal aortic aneurysm, without rupture; K21.9 Gastro-esophageal reflux disease without esophagitis; R13.10 Dysphagia, unspecified; I73.9 Peripheral vascular disease, unspecified; M54.9 Dorsalgia, unspecified; R53.1 Weakness; M19.021 Primary osteoarthritis, right elbow; F17.210 Nicotine dependence, cigarettes, uncomplicated; E78.00 Pure hypercholesterolemia, unspecified
CPT/HCPCS: 36415; 36600; 70450; 71045; 71275; 73080; 80048; 80053; 80061; 80202; 80320; 81000; 81270; 82375; 82668; 82728; 82805; 82962; 83540; 83605; 83735; 83874; 83880; 84100; 84443; 84484; 84550; 85007; 85025; 85027; 85045; 85379; 85610; 85730; 87040; 87081; 88377; 93005; 93041; 93306; 94660; 94760; 96374; 96375; G0378

== ENCOUNTER → 2019-08-09 | Outpatient (CLI) | payer MEDICARE ==
[~2019-08-09] MED LIST changes: +AMLO10TA7 PO; +ASPI-999 PO; +ATOR40TA70 PO; +IBUP200C11 PO; +LISI-552 PO; +METO50TA15 PO; +NITR0.4T42 SL; +TMSL.4C PO
[2019-08-09 07:32] LABS: BILIRUBIN,URINE NEGATIVE (NEGATIVE); CLARITY,URINE CLOUDY; COLOR,URINE YELLOW; GLUCOSE, URINE (UA) NEGATIVE (NEGATIVE); KETONES,URINE TRACE (NEGATIVE); LEUKOCYTE ESTERASE ,URINE NEGATIVE (NEGATIVE); NITRITE,URINE NEGATIVE (NEGATIVE); PROTEIN,URINE TRACE (NEGATIVE)
[2019-08-09 07:42] LABS: AMORPHOUS SEDIMENT,UR FEW AMOR URATES /LPF; BACTERIA,URINE FEW /HPF; RBC,URINE RARE /HPF; SQUAMOUS EPITHELIAL CELL,UR 0-2 /HPF; WBC,URINE 0-2 /HPF
== END ==
LOC: LABNPT 07:26
PROVIDERS: ATTEND Nurse Practitioner
DX: D72.829 Elevated white blood cell count, unspecified (principal)
CPT/HCPCS: 81000; 87077; 87088

== ENCOUNTER → 2019-09-01 | Outpatient (CLI) | payer MEDICARE ==
[2019-09-01 16:23] LABS: COLOR,URINE YELLOW
[2019-09-01 16:24] LABS: BACTERIA,URINE NEGATIVE /HPF; BILIRUBIN,URINE NEGATIVE (NEGATIVE); CLARITY,URINE CLEAR; GLUCOSE, URINE (UA) NEGATIVE (NEGATIVE); KETONES,URINE NEGATIVE (NEGATIVE); LEUKOCYTE ESTERASE ,URINE NEGATIVE (NEGATIVE); NITRITE,URINE NEGATIVE (NEGATIVE); PH,URINE 7.5 (5-9); PROTEIN,URINE NEGATIVE (NEGATIVE); SQUAMOUS EPITHELIAL CELL,UR RARE /HPF; WBC,URINE 0-2 /HPF
== END ==
LOC: LAB FS 16:09
PROVIDERS: ATTEND Family Medicine
DX: N18.9 Chronic kidney disease, unspecified (principal)
CPT/HCPCS: 81000

== ENCOUNTER 2019-10-30 13:03 | Emergency (ER) | payer MEDICARE, OTHER ==
[~2019-10-30] VITALS: Ht 177 cm; Wt 100.0 kg
[2019-10-30 13:25] LABS: HEMATOCRIT 32 % (40-54); HEMOGLOBIN 10.4 G/DL (13.3-17.7); MEAN CORPUSCULAR HEMOGLOBIN 31 PG (25-34); MEAN CORPUSCULAR VOLUME 93 FL (80-99); WHITE BLOOD COUNT 11.1 10^3/uL (4.3-11.0)
[2019-10-30 13:26] LABS: BASOPHILS # (AUTO) 0.1 10^3/uL (0.0-0.1); BASOPHILS % (AUTO) 1 % (0-10); EOSINOPHILS # (AUTO) 0.9 10^3/uL (0.0-0.3); EOSINOPHILS % (AUTO) 8 % (0-10); LYMPHOCYTES # (AUTO) 2.5 X 10^3 (1.0-4.0); LYMPHOCYTES % (AUTO) 23 % (12-44); MEAN CORPUSCULAR HGB CONC 33 G/DL (32-36); MEAN PLATELET VOLUME 10.7 FL (7.4-10.4); MONOCYTES # (AUTO) 0.9 X 10^3 (0.0-1.0); MONOCYTES % (AUTO) 8 % (0-12); NEUTROPHILS # (AUTO) 6.8 X 10^3 (1.8-7.8); NEUTROPHILS % (AUTO) 61 % (42-75); PLATELET COUNT 381 10^3/uL (130-400); RED CELL DISTRIBUTION WIDTH 13.2 % (10.0-14.5)
--- NOTE | 2019-10-30 13:37 | ED General ---
General Chief Complaint: Neuro-Stroke Like Symptoms Stated Complaint: HYPERTENSION Nursing Triage Note: PER FAMILY FOR THE PAST 24-48 HOURS THE PT HAS DECLINED IN MENTAL STAUS AND PHYSICAL WEAKNESS. Nursing Sepsis Screen: No Definite Risk Source of Information: Patient, EMS, Family History of Present Illness Date Seen by Provider: Oct 30, 2019 Time Seen by Provider: 13:03 Initial Comments 79-year-old male presenting by EMS with complaints of altered mental status that has worsened in the last 1-2 days. He recently had vascular surgery for his legs and [facility] and has had weakness in his legs and been incontinent since then. He is using a wheelchair at home but has been helping family with transfers. In the last 24-48 hours he's been decreasing in strength as well as mental status and not been as interactive helpful. Overnight he gotten worse and family removed the fentanyl patch this morning thinking that might be contributing to his symptoms. However he was still having a lot of problems this afternoon so they called EMS. Allergies and Home Medications Allergies Coded Allergies: No Known Drug Allergies (Unverified , 11/27/17) Home Medications Amlodipine Besylate 10 Mg Tablet, 10 MG PO DAILY Prescribed by: GRIS BERMUDEZ on 05/03/19 1321 Aspirin 81 Mg Tab.chew, 81 MG PO DAILY@0900 Prescribed by: GRIS BERMUDEZ on 05/03/19 132 Atorvastatin Calcium 40 Mg Tablet, 40 MG PO DAILY Prescribed by: GRIS BERMUDEZ on 05/03/19 1321 Ibuprofen 200 Mg Capsule, 200 MG PO DAILY, (Reported) Lisinopril 20 Mg Tablet, 20 MG PO DAILY Prescribed by: GRIS BERMUDEZ on 05/03/19 132 Metoprolol Tartrate 50 Mg Tablet, 50 MG PO BID Prescribed by: GRIS BERMUDEZ on 05/03/19 132 Nitroglycerin 0.4 Mg Tab.subl, 0.4 MG SL UD PRN for CHEST PAIN (ANGINA) Prescribed by: GRIS BERMUDZE on 05/03/19 132 Tamsulosin HCl 0.4 Mg Cap, 0.4 MG PO DAILY Prescribed by: GRIS BERMUDEZ on 05/03/19 132 Patient Home Medication List Home Medication List Reviewed: Yes Review of Systems Review of Systems Constitutional: No fever EENTM: no symptoms reported Respiratory: No cough Cardiovascular: No chest pain Gastrointestinal: No nausea, No vomiting Genitourinary: decreased output Musculoskeletal: muscle weakness (bilateral leg weakness) Skin: no symptoms reported Psychiatric/Neurological: See HPI Hematologic/Lymphatic: Easy Bleeding, Easy Bruising, Other (bruises to abdominal wall) Immunological/Allergic: no symptoms reported Past Lyezams-Dwcoss-Dvcwlt Hx Past Med/Social Hx: Reviewed Nursing Past Med/Soc Hx Patient Social History Alcohol Use: Denies Use Number of Drinks Today: AA Alcohol Beverage of Choice: Beer Recreational Drug Use: No Smoking Status: Current Everyday Smoker Type Used: Cigarettes 2nd Hand Smoke Exposure: Yes Recent Foreign Travel: No Contact w/Someone Who Travel: No Recent Infectious Disease Expo: No Recent Hopitalizations: No Physical Abuse: No Sexual Abuse: No Mistreated: No Fear: No Seasonal Allergies Seasonal Allergies: No Past Medical History Surgeries: Yes (EGD/ESOPHAGEAL DILATION) Appendectomy, Vascular Surgery Respiratory: No Cardiac: No High Cholesterol, Hypertension, Peripheral Vascular Neurological: Yes Stroke Genitourinary: No Gastrointestinal: Yes (ESOPHAGEAL STRICTURE) Gastroesophageal Reflux Musculoskeletal: No Endocrine: No HEENT: No Cancer: No Psychosocial: No Integumentary: No Blood Disorders: No Physical Exam Vital Signs Vital Signs - First Documented 10/30/19 13:23 Temp 36.8 Pulse 66 Resp 18 B/P (MAP) 156/88 (110) Pulse Ox 98 O2 Delivery Room Air Capillary Refill : Less Than 3 Seconds Height, Weight, BMI Height: 6'0" Weight: 145lbs. oz. 65.463397ml; 31.00 BMI Method:Stated General Appearance: No Apparent Distress HEENT: PERRL/EOMI, Pharynx Normal Neck: Non Tender, Supple Respiratory: Chest Non Tender, Lungs Clear, Normal Breath Sounds Cardiovascular: Regular Rate, Rhythm, Normal Peripheral Pulses Gastrointestinal: Normal Bowel Sounds, No Pulsatile Mass, Non Tender, Soft Extremity: Non Tender, Pedal Edema (1+ BLE) Neurologic/Psychiatric: Motor Weakness (BLE) Skin: Warm/Dry, Ecchymosis (lower abdominal wall left side) Progress/Results/Core Measures Suspected Sepsis Recent Fever Within 48 Hours: No Infection Criteria Present: None New/Unexplained Altered Menta: No Sepsis Screen: No Definite Risk SIRS Temperature: Pulse: 66 Respiratory Rate: 18 Laboratory Tests 10/30/19 13:10: White Blood Count 11.1H Blood Pressure 156 /88 Mean: 110 Laboratory Tests 8/13/20 13:10: Creatinine 2.67H, INR Comment 0.9, Platelet Count 381, Total Bilirubin 0.3 Results/Orders Lab Results Laboratory Tests Test 10/30/19 13:10 10/30/19 13:49 10/30/19 14:20 Range/Units White Blood Count 11.1 H 4.3-11.0 10^3/uL Red Blood Count 3.40 L 4.35-5.85 10^6/uL Hemoglobin 10.4 L 13.3-17.7 G/DL Hematocrit 32 L 40-54 % Mean Corpuscular Volume 93 80-99 FL Mean Corpuscular Hemoglobin 31 25-34 PG Mean Corpuscular Hemoglobin Concent 33 32-36 G/DL Red Cell Distribution Width 13.2 10.0-14.5 % Platelet Count 381 130-400 10^3/uL Mean Platelet Volume 10.7 H 7.4-10.4 FL Neutrophils (%) (Auto) 61 42-75 % Lymphocytes (%) (Auto) 23 12-44 % Monocytes (%) (Auto) 8 0-12 % Eosinophils (%) (Auto) 8 0-10 % Basophils (%) (Auto) 1 0-10 % Neutrophils # (Auto) 6.8 1.8-7.8 X 10^3 Lymphocytes # (Auto) 2.5 1.0-4.0 X 10^3 Monocytes # (Auto) 0.9 0.0-1.0 X 10^3 Eosinophils # (Auto) 0.9 H 0.0-0.3 10^3/uL Basophils # (Auto) 0.1 0.0-0.1 10^3/uL Prothrombin Time 12.6 12.2-14.7 SEC INR Comment 0.9 0.8-1.4 Activated Partial Thromboplast Time 22 L 24-35 SEC Sodium Level 138 135-145 MMOL/L Potassium Level 4.5 3.6-5.0 MMOL/L Chloride Level 104 98-107 MMOL/L Carbon Dioxide Level 24 21-32 MMOL/L Anion Gap 10 5-14 MMOL/L Blood Urea Nitrogen 43 H 7-18 MG/DL Creatinine 2.67 H 0.60-1.30 MG/DL Estimat Glomerular Filtration Rate 23 BUN/Creatinine Ratio 16 Glucose Level 108 H 70-105 MG/DL Calcium Level 9.3 8.5-10.1 MG/DL Corrected Calcium 9.5 8.5-10.1 MG/DL Total Bilirubin 0.3 0.1-1.0 MG/DL Aspartate Amino Transf (AST/SGOT) 21 5-34 U/L Alanine Aminotransferase (ALT/SGPT) 20 0-55 U/L Alkaline Phosphatase 57 40-136 U/L Troponin I < 0.30 <0.30 NG/ML Total Protein 6.5 6.4-8.2 GM/DL Albumin 3.8 3.2-4.5 GM/DL Serum Alcohol < 10 <10 MG/DL Glucometer 107 70-110 MG/DL Urine Color YELLOW Urine Clarity CLEAR Urine pH 6.0 5-9 Urine Specific [place] 1.010 L 1.016-1.022 Urine Protein NEGATIVE NEGATIVE Urine Glucose (UA) NEGATIVE NEGATIVE Urine Ketones NEGATIVE NEGATIVE Urine Nitrite NEGATIVE NEGATIVE Urine Bilirubin NEGATIVE NEGATIVE Urine Urobilinogen 0.2 < = 1.0 MG/DL Urine Leukocyte Esterase NEGATIVE NEGATIVE Urine RBC (Auto) NEGATIVE NEGATIVE Urine RBC NONE /HPF Urine WBC RARE /HPF Urine Squamous Epithelial Cells RARE /HPF Urine Crystals NONE /LPF Urine Calcium Oxalate Crystals /LPF Urine Bacteria NEGATIVE /HPF Urine Casts NONE /LPF Urine Mucus NEGATIVE /LPF Urine Culture Indicated NO Urine Opiates Screen NEGATIVE NEGATIVE Urine Oxycodone Screen NEGATIVE NEGATIVE Urine Methadone Screen NEGATIVE NEGATIVE Urine Propoxyphene Screen NEGATIVE NEGATIVE Urine Barbiturates Screen NEGATIVE NEGATIVE Ur Tricyclic Antidepressants Screen NEGATIVE NEGATIVE Urine Phencyclidine Screen NEGATIVE NEGATIVE Urine Amphetamines Screen NEGATIVE NEGATIVE Urine Methamphetamines Screen NEGATIVE NEGATIVE Urine Benzodiazepines Screen NEGATIVE NEGATIVE Urine Cocaine Screen NEGATIVE NEGATIVE Urine Cannabinoids Screen NEGATIVE NEGATIVE My Orders Orders - DAILY OLSEN MD Cbc With Automated Diff (10/30/19 13:14) Protime With Inr (10/30/19 13:14) Partial Thromboplastin Time (10/30/19 13:14) Comprehensive Metabolic Panel (10/30/19 13:14) Troponin I Fs (10/30/19 13:14) Ua Culture If Indicated (10/30/19 13:14) Chest 1 View Ap/Pa Only (10/30/19 13:14) Ekg Tracing (10/30/19 13:14) Nothing By Mouth (10/30/19 Lunch) Accucheck Stat ONCE (10/30/19 13:14) Ed Iv/Invasive Line Start (10/30/19 13:14) Vital Signs Stroke Patient Q15M (10/30/19 13:14) Ct Head Wo-R/O Stroke (10/30/19 13:14) O2 (10/30/19 13:14) Intake & Output 06,14,22 (10/30/19 13:14) Monitor-Rhythm Ecg Trace Only (10/30/19 13:14) Dysphagia Screening Tool (10/30/19 13:14) Drug Screen Stat (Urine) (10/30/19 13:14) Alcohol (10/30/19 13:14) Ct Abdomen/Pelvis Wo (10/30/19 13:14) Ns (Ivpb) (Sodium C... W/Nicardipine Iv (10/30/19 15:08) Nicardipine Iv For Drip (Cardene I.V. (O (10/30/19 15:10) Ns (Ivpb) (Sodium Chloride 0.9%) (10/30/19 15:10) Vital Signs/I&O 10/30/19 10/30/19 10/30/19 13:23 15:22 15:55 Temp 36.8 36.5 Pulse 66 72 Resp 18 18 B/P (MAP) 156/88 (110) 188/82 164/84 Pulse Ox 98 99 O2 Delivery Room Air Capillary Refill : Less Than 3 Seconds Blood Pressure Mean: 110 Progress Note #1: Progress Note send pt to CT for head scan and scan abdomen/pelvis as well since he has bruising to abdominal wall. check labs, ECG and CXR. Check urine for drug screen as well as looking for signs of infection. Progress Note #2: Time: 13:[address] scan shows 4 mm intraparenchymal hemorrhage of left posterior parietal lobe without shift or mass effect. He has no elevation of his coags. Chemistry also shows he has elevated BUN and Cr to go with some acute kidney injury. In April he had a Cr of 1 but now it is 2.67. With elevated BUN of 43 this might be dehydration but he may also have something causing acute renal failure. Will place best catheter to monitor urine output. No acute findings on CT abd/pelvis to indicate obstruction or explain renal failure. Family requests that he be transferred to [facility] so at 1405 and a call was placed to [facility] transfer center and spoke with Dr. Sheikh. However they were on stroke diversion and due to the intraparenchymal hemorrhage discounted as a stroke. Upon checking with the family they were agreeable to an [facility] facility such as [facility] which would be the next closest facility with neurosurgery and stroke capabilities. And 1430 call was placed to the [facility] transfer center and spoke with Cyndi KHAN and gave her the information for the patient. At 1448 She auto accepted the patient for [facility] on behalf of the hospitalist service there. ECG Initial ECG Impression Date: Oct 30, 2019 Initial ECG Impression Time: 13:42 Initial ECG Rate: 72 Initial ECG Rhythm: Normal Sinus Initial ECG Comparisson: Unchanged Comment Sinus arrhythmia with heart rate of 72 bpm. NH interval 162 ms. There is a left anterior fascicular block and nonspecific T-wave wave abnormalities especially in the lateral leads. QT interval 416 ms with a QTc interval 456 ms. This appears similar to prior tracings in the system. Diagnostic Imaging Diagonstic Imaging: CT Plain Films/CT/US/NM/MRI: head Comments NAME: SOULEYMANE DAUGHERTY MED REC#: [id number] PT STATUS: REG ER : 1940 PHYSICIAN: DAILY OLSEN MD ADMIT DATE: 10/30/19/ER FS Draft Date of Exam:10/30/19 CT HEAD WO-R/O STROKE PROCEDURE: CT head wo r/o stroke. TECHNIQUE: Multiple contiguous axial images were obtained through the brain without the use of intravenous contrast. Auto Exposure Controls were utilized during the CT exam to meet ALARA standards for radiation dose reduction. INDICATION: Slurred speech. Correlation is made with prior head CT from 04/30/2019. FINDINGS: Ventricles and sulci are prominent consistent with cerebral atrophy. There is marked periventricular hypodensity noted consistent with senescent change and chronic microvascular ischemia. No sulcal effacement or midline shift is identified. There is a small focus of hyperdensity in the high left parietal lobe white matter measuring 4 mm. This was not present on prior head CT and most consistent with a small area of parenchymal hemorrhage. No extra-axial hemorrhage is detected. Cisterns are patent. Visualized paranasal sinuses demonstrate some mild mucosal thickening involving ethmoid air cells on the right. IMPRESSION: Cerebral atrophy and chronic changes. There is a tiny approximately 4 mm acute intraparenchymal hemorrhage in the left posterior parietal lobe white matter. No other area of acute hemorrhage is identified. There is no mass effect or midline shift. Dictated on workstation # [id number] Dict: 10/30/19 1341 Trans: 10/30/19 1351 [id number] Interpreted by: LUCAS BLUE MD Electronically signed by: Diagonstic Imaging: CT Plain Films/CT/US/NM/MRI: abdomen, pelvis Comments NAME: SOULEYMANE DAUGHERTY MED REC#: [id number] PT STATUS: REG ER : 1940 PHYSICIAN: DAILY OLSEN MD ADMIT DATE: 10/30/19/ER FS Draft Date of Exam:10/30/19 CT ABDOMEN/PELVIS WO PROCEDURE: CT abdomen and pelvis without contrast. TECHNIQUE: Multiple contiguous axial images were obtained through the abdomen and pelvis without the use of intravenous contrast. Auto Exposure Controls were utilized during the CT exam to meet ALARA standards for radiation dose reduction. INDICATION: Hypertension and bruising to the abdomen. COMPARISON: No prior studies are available for comparison. FINDINGS: The lung bases are clear. Tiny low density in the dome of the right lobe of the liver is noted, too small to characterize but perhaps small cysts. No other liver lesions are seen. Gallbladder is unremarkable. No biliary duct dilatation is seen. The pancreas and spleen are unremarkable apart from multiple splenic granulomas. No adrenal mass is detected. There are several punctate calcifications within both kidneys which may represent nonobstructing calculi. There also appear to be some cortical calcifications present. The infrarenal abdominal aorta is aneurysmal measuring 3.8 cm. This terminates above the bifurcation. No retroperitoneal hemorrhage is detected. The small and large bowel loops are normal caliber. There is no obstruction. There is diverticulosis of the sigmoid but no evidence of acute diverticulitis. No free fluid or fluid collection is seen. The bladder is unremarkable. Prostate is unremarkable. Compression fracture deformity involving L1 vertebral body is noted with slight retropulsion. Vertebral body is near vertebra plana. This may be chronic. No paraspinous hematoma is present at this level. There is spondylolisthesis with bilateral pars defects at L5-S1. IMPRESSION: 1. Bilateral nonobstructing nephrolithiasis. 2. Infrarenal abdominal aortic aneurysm measuring 3.8 cm AP diameter. No retroperitoneal hemorrhage is detected. 3. Uncomplicated diverticulosis. No acute features detected. Dictated on workstation # [id number] Dict: 10/30/19 1346 Trans: 10/30/19 1353 [facility] [id number] Interpreted by: LUCAS BLUE MD Electronically signed by: Mary Imaging: Xray Plain Films/CT/US/NM/MRI: chest Comments [facility]. [place], [place] NAME: SOULEYMANE DAUGHERTY MED REC#: [id number] PT STATUS: REG ER : 1940 PHYSICIAN: DAILY OLSEN MD ADMIT DATE: 10/30/19/ER FS Draft Date of Exam:10/30/19 CHEST 1 VIEW AP/PA ONLY INDICATION: Hypertension and slurred speech. Time of exam 1:39 PM Comparison is made with prior chest from 05/01/2019. The heart size is normal. The pulmonary vascularity is unremarkable. The lungs are clear. No infiltrate, effusion or pneumothorax is detected. Impression: No acute cardiopulmonary process is detected. Dictated on workstation # [id number] Dict: 10/30/19 1345 Trans: 10/30/19 1348 [facility] [id number] Interpreted by: LUCAS BLUE MD Electronically signed by: Critical Care Note Critical Care Total Time (minutes) 60 minutes Progress Patient was at risk of eminent potential morbidity or mortality from his neurological, cardiovascular and renal systems. I spent 60 minutes in direct care of the patient. Time was spent in obtaining history from the patient and family and medical records, ordering tests and reviewing results, ordering labs and reviewing results, ordering imaging and reviewing results, discussion with consultants, discussion with family and patient, ordering interventions and monitoring response, and documentation in the chart. Departure Impression Primary Impression: Intraparenchymal hemorrhage of brain Additional Impressions: Acute renal failure Qualified Codes: N17.9 - Acute kidney failure, unspecified Hypertension Qualified Codes: I10 - Essential (primary) hypertension Disposition: T-TRM HOSP Condition: Critical Transfer Transfer Reason: Exceeds level of care Time Spoke to Accepting Phy: 14:48 Transfer Progress Notes 1448 D/w Cyndi RN, at [facility] transfer center and she auto accepted pt on behalf of hospitalist at [facility]. 1504 [facility] transfer center called back and Dr. Jung will be the accepting physician and the pt will go to the ICU. They would like him to be on a cardene drip and try to keep his pressure close to 140 systolic. will call back with a bed assignment shortly and I advised that I was planning on sending him by Helicopter. Transfer Facility: [facility] Method of Transfer: Air Departure-Patient Inst. Referrals: SELF,SIRISHA MATHUR (PCP/Family) Primary Care Physician DAILY OLSEN MD Oct 30, 2019 13:37
[2019-10-30 13:43] LABS: BUN/CREATININE RATIO 16; CARBON DIOXIDE 24 MMOL/L (21-32); CHLORIDE 104 MMOL/L (98-107); CREATININE SERUM 2.67 MG/DL (0.60-1.30); GFR ESTIMATED 23; POTASSIUM 4.5 MMOL/L (3.6-5.0); SODIUM 138 MMOL/L (135-145)
[2019-10-30 13:44] LABS: ALANINE AMINOTRANSFERASE 20 U/L (0-55); ALBUMIN 3.8 GM/DL (3.2-4.5); ALKALINE PHOSPHATASE 57 U/L (40-136); BILIRUBIN,TOTAL 0.3 MG/DL (0.1-1.0); CALCIUM 9.3 MG/DL (8.5-10.1); GLUCOSE 108 MG/DL (70-105); TOTAL PROTEIN 6.5 GM/DL (6.4-8.2)
--- NOTE | 2019-10-30 13:48 | Diagnostic Imaging Report ---
INDICATION: Hypertension and slurred speech. Time of exam 1:39 PM Comparison is made with prior chest from 05/01/2019. The heart size is normal. The pulmonary vascularity is unremarkable. The lungs are clear. No infiltrate, effusion or pneumothorax is detected. Impression: No acute cardiopulmonary process is detected. Dictated by: Dictated on workstation # [id number]
[2019-10-30 13:51] LABS: INR 0.9 (0.8-1.4); PROTHROMBIN TIME PATIENT 12.6 SEC (12.2-14.7)
--- NOTE | 2019-10-30 13:51 | Diagnostic Imaging Report ---
PROCEDURE: CT head wo r/o stroke. TECHNIQUE: Multiple contiguous axial images were obtained through the brain without the use of intravenous contrast. Auto Exposure Controls were utilized during the CT exam to meet ALARA standards for radiation dose reduction. INDICATION: Slurred speech. Correlation is made with prior head CT from 04/30/2019. FINDINGS: Ventricles and sulci are prominent consistent with cerebral atrophy. There is marked periventricular hypodensity noted consistent with senescent change and chronic microvascular ischemia. No sulcal effacement or midline shift is identified. There is a small focus of hyperdensity in the high left parietal lobe white matter measuring 4 mm. This was not present on prior head CT and most consistent with a small area of parenchymal hemorrhage. No extra-axial hemorrhage is detected. Cisterns are patent. Visualized paranasal sinuses demonstrate some mild mucosal thickening involving ethmoid air cells on the right. IMPRESSION: Cerebral atrophy and chronic changes. There is a tiny approximately 4 mm acute intraparenchymal hemorrhage in the left posterior parietal lobe white matter. No other area of acute hemorrhage is identified. There is no mass effect or midline shift. Dictated by: Dictated on workstation # [id number]
--- OUTSIDE RECORDS SUMMARY | 2019-10-30 13:52 | XMS REPORT | Continuity of Care Document ---
Author Organization Unknown Address Unknown Phone Unavailable Allergies Active Description Code Type Severity Reaction Onset Reported/Identified Relationship to Patient Clinical Status Yes No Known Drug Allergies [id number] Drug Allergy Unknown N/A 11/27/2017 Medications There is no data. Problems Date Dx Coded Attending Type Code Diagnosis Diagnosed By 11/27/2017 MIGUEL LYNN DO Ot F10.10 ALCOHOL ABUSE, UNCOMPLICATED 11/27/2017 JARVIS LYNN DOA K Ot F17.210 NICOTINE DEPENDENCE, CIGARETTES, UNCOMPL 11/27/2017 JARVIS LYNN DOA K Ot I71.4 ABDOMINAL AORTIC ANEURYSM, WITHOUT RUPTU 11/27/2017 JARVIS LYNN DOA K Ot K21.9 GASTRO-ESOPHAGEAL REFLUX DISEASE WITHOUT 11/27/2017 JARVIS LYNN DOA K Ot M25.552 PAIN IN LEFT HIP 11/27/2017 SHANE COLEMAN MIGUEL K Ot M51.36 OTHER INTERVERTEBRAL DISC DEGENERATION, 11/27/2017 JARVIS LYNN DOA K Ot M53.3 SACROCOCCYGEAL DISORDERS, NOT ELSEWHERE 11/27/2017 SHANE COLEMAN MIGUEL K Ot Z87.19 PERSONAL HISTORY OF OTHER DISEASES OF TH 04/30/2019 EDGAR COLEMAN BOYD Ot D72.82 9 ELEVATED WHITE BLOOD CELL COUNT, UNSPECI 04/30/2019 EDGAR COLEMAN BOYD Ot D75.1 SECONDARY POLYCYTHEMIA 04/30/2019 EDGAR COLEMAN BOYD Ot E78.00 PURE HYPERCHOLESTEROLEMIA, UNSPECIFIED 04/30/2019 EDGAR COLEMAN BOYD Ot 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 04/30/2019 EDGAR COLEMAN BOYD Ot F17.21 0 NICOTINE DEPENDENCE, CIGARETTES, UNCOMPL 04/30/2019 EDGAR COLEMAN BOYD Ot I11.0 HYPERTENSIVE HEART DISEASE WITH HEART FA 04/30/2019 EDGAR COLEMAN BOYD Ot I50.9 HEART FAILURE, UNSPECIFIED 04/30/2019 EDGAR COLEMAN BOYD Ot I71.4 ABDOMINAL AORTIC ANEURYSM, WITHOUT RUPTU 04/30/2019 HERNÁNDEZ DO, BOYD Ot I73.9 PERIPHERAL VASCULAR DISEASE, UNSPECIFIED 04/30/2019 HERNÁNDEZ DO, BOYD Ot J44.9 CHRONIC OBSTRUCTIVE PULMONARY DISEASE, U 04/30/2019 HERNÁNDEZ DO, BOYD Ot K21.9 GASTRO-ESOPHAGEAL REFLUX DISEASE WITHOUT 04/30/2019 HERNÁNDEZ DO, BOYD Ot M25.50 PAIN IN UNSPECIFIED JOINT 04/30/2019 HERNÁNDEZ DO, BOYD Ot M54.9 DORSALGIA, UNSPECIFIED 04/30/2019 HERNÁNDEZ DO, BOYD Ot R06.81 APNEA, NOT ELSEWHERE CLASSIFIED 04/30/2019 HERNÁNDEZ DO, BOYD Ot R07.9 CHEST PAIN, UNSPECIFIED 04/30/2019 HERNÁNDEZ DO, BOYD Ot R13.10 DYSPHAGIA, UNSPECIFIED 04/30/2019 HERNÁNDEZ DO, BOYD Ot R45.1 RESTLESSNESS AND AGITATION 04/30/2019 HERNÁNDEZ DO, BOYD Ot R53.1 WEAKNESS 05/01/2019 HERNÁNDEZ DO, BOYD Ot D72.82 9 ELEVATED WHITE BLOOD CELL COUNT, UNSPECI 05/01/2019 HERNÁNDEZ DO, BOYD Ot D75.1 SECONDARY POLYCYTHEMIA 05/01/2019 HERNÁNDEZ DO, BOYD Ot E78.00 PURE HYPERCHOLESTEROLEMIA, UNSPECIFIED 05/01/2019 HERNÁNDEZ DO, BOYD Ot 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 05/01/2019 HERNÁNDEZ DO, BOYD Ot F17.21 0 NICOTINE DEPENDENCE, CIGARETTES, UNCOMPL 05/01/2019 HERNÁNDEZ DO, BOYD Ot I11.0 HYPERTENSIVE HEART DISEASE WITH HEART FA 05/01/2019 HERNÁNDEZ DO, BOYD Ot I50.9 HEART FAILURE, UNSPECIFIED 05/01/2019 HERNÁNDEZ DO, BOYD Ot I71.4 ABDOMINAL AORTIC ANEURYSM, WITHOUT RUPTU 05/01/2019 HERNÁNDEZ DO, BOYD Ot I73.9 PERIPHERAL VASCULAR DISEASE, UNSPECIFIED 05/01/2019 HERNÁNDEZ DO, BOYD Ot J44.9 CHRONIC OBSTRUCTIVE PULMONARY DISEASE, U 05/01/2019 HERNÁNDEZ DO, BOYD Ot K21.9 GASTRO-ESOPHAGEAL REFLUX DISEASE WITHOUT 05/01/2019 HERNÁNDEZ DO, BOYD Ot M25.50 PAIN IN UNSPECIFIED JOINT 05/01/2019 HERNÁNDEZ DO, BOYD Ot M54.9 DORSALGIA, UNSPECIFIED 05/01/2019 HERNÁNDEZ DO, BOYD Ot R06.81 APNEA, NOT ELSEWHERE CLASSIFIED 05/01/2019 HERNÁNDEZ DO, BOYD Ot R07.9 CHEST PAIN, UNSPECIFIED 05/01/2019 HERNÁNDEZ DO, BOYD Ot R13.10 DYSPHAGIA, UNSPECIFIED 05/01/2019 HERNÁNDEZ DO, BOYD Ot R45.1 RESTLESSNESS AND AGITATION 05/01/2019 HERNÁNDEZ DO, BOYD Ot R53.1 WEAKNESS 05/02/2019 HERNÁNDEZ DO, BOYD Ot D72.82 9 ELEVATED WHITE BLOOD CELL COUNT, UNSPECI 05/02/2019 HERNÁNDEZ DO, BOYD Ot D75.1 SECONDARY POLYCYTHEMIA 05/02/2019 HERNÁNDEZ DO, BOYD Ot E78.00 PURE HYPERCHOLESTEROLEMIA, UNSPECIFIED 05/02/2019 HERNÁNDEZ DO, BOYD Ot 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 05/02/2019 HERNÁNDEZ DO, BOYD Ot F17.21 0 NICOTINE DEPENDENCE, CIGARETTES, UNCOMPL 05/02/2019 HERNÁNDEZ DO, BOYD Ot I11.0 HYPERTENSIVE HEART DISEASE WITH HEART FA 05/02/2019 HERNÁNDEZ DO, BOYD Ot I50.9 HEART FAILURE, UNSPECIFIED 05/02/2019 HERNÁNDEZ DO, BOYD Ot I71.4 ABDOMINAL AORTIC ANEURYSM, WITHOUT RUPTU 05/02/2019 HERNÁNDEZ DO, BOYD Ot I73.9 PERIPHERAL VASCULAR DISEASE, UNSPECIFIED 05/02/2019 HERNÁNDEZ DO, BOYD Ot J44.9 CHRONIC OBSTRUCTIVE PULMONARY DISEASE, U 05/02/2019 HERNÁNDEZ DO, BOYD Ot K21.9 GASTRO-ESOPHAGEAL REFLUX DISEASE WITHOUT 05/02/2019 HERNÁNDEZ DO, BOYD Ot M25.50 PAIN IN UNSPECIFIED JOINT 05/02/2019 HERNÁNDEZ DO, BOYD Ot M54.9 DORSALGIA, UNSPECIFIED 05/02/2019 HERNÁNDEZ DO, BOYD Ot R06.81 APNEA, NOT ELSEWHERE CLASSIFIED 05/02/2019 HERNÁNDEZ DO, BOYD Ot R07.9 CHEST PAIN, UNSPECIFIED 05/02/2019 HERNÁNDEZ DO, BOYD Ot R13.10 DYSPHAGIA, UNSPECIFIED 05/02/2019 HERNÁNDEZ DO, BOYD Ot R45.1 RESTLESSNESS AND AGITATION 05/02/2019 HERNÁNDEZ DO, BOYD Ot R53.1 WEAKNESS 05/02/2019 HERNÁNDEZ DO, BOYD Ot D72.82 9 ELEVATED WHITE BLOOD CELL COUNT, UNSPECI 05/02/2019 HERNÁNDEZ DO, BOYD Ot D75.1 SECONDARY POLYCYTHEMIA 05/02/2019 HERNÁNDEZ DO, BOYD Ot E78.00 PURE HYPERCHOLESTEROLEMIA, UNSPECIFIED 05/02/2019 HERNÁNDEZ DO, BOYD Ot 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 05/02/2019 HERNÁNDEZ DO, BOYD Ot F17.21 0 NICOTINE DEPENDENCE, CIGARETTES, UNCOMPL 05/02/2019 HERNÁNDEZ DO, BOYD Ot I11.0 HYPERTENSIVE HEART DISEASE WITH HEART FA 05/02/2019 HERNÁNDEZ DO, BOYD Ot I50.9 HEART FAILURE, UNSPECIFIED 05/02/2019 HERNÁNDEZ DO, OBYD Ot I71.4 ABDOMINAL AORTIC ANEURYSM, WITHOUT RUPTU 05/02/2019 HERNÁNDEZ DO, BOYD Ot I73.9 PERIPHERAL VASCULAR DISEASE, UNSPECIFIED 05/02/2019 HERNÁNDEZ DO, BOYD Ot J44.9 CHRONIC OBSTRUCTIVE PULMONARY DISEASE, U 05/02/2019 HERNÁNDEZ DO, BOYD Ot K21.9 GASTRO-ESOPHAGEAL REFLUX DISEASE WITHOUT 05/02/2019 HERNÁNDEZ DO, BOYD Ot M25.50 PAIN IN UNSPECIFIED JOINT 05/02/2019 HERNÁNDEZ DO, BOYD Ot M54.9 DORSALGIA, UNSPECIFIED 05/02/2019 HERNÁNDEZ DO, BOYD Ot R06.81 APNEA, NOT ELSEWHERE CLASSIFIED 05/02/2019 HERNÁNDEZ DO, BOYD Ot R07.9 CHEST PAIN, UNSPECIFIED 05/02/2019 HERNÁNDEZ DO, BOYD Ot R13.10 DYSPHAGIA, UNSPECIFIED 05/02/2019 HERNÁNDEZ DO, BOYD Ot R45.1 RESTLESSNESS AND AGITATION 05/02/2019 HERNÁNDEZ DO, BOYD Ot R53.1 WEAKNESS 05/02/2019 HERNÁNDEZ DO, BOYD Ot D72.82 9 ELEVATED WHITE BLOOD CELL COUNT, UNSPECI 05/02/2019 HERNÁNDEZ DO, BOYD Ot D75.1 SECONDARY POLYCYTHEMIA 05/02/2019 HERNÁNDEZ DO, BOYD Ot E78.00 PURE HYPERCHOLESTEROLEMIA, UNSPECIFIED 05/02/2019 HERNÁNDEZ DO, BOYD Ot 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 05/02/2019 HERNÁNDEZ DO, BOYD Ot F17.21 0 NICOTINE DEPENDENCE, CIGARETTES, UNCOMPL 05/02/2019 HERNÁNDEZ DO, BOYD Ot I11.0 HYPERTENSIVE HEART DISEASE WITH HEART FA 05/02/2019 HERNÁNDEZ DO, BOYD Ot I50.9 HEART FAILURE, UNSPECIFIED 05/02/2019 HERNÁNDEZ DO, BOYD Ot I71.4 ABDOMINAL AORTIC ANEURYSM, WITHOUT RUPTU 05/02/2019 HERNÁNDEZ DO, BOYD Ot I73.9 PERIPHERAL VASCULAR DISEASE, UNSPECIFIED 05/02/2019 HERNÁNDEZ DO, BOYD Ot J44.9 CHRONIC OBSTRUCTIVE PULMONARY DISEASE, U 05/02/2019 HERNÁNDEZ DO, BOYD Ot K21.9 GASTRO-ESOPHAGEAL REFLUX DISEASE WITHOUT 05/02/2019 HERNÁNDEZ DO, BOYD Ot M25.50 PAIN IN UNSPECIFIED JOINT 05/02/2019 HERNÁNDEZ DO, BOYD Ot M54.9 DORSALGIA, UNSPECIFIED 05/02/2019 HERNÁNDEZ DO, BOYD Ot R06.81 APNEA, NOT ELSEWHERE CLASSIFIED 05/02/2019 HERNÁNDEZ DO, BOYD Ot R07.9 CHEST PAIN, UNSPECIFIED 05/02/2019 HERNÁNDEZ DO, BOYD Ot R13.10 DYSPHAGIA, UNSPECIFIED 05/02/2019 HERNÁNDEZ DO, BOYD Ot R45.1 RESTLESSNESS AND AGITATION 05/02/2019 HERNÁNDEZ DO, BOYD Ot R53.1 WEAKNESS 05/03/2019 HERNÁNDEZ DO, BOYD Ot D72.82 9 ELEVATED WHITE BLOOD CELL COUNT, UNSPECI 05/03/2019 HERNÁNDEZ DO, BOYD Ot D75.1 SECONDARY POLYCYTHEMIA 05/03/2019 HERNÁNDEZ DO, BOYD Ot E78.00 PURE HYPERCHOLESTEROLEMIA, UNSPECIFIED 05/03/2019 HERNÁNDEZ DO, BOYD Ot 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 05/03/2019 HERNÁNDEZ DO, BOYD Ot F17.21 0 NICOTINE DEPENDENCE, CIGARETTES, UNCOMPL 05/03/2019 HERNÁNDEZ DO, BOYD Ot I11.0 HYPERTENSIVE HEART DISEASE WITH HEART FA 05/03/2019 HERNÁNDEZ DO, BOYD Ot I50.9 HEART FAILURE, UNSPECIFIED 05/03/2019 HERNÁNDEZ DO, BOYD Ot I71.4 ABDOMINAL AORTIC ANEURYSM, WITHOUT RUPTU 05/03/2019 HERNÁNDEZ DO, BOYD Ot I73.9 PERIPHERAL VASCULAR DISEASE, UNSPECIFIED 05/03/2019 HERNÁNDEZ DO, BOYD Ot J44.9 CHRONIC OBSTRUCTIVE PULMONARY DISEASE, U 05/03/2019 HERNÁNDEZ DO, BOYD Ot K21.9 GASTRO-ESOPHAGEAL REFLUX DISEASE WITHOUT 05/03/2019 HERNÁNDEZ DO, BOYD Ot M25.50 PAIN IN UNSPECIFIED JOINT 05/03/2019 HERNÁNDEZ DO, BOYD Ot M54.9 DORSALGIA, UNSPECIFIED 05/03/2019 HERNÁNDEZ DO, BOYD Ot R06.81 APNEA, NOT ELSEWHERE CLASSIFIED 05/03/2019 HERNÁNDEZ DO, BOYD Ot R07.9 CHEST PAIN, UNSPECIFIED 05/03/2019 HERNÁNDEZ DO, BOYD Ot R13.10 DYSPHAGIA, UNSPECIFIED 05/03/2019 HERNÁNDEZ DO, BOYD Ot R45.1 RESTLESSNESS AND AGITATION 05/03/2019 HERNÁNDEZ DO, BOYD Ot R53.1 WEAKNESS 05/03/2019 HERNÁNDEZ DO, BOYD Ot D72.82 9 ELEVATED WHITE BLOOD CELL COUNT, UNSPECI 05/03/2019 HERNÁNDEZ DO, BOYD Ot D75.1 SECONDARY POLYCYTHEMIA 05/03/2019 HERNÁNDEZ DO, BOYD Ot E78.00 PURE HYPERCHOLESTEROLEMIA, UNSPECIFIED 05/03/2019 HERNÁNDEZ DO, BOYD Ot F01.51 VASCULAR DEMENTIA WITH BEHAVIORAL DISTUR 05/03/2019 HERNÁNDEZ DO, BOYD Ot 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 05/03/2019 HERNÁNDEZ DO, BOYD Ot F17.21 0 NICOTINE DEPENDENCE, CIGARETTES, UNCOMPL 05/03/2019 HERNÁNDEZ DO, BOYD Ot I11.0 HYPERTENSIVE HEART DISEASE WITH HEART FA 05/03/2019 HERNÁNDEZ DO, BOYD Ot I50.9 HEART FAILURE, UNSPECIFIED 05/03/2019 HERNÁNDEZ DO, BOYD Ot I71.4 ABDOMINAL AORTIC ANEURYSM, WITHOUT RUPTU 05/03/2019 HERNÁNDEZ DO, BOYD Ot I73.9 PERIPHERAL VASCULAR DISEASE, UNSPECIFIED 05/03/2019 HERNÁNDEZ DO, BOYD Ot J18.9 PNEUMONIA, UNSPECIFIED ORGANISM 05/03/2019 HERNÁNDEZ DO, BOYD Ot J44.9 CHRONIC OBSTRUCTIVE PULMONARY DISEASE, U 05/03/2019 HERNÁNDEZ DO, BOYD Ot K21.9 GASTRO-ESOPHAGEAL REFLUX DISEASE WITHOUT 05/03/2019 HERNÁNDEZ DO, BODY Ot M19.02 1 PRIMARY OSTEOARTHRITIS, RIGHT ELBOW 05/03/2019 HERNÁNDEZ DO, BOYD Ot M54.9 DORSALGIA, UNSPECIFIED 05/03/2019 HERNÁNDEZ DO, BOYD Ot R06.81 APNEA, NOT ELSEWHERE CLASSIFIED 05/03/2019 HERNÁNDEZ DO, BOYD Ot R07.9 CHEST PAIN, UNSPECIFIED 05/03/2019 HERNÁNDEZ DO, BOYD Ot R13.10 DYSPHAGIA, UNSPECIFIED 05/03/2019 HERNÁNDEZ DO, BOYD Ot R41.0 DISORIENTATION, UNSPECIFIED 05/03/2019 HERNÁNDEZ DO, BOYD Ot R45.1 RESTLESSNESS AND AGITATION 05/03/2019 HERNÁNDEZ DO, BOYD Ot R53.1 WEAKNESS 05/16/2019 HERNÁNDEZ DO, BOYD Ot D72.82 9 ELEVATED WHITE BLOOD CELL COUNT, UNSPECI 05/16/2019 HERNÁNDEZ DO, BOYD Ot D75.1 SECONDARY POLYCYTHEMIA 05/16/2019 HERNÁNDEZ DO, BOYD Ot E78.00 PURE HYPERCHOLESTEROLEMIA, UNSPECIFIED 05/16/2019 HERNÁNDEZ DO, BOYD Ot F01.51 VASCULAR DEMENTIA WITH BEHAVIORAL DISTUR 05/16/2019 HERNÁNDEZ DO, BOYD Ot 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 05/16/2019 HERNÁNDEZ DO, BOYD Ot F17.21 0 NICOTINE DEPENDENCE, CIGARETTES, UNCOMPL 05/16/2019 HERNÁNDEZ DO, BOYD Ot I11.0 HYPERTENSIVE HEART DISEASE WITH HEART FA 05/16/2019 HERNÁNDEZ DO, BOYD Ot I50.9 HEART FAILURE, UNSPECIFIED 05/16/2019 HERNÁNDEZ DO, BOYD Ot I71.4 ABDOMINAL AORTIC ANEURYSM, WITHOUT RUPTU 05/16/2019 HERNÁNDEZ DO, BOYD Ot I73.9 PERIPHERAL VASCULAR DISEASE, UNSPECIFIED 05/16/2019 HERNÁNDEZ DO, BOYD Ot J18.9 PNEUMONIA, UNSPECIFIED ORGANISM 05/16/2019 HERNÁNDEZ DO, BOYD Ot J44.9 CHRONIC OBSTRUCTIVE PULMONARY DISEASE, U 05/16/2019 HERNÁNDEZ DO, BOYD Ot K21.9 GASTRO-ESOPHAGEAL REFLUX DISEASE WITHOUT 05/16/2019 HERNÁNDEZ DO, BOYD Ot M19.02 1 PRIMARY OSTEOARTHRITIS, RIGHT ELBOW 05/16/2019 HERNÁNDEZ DO, BOYD Ot M54.9 DORSALGIA, UNSPECIFIED 05/16/2019 HERNÁNDEZ DO, BOYD Ot R06.81 APNEA, NOT ELSEWHERE CLASSIFIED 05/16/2019 HERNÁNDEZ DO, BOYD Ot R07.9 CHEST PAIN, UNSPECIFIED 05/16/2019 HERNÁNDEZ DO, BOYD Ot R13.10 DYSPHAGIA, UNSPECIFIED 05/16/2019 HERNÁNDEZ DO, BOYD Ot R41.0 DISORIENTATION, UNSPECIFIED 05/16/2019 HERNÁNDEZ DO, BOYD Ot R45.1 RESTLESSNESS AND AGITATION 05/16/2019 HERNÁNDEZ DO, BOYD Ot R53.1 WEAKNESS 05/16/2019 HERNÁNDEZ DO, BOYD Ot D72.82 9 ELEVATED WHITE BLOOD CELL COUNT, UNSPECI 05/16/2019 HERNÁNDEZ DO, BOYD Ot D75.1 SECONDARY POLYCYTHEMIA 05/16/2019 HERNÁNDEZ DO, BOYD Ot E78.00 PURE HYPERCHOLESTEROLEMIA, UNSPECIFIED 05/16/2019 HERNÁNDEZ DO, BOYD Ot F01.51 VASCULAR DEMENTIA WITH BEHAVIORAL DISTUR 05/16/2019 HERNÁNDEZ DO, BOYD Ot 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 05/16/2019 HERNÁNDEZ DO, BOYD Ot F17.21 0 NICOTINE DEPENDENCE, CIGARETTES, UNCOMPL 05/16/2019 HERNÁNDEZ DO, BOYD Ot I11.0 HYPERTENSIVE HEART DISEASE WITH HEART FA 05/16/2019 HERNÁNDEZ DO, BOYD Ot I50.9 HEART FAILURE, UNSPECIFIED 05/16/2019 HERNÁNDEZ DO, BOYD Ot I71.4 ABDOMINAL AORTIC ANEURYSM, WITHOUT RUPTU 05/16/2019 HERNÁNDEZ DO, BOYD Ot I73.9 PERIPHERAL VASCULAR DISEASE, UNSPECIFIED 05/16/2019 HERNÁNDEZ DO, BOYD Ot J18.9 PNEUMONIA, UNSPECIFIED ORGANISM 05/16/2019 HERNÁNDEZ DO, BOYD Ot J44.9 CHRONIC OBSTRUCTIVE PULMONARY DISEASE, U 05/16/2019 HERNÁNDEZ DO, BOYD Ot K21.9 GASTRO-ESOPHAGEAL REFLUX DISEASE WITHOUT 05/16/2019 HERNÁNDEZ DO, BOYD Ot M19.02 1 PRIMARY OSTEOARTHRITIS, RIGHT ELBOW 05/16/2019 HERNÁNDEZ DO, BOYD Ot M54.9 DORSALGIA, UNSPECIFIED 05/16/2019 HERNÁNDEZ DO, BOYD Ot R06.81 APNEA, NOT ELSEWHERE CLASSIFIED 05/16/2019 HERNÁNDEZ DO, BOYD Ot R07.9 CHEST PAIN, UNSPECIFIED 05/16/2019 HERNÁNDEZ DO, BOYD Ot R13.10 DYSPHAGIA, UNSPECIFIED 05/16/2019 HERNÁNDEZ DO, BOYD Ot R41.0 DISORIENTATION, UNSPECIFIED 05/16/2019 HERNÁNDEZ DO, BOYD Ot R45.1 RESTLESSNESS AND AGITATION 05/16/2019 HERNÁNDEZ DO, BOYD Ot R53.1 WEAKNESS 05/16/2019 HERNÁNDEZ DO, BOYD Ot D72.82 9 ELEVATED WHITE BLOOD CELL COUNT, UNSPECI 05/16/2019 HERNÁNDEZ DO, BOYD Ot D75.1 SECONDARY POLYCYTHEMIA 05/16/2019 HERNÁNDEZ DO, BOYD Ot E78.00 PURE HYPERCHOLESTEROLEMIA, UNSPECIFIED 05/16/2019 HERNÁNDEZ DO, BOYD Ot F01.51 VASCULAR DEMENTIA WITH BEHAVIORAL DISTUR 05/16/2019 HERNÁNDEZ DO, BOYD Ot 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 05/16/2019 HERNÁNDEZ DO, BOYD Ot F17.21 0 NICOTINE DEPENDENCE, CIGARETTES, UNCOMPL 05/16/2019 HERNÁNDEZ DO, BOYD Ot I11.0 HYPERTENSIVE HEART DISEASE WITH HEART FA 05/16/2019 HERNÁNDEZ DO, BOYD Ot I50.9 HEART FAILURE, UNSPECIFIED 05/16/2019 HERNÁNDEZ DO, BOYD Ot I71.4 ABDOMINAL AORTIC ANEURYSM, WITHOUT RUPTU 05/16/2019 HERNÁNDEZ DO, BOYD Ot I73.9 PERIPHERAL VASCULAR DISEASE, UNSPECIFIED 05/16/2019 HERNÁNDEZ DO, BOYD Ot J18.9 PNEUMONIA, UNSPECIFIED ORGANISM 05/16/2019 HERNÁNDEZ DO, BOYD Ot J44.9 CHRONIC OBSTRUCTIVE PULMONARY DISEASE, U 05/16/2019 HERNÁNDEZ DO, BOYD Ot K21.9 GASTRO-ESOPHAGEAL REFLUX DISEASE WITHOUT 05/16/2019 HERNÁNDEZ DO, BOYD Ot M19.02 1 PRIMARY OSTEOARTHRITIS, RIGHT ELBOW 05/16/2019 HERNÁNDEZ DO, BOYD Ot M54.9 DORSALGIA, UNSPECIFIED 05/16/2019 HERNÁNDEZ DO, BOYD Ot R06.81 APNEA, NOT ELSEWHERE CLASSIFIED 05/16/2019 HERNÁNDEZ DO, BOYD Ot R07.9 CHEST PAIN, UNSPECIFIED 05/16/2019 HERNÁNDEZ DO, BOYD Ot R13.10 DYSPHAGIA, UNSPECIFIED 05/16/2019 HERNÁNDEZ DO, BOYD Ot R41.0 DISORIENTATION, UNSPECIFIED 05/16/2019 HERNÁNDEZ DO, BOYD Ot R45.1 RESTLESSNESS AND AGITATION 05/16/2019 HERNÁNDEZ DO, BOYD Ot R53.1 WEAKNESS 05/16/2019 HERNÁNDEZ DO, BOYD Ot D72.82 9 ELEVATED WHITE BLOOD CELL COUNT, UNSPECI 05/16/2019 HERNÁNDEZ DO, BOYD Ot D75.1 SECONDARY POLYCYTHEMIA 05/16/2019 HERNÁNDEZ DO, BOYD Ot E78.00 PURE HYPERCHOLESTEROLEMIA, UNSPECIFIED 05/16/2019 HERNÁNDEZ DO, BOYD Ot F01.51 VASCULAR DEMENTIA WITH BEHAVIORAL DISTUR 05/16/2019 HERNÁNDEZ DO, BOYD Ot 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 05/16/2019 HERNÁNDEZ DO, BOYD Ot F17.21 0 NICOTINE DEPENDENCE, CIGARETTES, UNCOMPL 05/16/2019 HERNÁNDEZ DO, BOYD Ot I11.0 HYPERTENSIVE HEART DISEASE WITH HEART FA 05/16/2019 HERNÁNDEZ DO, BOYD Ot I50.9 HEART FAILURE, UNSPECIFIED 05/16/2019 HERNÁNDEZ DO, BOYD Ot I71.4 ABDOMINAL AORTIC ANEURYSM, WITHOUT RUPTU 05/16/2019 HERNÁNDEZ DO, BOYD Ot I73.9 PERIPHERAL VASCULAR DISEASE, UNSPECIFIED 05/16/2019 HERNÁNDEZ DO, BOYD Ot J18.9 PNEUMONIA, UNSPECIFIED ORGANISM 05/16/2019 HERNÁNDEZ DO, BOYD Ot J44.9 CHRONIC OBSTRUCTIVE PULMONARY DISEASE, U 05/16/2019 HERNÁNDEZ DO, BOYD Ot K21.9 GASTRO-ESOPHAGEAL REFLUX DISEASE WITHOUT 05/16/2019 HERNÁNDEZ DO, BOYD Ot M19.02 1 PRIMARY OSTEOARTHRITIS, RIGHT ELBOW 05/16/2019 HERNÁNDEZ DO, BOYD Ot M54.9 DORSALGIA, UNSPECIFIED 05/16/2019 HERNÁNDEZ DO, BOYD Ot R06.81 APNEA, NOT ELSEWHERE CLASSIFIED 05/16/2019 HERNÁNDEZ DO, BOYD Ot R07.9 CHEST PAIN, UNSPECIFIED 05/16/2019 HERNÁNDEZ DO, BOYD Ot R13.10 DYSPHAGIA, UNSPECIFIED 05/16/2019 HERNÁNDEZ DO, BOYD Ot R41.0 DISORIENTATION, UNSPECIFIED 05/16/2019 HERNÁNDEZ DO, BOYD Ot R45.1 RESTLESSNESS AND AGITATION 05/16/2019 HERNÁNDEZ DO, BOYD Ot R53.1 WEAKNESS 05/16/2019 HERNÁNDEZ DO, BOYD Ot D72.82 9 ELEVATED WHITE BLOOD CELL COUNT, UNSPECI 05/16/2019 HERNÁNDEZ DO, BOYD Ot D75.1 SECONDARY POLYCYTHEMIA 05/16/2019 HERNÁNDEZ DO, BOYD Ot E78.00 PURE HYPERCHOLESTEROLEMIA, UNSPECIFIED 05/16/2019 HERNÁNDEZ DO, BOYD Ot F01.51 VASCULAR DEMENTIA WITH BEHAVIORAL DISTUR 05/16/2019 HERNÁNDEZ DO, BOYD Ot 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 05/16/2019 HERNÁNDEZ DO, BOYD Ot F17.21 0 NICOTINE DEPENDENCE, CIGARETTES, UNCOMPL 05/16/2019 HERNÁNDEZ DO, BOYD Ot I11.0 HYPERTENSIVE HEART DISEASE WITH HEART FA 05/16/2019 HERNÁNDEZ DO, BOYD Ot I50.9 HEART FAILURE, UNSPECIFIED 05/16/2019 HERNÁNDEZ DO, BOYD Ot I71.4 ABDOMINAL AORTIC ANEURYSM, WITHOUT RUPTU 05/16/2019 HERNÁNDEZ DO, BOYD Ot I73.9 PERIPHERAL VASCULAR DISEASE, UNSPECIFIED 05/16/2019 HERNÁNDEZ DO, BOYD Ot J18.9 PNEUMONIA, UNSPECIFIED ORGANISM 05/16/2019 HERNÁNDEZ DO, BOYD Ot J44.9 CHRONIC OBSTRUCTIVE PULMONARY DISEASE, U 05/16/2019 HERNÁNDEZ DO, BOYD Ot K21.9 GASTRO-ESOPHAGEAL REFLUX DISEASE WITHOUT 05/16/2019 HERNÁNDEZ DO, BOYD Ot M19.02 1 PRIMARY OSTEOARTHRITIS, RIGHT ELBOW 05/16/2019 HERNÁNDEZ DO, BOYD Ot M54.9 DORSALGIA, UNSPECIFIED 05/16/2019 HERNÁNDEZ DO, BOYD Ot R06.81 APNEA, NOT ELSEWHERE CLASSIFIED 05/16/2019 HERNÁNDEZ DO, BOYD Ot R07.9 CHEST PAIN, UNSPECIFIED 05/16/2019 HERNÁNDEZ DO, BOYD Ot R13.10 DYSPHAGIA, UNSPECIFIED 05/16/2019 HERNÁNDEZ DO, BOYD Ot R41.0 DISORIENTATION, UNSPECIFIED 05/16/2019 HERNÁNDEZ DO, BOYD Ot R45.1 RESTLESSNESS AND AGITATION 05/16/2019 HERNÁNDEZ DO, BOYD Ot R53.1 WEAKNESS 05/16/2019 HERNÁNDEZ DO, BOYD Ot D72.82 9 ELEVATED WHITE BLOOD CELL COUNT, UNSPECI 05/16/2019 HERNÁNDEZ DO, BOYD Ot D75.1 SECONDARY POLYCYTHEMIA 05/16/2019 HERNÁNDEZ DO, BOYD Ot E78.00 PURE HYPERCHOLESTEROLEMIA, UNSPECIFIED 05/16/2019 HERNÁNDEZ DO, BOYD Ot F01.51 VASCULAR DEMENTIA WITH BEHAVIORAL DISTUR 05/16/2019 HERNÁNDEZ DO, BOYD Ot 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 05/16/2019 HERNÁNDEZ DO, BOYD Ot F17.21 0 NICOTINE DEPENDENCE, CIGARETTES, UNCOMPL 05/16/2019 HERNÁNDEZ DO, BOYD Ot I11.0 HYPERTENSIVE HEART DISEASE WITH HEART FA 05/16/2019 HERNÁNDEZ DO, BOYD Ot I50.9 HEART FAILURE, UNSPECIFIED 05/16/2019 HERNÁNDEZ DO, BOYD Ot I71.4 ABDOMINAL AORTIC ANEURYSM, WITHOUT RUPTU 05/16/2019 HERNÁNDEZ DO, BOYD Ot I73.9 PERIPHERAL VASCULAR DISEASE, UNSPECIFIED 05/16/2019 HERNÁNDEZ DO, BOYD Ot J18.9 PNEUMONIA, UNSPECIFIED ORGANISM 05/16/2019 HERNÁNDEZ DO, BOYD Ot J44.9 CHRONIC OBSTRUCTIVE PULMONARY DISEASE, U 05/16/2019 HERNÁNDEZ DO, BOYD Ot K21.9 GASTRO-ESOPHAGEAL REFLUX DISEASE WITHOUT 05/16/2019 HERNÁNDEZ DO, BOYD Ot M19.02 1 PRIMARY OSTEOARTHRITIS, RIGHT ELBOW 05/16/2019 HERNÁNDEZ DO, BOYD Ot M54.9 DORSALGIA, UNSPECIFIED 05/16/2019 HERNÁNDEZ DO, BOYD Ot R06.81 APNEA, NOT ELSEWHERE CLASSIFIED 05/16/2019 HERNÁNDEZ DO, BOYD Ot R07.9 CHEST PAIN, UNSPECIFIED 05/16/2019 HERNNÁDEZ DO, BOYD Ot R13.10 DYSPHAGIA, UNSPECIFIED 05/16/2019 HERNÁNDEZ DO, BOYD Ot R41.0 DISORIENTATION, UNSPECIFIED 05/16/2019 HERNÁNDEZ DO, BOYD Ot R45.1 RESTLESSNESS AND AGITATION 05/16/2019 HERNÁNDEZ DO, BOYD Ot R53.1 WEAKNESS 08/13/2019 GILLIAN FOX [employer] ENGINEER Ot D72.829 ELEVATED WHITE BLOOD CELL COUNT, UNSPECI 08/13/2019 GILLIAN FOX TELE[employer] ENGINEER Ot D72.829 ELEVATED WHITE BLOOD CELL COUNT, UNSPECI 08/21/2019 GILLIAN FOX TELECOM ENGINEER Ot D72.829 ELEVATED WHITE BLOOD CELL COUNT, UNSPECI 08/26/2019 GILLIAN FOX TELECOM ENGINEER Ot D72.829 ELEVATED WHITE BLOOD CELL COUNT, UNSPECI 10/02/2019 GILLIAN FOX TELECOM ENGINEER Ot D72.829 ELEVATED WHITE BLOOD CELL COUNT, UNSPECI 10/02/2019 SELF SIRISHA MATHUR Ot N18.9 CHRONIC KIDNEY DISEASE, UNSPECIFIED 10/06/2019 SELF SIRISHA MATHUR Ot N18.9 CHRONIC KIDNEY DISEASE, UNSPECIFIED 10/06/2019 SELF SIRISHA MATHUR Ot N18.9 CHRONIC KIDNEY DISEASE, UNSPECIFIED 10/06/2019 SELF MD, SIRISHA Ot N18.9 CHRONIC KIDNEY DISEASE, UNSPECIFIED Procedures There is no data. Results Test Result Range Complete blood count (CBC) with automate d white blood cell (WBC) differential - 04/27/19 20:16 Blood leukocytes automated count (number/volume) 8.2 10*3/uL 4.3-11.0 Blood erythrocytes automated count (number/volume) 6.25 10*6/uL 4.35-5.85 Venous blood hemoglobin measurement (mass/volume) 19.5 g/dL 13.3-17.7 Blood hematocrit (volume fraction) 58 % 40-54 Automated erythrocyte mean corpuscular volume 92 [ foz_us] 80-99 Automated erythrocyte mean corpuscular h emoglobin (mass per erythrocyte) 31 pg 25-34 Automated erythrocyte mean corpuscular h emoglobin concentration measurement (mass/volume) 34 g/dL 32-36 Automated erythrocyte distribution width ratio 14. 8 % 10.0- 14.5 Automated blood platelet count (count/volume) 234 10*3/uL 130-400 Automated blood platelet mean volume measurement 10.5 [foz_us] 7.4-10.4 Automated blood neutrophils/100 leukocytes 50 % 42-75 Automated blood lymphocytes/100 leukocytes 31 % 12-44 Blood monocytes/100 leukocytes 13 % 0-12 Automated blood eosinophils/100 leukocytes 6 % 0-10 Automated blood basophils/100 leukocytes 1 % 0-10 Blood neutrophils automated count (number/volume) 4.1 10*3 1.8-7.8 Blood lymphocytes automated count (number/volume) 2.5 10*3 1.0-4.0 Blood monocytes automated count (number/volume) 1. 0 10*3 0.0-1.0 Automated eosinophil count 0.5 10*3/uL 0 .0-0.3 Automated blood basophil count (count/volume) 0.1 10*3/uL 0.0-0.1 PT panel in platelet poor plasma by coag ulation assay - 04/27/19 20:16 Prothrombin time (PT) in platelet poor plasma by coagu lation assay 12.9 s 12.2-14.7 INR in platelet poor plasma or blood by coagulation as say 0.9 0.8-1.4 Activated partial thromboplastin time (a PTT) in platelet poor plasma bycoagulation assay - 04/27/19 20:16 Activated partial thromboplastin time (a PTT) in platelet poor plasma bycoagulation assay 31 s 24-35 Comprehensive metabolic panel - 04/27/19 20:16 Serum or plasma sodium measurement (moles/volume) 139 mmol/L 135-145 Serum or plasma potassium measurement (moles/volume) 4.2 mmol/L 3.6-5.0 Serum or plasma chloride measurement (moles/volume) 105 mmol/L 98-107 Carbon dioxide 25 mmol/L 21-32 Serum or plasma anion gap determination (moles/volume) 9 mmol/L 5-14 Serum or plasma urea nitrogen measurement (mass/volume ) 16 mg/dL 7-18 Serum or plasma creatinine measurement (mass/volume) 1.03 mg/dL 0.60-1.30 Serum or plasma urea nitrogen/creatinine mass ratio 16 NRG Serum or plasma creatinine measurement w ith calculation of estimated glomerular filtration rate > NRG Serum or plasma glucose measurement (mass/volume) 98 mg/dL 70-105 Serum or plasma calcium measurement (mass/volume) 9.2 mg/dL 8.5-10.1 Serum or plasma total bilirubin measurement (mass/volu me) 0.9 mg/dL 0.1-1.0 Serum or plasma alkaline phosphatase mahin surement (enzymatic activity/volume) 52 U/L 40-136 Serum or plasma aspartate aminotransfera se measurement (enzymatic activity/volume) 18 U/L 5-34 Serum or plasma alanine aminotransferase measurement (enzymatic activity/volume) 15 U/L 0-55 Serum or plasma protein measurement (mass/volume) 6.4 g/dL 6.4-8.2 Serum or plasma albumin measurement (mass/volume) 3.7 g/dL 3.2-4.5 CALCIUM CORRECTED 9.4 mg/dL 8.5-10.1 Magnesium - 04/27/19 20:16 Magnesium 1.7 mg/dL 1.6-2.4 Fibrin D-dimer FEU measurement in platel et poor plasma (mass/volume) - 04/27/19 20:16 Fibrin D-dimer FEU measurement in platelet poor plasma (mass/volume) 1.52 ug/mL 0.00-0.49 Myoglobin, serum - 04/27/19 20:16 Myoglobin, serum 42.1 ng/mL 10.0-92.0 Serum or plasma troponin i.cardiac measu rement (mass/volume) - 04/27/19 20:16 Serum or plasma troponin i.cardiac measurement (mass/v olume) < ng/mL <0.028 Serum or plasma lithium measurement (mol es/volume) - 04/27/19 20:16 BNP PT 286.1 pg/mL <100.0 Serum or plasma ethanol measurement (mas s/volume) - 04/27/19 20:16 Serum or plasma ethanol measurement (mass/volume) < mg/dL <10 Methicillin resistant Staphylococcus aur eus (MRSA) screening culture - 04/27/19 23:08 Methicillin resistant Staphylococcus aureus (MRSA) scr eening culture NEG NRG Complete urinalysis with reflex to cultu re - 04/28/19 01:10 Urine color determination YELLOW NRG Urine clarity determination CLEAR NR G Urine pH measurement by test strip 8.0 5-9 Specific gravity of urine by test strip 1.015 1.016-1.022 Urine protein assay by test strip, semi-quantitative NEGATIVE NEGATIVE Urine glucose detection by automated test strip NE GATIVE NEGATIVE Erythrocytes detection in urine sediment by light micr oscopy 1+ NEGATIVE Urine ketones detection by automated test strip NE GATIVE NEGATIVE Urine nitrite detection by test strip NEGATIVE NEGATIVE Urine total bilirubin detection by test strip NEGA TIVE NEGATIVE Urine urobilinogen measurement by automated test strip (mass/volume) 0.2 mg/dL < = 1.0 Urine leukocyte esterase detection by dipstick NEG ATIVE NEGATIVE Automated urine sediment erythrocyte cou nt by microscopy (number/high power field) [HPF] NRG Automated urine sediment leukocyte count by microscopy (number/high power field) NONE NRG Bacteria detection in urine sediment by light microsco py TRACE NRG Squamous epithelial cells detection in u rine sediment by light microscopy RARE NRG Crystals detection in urine sediment by light microsco py NONE NRG Casts detection in urine sediment by light microscopy NONE NRG Mucus detection in urine sediment by light microscopy NEGATIVE NRG Complete urinalysis with reflex to culture NO NRG Complete blood count (CBC) with automate d white blood cell (WBC) differential - 04/28/19 03:25 Blood leukocytes automated count (number/volume) 12.5 10*3/uL 4.3-11.0 Blood erythrocytes automated count (number/volume) 6.36 10*6/uL 4.35-5.85 Venous blood hemoglobin measurement (mass/volume) 19.8 g/dL 13.3-17.7 Blood hematocrit (volume fraction) 58 % 40-54 Automated erythrocyte mean corpuscular volume 91 [ foz_us] 80-99 Automated erythrocyte mean corpuscular h emoglobin (mass per erythrocyte) 31 pg 25-34 Automated erythrocyte mean corpuscular h emoglobin concentration measurement (mass/volume) 34 g/dL 32-36 Automated erythrocyte distribution width ratio 14. 8 % 10.0- 14.5 Automated blood platelet count (count/volume) 238 10*3/uL 130-400 Automated blood platelet mean volume measurement 10.7 [foz_us] 7.4-10.4 Automated blood neutrophils/100 leukocytes 74 % 42-75 Automated blood lymphocytes/100 leukocytes 14 % 12-44 Blood monocytes/100 leukocytes 10 % 0-12 Automated blood eosinophils/100 leukocytes 2 % 0-10 Automated blood basophils/100 leukocytes 0 % 0-10 Blood neutrophils automated count (number/volume) 9.3 10*3 1.8-7.8 Blood lymphocytes automated count (number/volume) 1.7 10*3 1.0-4.0 Blood monocytes automated count (number/volume) 1. 2 10*3 0.0-1.0 Automated eosinophil count 0.3 10*3/uL 0 .0-0.3 Automated blood basophil count (count/volume) 0.0 10*3/uL 0.0-0.1 Comprehensive metabolic panel - 04/28/19 03:25 Serum or plasma sodium measurement (moles/volume) 137 mmol/L 135-145 Serum or plasma potassium measurement (moles/volume) 3.8 mmol/L 3.6-5.0 Serum or plasma chloride measurement (moles/volume) 107 mmol/L 98-107 Carbon dioxide 19 mmol/L 21-32 Serum or plasma anion gap determination (moles/volume) 11 mmol/L 5-14 Serum or plasma urea nitrogen measurement (mass/volume ) 16 mg/dL 7-18 Serum or plasma creatinine measurement (mass/volume) 0.94 mg/dL 0.60-1.30 Serum or plasma urea nitrogen/creatinine mass ratio 17 NRG Serum or plasma creatinine measurement w ith calculation of estimated glomerular filtration rate > NRG Serum or plasma glucose measurement (mass/volume) 130 mg/dL 70-105 Serum or plasma calcium measurement (mass/volume) 9.1 mg/dL 8.5-10.1 Serum or plasma total bilirubin measurement (mass/volu me) 1.2 mg/dL 0.1-1.0 Serum or plasma alkaline phosphatase mahin surement (enzymatic activity/volume) 51 U/L 40-136 Serum or plasma aspartate aminotransfera se measurement (enzymatic activity/volume) 19 U/L 5-34 Serum or plasma alanine aminotransferase measurement (enzymatic activity/volume) 15 U/L 0-55 Serum or plasma protein measurement (mass/volume) 6.2 g/dL 6.4-8.2 Serum or plasma albumin measurement (mass/volume) 3.5 g/dL 3.2-4.5 CALCIUM CORRECTED 9.5 mg/dL 8.5-10.1 Serum or plasma phosphate measurement (m ass/volume) - 04/28/19 03:25 Serum or plasma phosphate measurement (mass/volume) 2.7 mg/dL 2.3-4.7 Magnesium - 04/28/19 03:25 Magnesium 1.5 mg/dL 1.6-2.4 Lipid 1996 panel - 04/28/19 03:25 Serum or plasma triglyceride measurement (mass/volume) 79 mg/dL <150 Serum or plasma cholesterol measurement (mass/volume) 172 mg/dL < 200 Serum or plasma cholesterol in HDL measurement (mass/v olume) 49 mg/dL 40-60 Cholesterol in LDL [mass/volume] in serum or plasma by direct assay 119 mg/dL 1-129 Serum or plasma cholesterol in VLDL measurement (mass/ volume) 16 mg/dL 5-40 Bacterial blood culture - 04/28/19 04:50 Bacterial blood culture [facility] Bacterial blood culture - 04/28/19 04:50 Bacterial blood culture [facility] Blood lactic acid measurement (moles/vol ume) - 04/28/19 04:55 Blood lactic acid measurement (moles/volume) 1.42 mmol/L 0.50-2.00 Bacterial blood culture - 04/28/19 04:55 Bacterial blood culture [facility] Arterial blood gas measurement - 0 05:20 Blood pCO2 34 mm[Hg] 35-45 Blood pO2 74 mm[Hg] 79-93 Arterial blood bicarbonate measurement (moles/volume) 24 mmol/L 23-27 Arterial blood base excess by calculation 0.7 mmol /L -2.5-2.5 Arterial blood oxygen saturation measurement 96 % 94-100 * Inhaled oxygen flow rate ROOM AIR NRG Arterial blood pH measurement with patient temperature correction 7.47 7.37-7.43 Arterial blood carbon dioxide, total measurement (mole s/volume) 25.3 mmol/L 21.0-31.0 Body site LT RADIAL NRG Assessment of wrist artery patency prior to arterial p uncture POSITIVE NRG Setting of ventilation mode NO NR G Measurement of body temperature 36.2 NRG Serum or plasma troponin i.cardiac measu rement (mass/volume) - 04/28/19 05:55 Serum or plasma troponin i.cardiac measurement (mass/v olume) < ng/mL <0.028 Capillary blood glucose measurement by g lucometer (mass/volume) - 04/28/19 17:37 Capillary blood glucose measurement by glucometer (mas s/volume) 134 mg/dL 70-110 Capillary blood glucose measurement by g lucometer (mass/volume) - 04/28/19 23:53 Capillary blood glucose measurement by glucometer (mas s/volume) 120 mg/dL 70-110 Complete blood count (CBC) with automate d white blood cell (WBC) differential - 04/29/19 03:55 Blood leukocytes automated count (number/volume) 8.8 10*3/uL 4.3-11.0 Blood erythrocytes automated count (number/volume) 5.83 10*6/uL 4.35-5.85 Venous blood hemoglobin measurement (mass/volume) 18.2 g/dL 13.3-17.7 Blood hematocrit (volume fraction) 53 % 40-54 Automated erythrocyte mean corpuscular volume 92 [ foz_us] 80-99 Automated erythrocyte mean corpuscular h emoglobin (mass per erythrocyte) 31 pg 25-34 Automated erythrocyte mean corpuscular h emoglobin concentration measurement (mass/volume) 34 g/dL 32-36 Automated erythrocyte distribution width ratio 14. 3 % 10.0- 14.5 Automated blood platelet count (count/volume) 213 10*3/uL 130-400 Automated blood platelet mean volume measurement 11.0 [foz_us] 7.4-10.4 Automated blood neutrophils/100 leukocytes 59 % 42-75 Automated blood lymphocytes/100 leukocytes 25 % 12-44 Blood monocytes/100 leukocytes 13 % 0-12 Automated blood eosinophils/100 leukocytes 2 % 0-10 Automated blood basophils/100 leukocytes 1 % 0-10 Blood neutrophils automated count (number/volume) 5.2 10*3 1.8-7.8 Blood lymphocytes automated count (number/volume) 2.2 10*3 1.0-4.0 Blood monocytes automated count (number/volume) 1. 2 10*3 0.0-1.0 Automated eosinophil count 0.2 10*3/uL 0 .0-0.3 Automated blood basophil count (count/volume) 0.1 10*3/uL 0.0-0.1 Whole blood basic metabolic panel - 04/19 04/07 03:55 Serum or plasma sodium measurement (moles/volume) 138 mmol/L 135-145 Serum or plasma potassium measurement (moles/volume) 3.6 mmol/L 3.6-5.0 Serum or plasma chloride measurement (moles/volume) 108 mmol/L 98-107 Carbon dioxide 20 mmol/L 21-32 Serum or plasma anion gap determination (moles/volume) 10 mmol/L 5-14 Serum or plasma urea nitrogen measurement (mass/volume ) 11 mg/dL 7-18 Serum or plasma creatinine measurement (mass/volume) 0.86 mg/dL 0.60-1.30 Serum or plasma urea nitrogen/creatinine mass ratio 13 NRG Serum or plasma creatinine measurement w ith calculation of estimated glomerular filtration rate > NRG Serum or plasma glucose measurement (mass/volume) 122 mg/dL 70-105 Serum or plasma calcium measurement (mass/volume) 8.5 mg/dL 8.5-10.1 Serum or plasma phosphate measurement (m ass/volume) - 04/29/19 03:55 Serum or plasma phosphate measurement (mass/volume) 3.2 mg/dL 2.3-4.7 Magnesium - 04/29/19 03:55 Magnesium 1.7 mg/dL 1.6-2.4 Complete blood count (CBC) with automate d white blood cell (WBC) differential - 04/30/19 04:25 Blood leukocytes automated count (number/volume) 9.8 10*3/uL 4.3-11.0 Blood erythrocytes automated count (number/volume) 6.32 10*6/uL 4.35-5.85 Venous blood hemoglobin measurement (mass/volume) 19.5 g/dL 13.3-17.7 Blood hematocrit (volume fraction) 58 % 40-54 Automated erythrocyte mean corpuscular volume 92 [ foz_us] 80-99 Automated erythrocyte mean corpuscular h emoglobin (mass per erythrocyte) 31 pg 25-34 Automated erythrocyte mean corpuscular h emoglobin concentration measurement (mass/volume) 34 g/dL 32-36 Automated erythrocyte distribution width ratio 14. 5 % 10.0- 14.5 Automated blood platelet count (count/volume) 220 10*3/uL 130-400 Automated blood platelet mean volume measurement 11.5 [foz_us] 7.4-10.4 Automated blood neutrophils/100 leukocytes 78 % 42-75 Automated blood lymphocytes/100 leukocytes 11 % 12-44 Blood monocytes/100 leukocytes 11 % 0-12 Automated blood eosinophils/100 leukocytes 1 % 0-10 Automated blood basophils/100 leukocytes 0 % 0-10 Blood neutrophils automated count (number/volume) 7.6 10*3 1.8-7.8 Blood lymphocytes automated count (number/volume) 1.0 10*3 1.0-4.0 Blood monocytes automated count (number/volume) 1. 0 10*3 0.0-1.0 Automated eosinophil count 0.1 10*3/uL 0 .0-0.3 Automated blood basophil count (count/volume) 0.0 10*3/uL 0.0-0.1 Comprehensive metabolic panel - 04/30/19 04:35 Serum or plasma sodium measurement (moles/volume) 140 mmol/L 135-145 Serum or plasma potassium measurement (moles/volume) 3.2 mmol/L 3.6-5.0 Serum or plasma chloride measurement (moles/volume) 105 mmol/L 98-107 Carbon dioxide 23 mmol/L 21-32 Serum or plasma anion gap determination (moles/volume) 12 mmol/L 5-14 Serum or plasma urea nitrogen measurement (mass/volume ) 8 mg/dL 7-18 Serum or plasma creatinine measurement (mass/volume) 0.88 mg/dL 0.60-1.30 Serum or plasma urea nitrogen/creatinine mass ratio 9 NRG Serum or plasma creatinine measurement w ith calculation of estimated glomerular filtration rate > NRG Serum or plasma glucose measurement (mass/volume) 100 mg/dL 70-105 Serum or plasma calcium measurement (mass/volume) 9.4 mg/dL 8.5-10.1 Serum or plasma total bilirubin measurement (mass/volu me) 1.4 mg/dL 0.1-1.0 Serum or plasma alkaline phosphatase mahin surement (enzymatic activity/volume) 51 U/L 40-136 Serum or plasma aspartate aminotransfera se measurement (enzymatic activity/volume) 27 U/L 5-34 Serum or plasma alanine aminotransferase measurement (enzymatic activity/volume) 16 U/L 0-55 Serum or plasma protein measurement (mass/volume) 6.7 g/dL 6.4-8.2 Serum or plasma albumin measurement (mass/volume) 3.7 g/dL 3.2-4.5 CALCIUM CORRECTED 9.6 mg/dL 8.5-10.1 Serum or plasma phosphate measurement (m ass/volume) - 04/30/19 04:35 Serum or plasma phosphate measurement (mass/volume) 3.3 mg/dL 2.3-4.7 Magnesium - 04/30/19 04:35 Magnesium 1.5 mg/dL 1.6-2.4 Lipid 1996 panel - 04/30/19 04:35 Serum or plasma triglyceride measurement (mass/volume) 81 mg/dL <150 Serum or plasma cholesterol measurement (mass/volume) 162 mg/dL < 200 Serum or plasma cholesterol in HDL measurement (mass/v olume) 49 mg/dL 40-60 Cholesterol in LDL [mass/volume] in serum or plasma by direct assay 110 mg/dL 1-129 Serum or plasma cholesterol in VLDL measurement (mass/ volume) 16 mg/dL 5-40 THYROID STIMULATING HORMONE - 04/30/19 0 4:35 THYROID STIMULATING HORMONE 2.56 u[iU]/mL 0.35-4.94 Blood lactic acid measurement (moles/vol ume) - 04/30/19 11:30 Blood lactic acid measurement (moles/volume) 1.37 mmol/L 0.50-2.00 Arterial blood gas measurement - 0 11:50 Blood pCO2 30 mm[Hg] 35-45 Blood pO2 61 mm[Hg] 79-93 Arterial blood bicarbonate measurement (moles/volume) 24 mmol/L 23-27 Arterial blood base excess by calculation 0.6 mmol /L -2.5-2.5 Arterial blood oxygen saturation measurement 94 % 94-100 * Inhaled oxygen flow rate 30% NRG Arterial blood pH measurement with patient temperature correction 7.50 7.37-7.43 Arterial blood carbon dioxide, total measurement (mole s/volume) 24.6 mmol/L 21.0-31.0 Body site RIGHT RADIAL NRG Assessment of wrist artery patency prior to arterial p uncture POSITIVE NRG Setting of ventilation mode NO NR G Measurement of body temperature 36.6 NRG Serum or plasma troponin i.cardiac measu rement (mass/volume) - 04/30/19 12:50 Serum or plasma troponin i.cardiac measurement (mass/v olume) < ng/mL <0.028 Complete blood count (CBC) with automate d white blood cell (WBC) differential - 05/01/19 03:36 Blood leukocytes automated count (number/volume) 12.0 10*3/uL 4.3-11.0 Blood erythrocytes automated count (number/volume) 6.07 10*6/uL 4.35-5.85 Venous blood hemoglobin measurement (mass/volume) 19.1 g/dL 13.3-17.7 Blood hematocrit (volume fraction) 55 % 40-54 Automated erythrocyte mean corpuscular volume 91 [ foz_us] 80-99 Automated erythrocyte mean corpuscular h emoglobin (mass per erythrocyte) 32 pg 25-34 Automated erythrocyte mean corpuscular h emoglobin concentration measurement (mass/volume) 35 g/dL 32-36 Automated erythrocyte distribution width ratio 14. 1 % 10.0- 14.5 Automated blood platelet count (count/volume) 246 10*3/uL 130-400 Automated blood platelet mean volume measurement 11.3 [foz_us] 7.4-10.4 Automated blood neutrophils/100 leukocytes 77 % 42-75 Automated blood lymphocytes/100 leukocytes 11 % 12-44 Blood monocytes/100 leukocytes 11 % 0-12 Automated blood eosinophils/100 leukocytes 0 % 0-10 Automated blood basophils/100 leukocytes 1 % 0-10 Blood neutrophils automated count (number/volume) 9.2 10*3 1.8-7.8 Blood lymphocytes automated count (number/volume) 1.3 10*3 1.0-4.0 Blood monocytes automated count (number/volume) 1. 4 10*3 0.0-1.0 Automated eosinophil count 0.1 10*3/uL 0 .0-0.3 Automated blood basophil count (count/volume) 0.1 10*3/uL 0.0-0.1 Whole blood basic metabolic panel - 04/19 06/05 03:36 Serum or plasma sodium measurement (moles/volume) 139 mmol/L 135-145 Serum or plasma potassium measurement (moles/volume) 3.8 mmol/L 3.6-5.0 Serum or plasma chloride measurement (moles/volume) 106 mmol/L 98-107 Carbon dioxide 20 mmol/L 21-32 Serum or plasma anion gap determination (moles/volume) 13 mmol/L 5-14 Serum or plasma urea nitrogen measurement (mass/volume ) 12 mg/dL 7-18 Serum or plasma creatinine measurement (mass/volume) 1.00 mg/dL 0.60-1.30 Serum or plasma urea nitrogen/creatinine mass ratio 12 NRG Serum or plasma creatinine measurement w ith calculation of estimated glomerular filtration rate > NRG Serum or plasma glucose measurement (mass/volume) 101 mg/dL 70-105 Serum or plasma calcium measurement (mass/volume) 8.8 mg/dL 8.5-10.1 Serum or plasma phosphate measurement (m ass/volume) - 05/01/19 03:36 Serum or plasma phosphate measurement (mass/volume) 3.8 mg/dL 2.3-4.7 Magnesium - 05/01/19 03:36 Magnesium 1.8 mg/dL 1.6-2.4 Serum or plasma uric acid measurement (m ass/volume) - 05/01/19 03:36 Serum or plasma uric acid measurement (mass/volume) 4.5 mg/dL 2.6-7.2 Complete urinalysis with reflex to cultu re - 05/01/19 08:10 Urine color determination YELLOW NRG Urine clarity determination CLEAR NR G Urine pH measurement by test strip 7.5 5-9 Specific gravity of urine by test strip 1.015 1.016-1.022 Urine protein assay by test strip, semi-quantitative NEGATIVE NEGATIVE Urine glucose detection by automated test strip NE GATIVE NEGATIVE Erythrocytes detection in urine sediment by light micr oscopy 1+ NEGATIVE Urine ketones detection by automated test strip TR MOLLY NEGATIVE Urine nitrite detection by test strip NEGATIVE NEGATIVE Urine total bilirubin detection by test strip NEGA TIVE NEGATIVE Urine urobilinogen measurement by automated test strip (mass/volume) 0.2 mg/dL < = 1.0 Urine leukocyte esterase detection by dipstick NEG ATIVE NEGATIVE Automated urine sediment erythrocyte cou nt by microscopy (number/high power field) [HPF] NRG Automated urine sediment leukocyte count by microscopy (number/high power field) [HPF] NRG Bacteria detection in urine sediment by light microsco py NEGATIVE NRG Squamous epithelial cells detection in u rine sediment by light microscopy NONE NRG Crystals detection in urine sediment by light microsco py NONE NRG Casts detection in urine sediment by light microscopy NONE NRG Mucus detection in urine sediment by light microscopy NEGATIVE NRG Complete urinalysis with reflex to culture NO NRG Complete blood count (CBC) with automate d white blood cell (WBC) differential - 05/02/19 03:15 Blood leukocytes automated count (number/volume) 11.6 10*3/uL 4.3-11.0 Blood erythrocytes automated count (number/volume) 5.98 10*6/uL 4.35-5.85 Venous blood hemoglobin measurement (mass/volume) 18.5 g/dL 13.3-17.7 Blood hematocrit (volume fraction) 55 % 40-54 Automated erythrocyte mean corpuscular volume 93 [ foz_us] 80-99 Automated erythrocyte mean corpuscular h emoglobin (mass per erythrocyte) 31 pg 25-34 Automated erythrocyte mean corpuscular h emoglobin concentration measurement (mass/volume) 33 g/dL 32-36 Automated erythrocyte distribution width ratio 14. 3 % 10.0- 14.5 Automated blood platelet count (count/volume) 272 10*3/uL 130-400 Automated blood platelet mean volume measurement 11.2 [foz_us] 7.4-10.4 Automated blood neutrophils/100 leukocytes 69 % 42-75 Automated blood lymphocytes/100 leukocytes 15 % 12-44 Blood monocytes/100 leukocytes 14 % 0-12 Automated blood eosinophils/100 leukocytes 2 % 0-10 Automated blood basophils/100 leukocytes 0 % 0-10 Blood neutrophils automated count (number/volume) 8.0 10*3 1.8-7.8 Blood lymphocytes automated count (number/volume) 1.7 10*3 1.0-4.0 Blood monocytes automated count (number/volume) 1. 6 10*3 0.0-1.0 Automated eosinophil count 0.2 10*3/uL 0 .0-0.3 Automated blood basophil count (count/volume) 0.1 10*3/uL 0.0-0.1 Whole blood basic metabolic panel - 04/19 07/06 03:15 Serum or plasma sodium measurement (moles/volume) 140 mmol/L 135-145 Serum or plasma potassium measurement (moles/volume) 3.7 mmol/L 3.6-5.0 Serum or plasma chloride measurement (moles/volume) 107 mmol/L 98-107 Carbon dioxide 21 mmol/L 21-32 Serum or plasma anion gap determination (moles/volume) 12 mmol/L 5-14 Serum or plasma urea nitrogen measurement (mass/volume ) 15 mg/dL 7-18 Serum or plasma creatinine measurement (mass/volume) 1.01 mg/dL 0.60-1.30 Serum or plasma urea nitrogen/creatinine mass ratio 15 NRG Serum or plasma creatinine measurement w ith calculation of estimated glomerular filtration rate > NRG Serum or plasma glucose measurement (mass/volume) 87 mg/dL 70-105 Serum or plasma calcium measurement (mass/volume) 8.8 mg/dL 8.5-10.1 Serum or plasma phosphate measurement (m ass/volume) - 05/02/19 03:15 Serum or plasma phosphate measurement (mass/volume) 2.9 mg/dL 2.3-4.7 Magnesium - 05/02/19 03:15 Magnesium 1.7 mg/dL 1.6-2.4 Vancomycin trough - 05/02/19 11:10 Vancomycin trough 14.8 ug/mL 10.0-20.0 Serum iron and total iron binding capaci ty panel - 05/02/19 13:09 TIBC 219 % 280-380 UIBC 182 % 55-450 Serum or plasma iron measurement (mass/volume) 37 % 40-180 Total iron binding capacity and transferrin saturation measurement 17 % 15-50 Serum or plasma ferritin measurement (mass/volume) 471.1 % 32.0-356.0 Pathologist review of blood test by harshad ent - 05/03/19 04:50 Blood leukocytes automated count (number/volume) 9.9 10*3/uL 4.3-11.0 Blood erythrocytes automated count (number/volume) 5.68 10*6/uL 4.35-5.85 Venous blood hemoglobin measurement (mass/volume) 17.9 g/dL 13.3-17.7 Blood hematocrit (volume fraction) 52 % 40-54 Automated erythrocyte mean corpuscular volume 92 [ foz_us] 80-99 Automated erythrocyte mean corpuscular h emoglobin (mass per erythrocyte) 32 pg 25-34 Automated erythrocyte mean corpuscular h emoglobin concentration measurement (mass/volume) 34 g/dL 32-36 Automated erythrocyte distribution width ratio 13. 7 % 10.0- 14.5 Automated blood platelet count (count/volume) 304 10*3/uL 130-400 Automated blood platelet mean volume measurement 11.6 [foz_us] 7.4-10.4 Automated blood neutrophils/100 leukocytes 66 % 42-75 Automated blood lymphocytes/100 leukocytes 16 % 12-44 Blood monocytes/100 leukocytes 10 % NRG Automated blood eosinophils/100 leukocytes 5 % 0-10 Automated blood basophils/100 leukocytes 1 % 0-10 Blood neutrophils automated count (number/volume) 6.5 10*3 1.8-7.8 Blood lymphocytes automated count (number/volume) 1.6 10*3 1.0-4.0 Blood monocytes automated count (number/volume) 1. 2 10*3 0.0-1.0 Automated eosinophil count 0.5 10*3/uL 0 .0-0.3 Automated blood basophil count (count/volume) 0.1 10*3/uL 0.0-0.1 Manual blood segmented neutrophils/100 leukocytes 68 % NRG Manual blood lymphocytes/100 leukocytes 17 % NRG Manual eosinophils/100 leukocytes in nose 5 % NRG Blood reticulocytes count (number/volume) 29 10*9/ L 24-90 Blood reticulocytes/100 erythrocytes 0.51 % 0.50-2.40 Blood carboxyhemoglobin/total hemoglobin - 05/03/19 04:50 Blood carboxyhemoglobin/total hemoglobin 2.6 % 0.5-2.5 Whole blood basic metabolic panel - 04/19 08/05 04:50 Serum or plasma sodium measurement (moles/volume) 139 mmol/L 135-145 Serum or plasma potassium measurement (moles/volume) 3.4 mmol/L 3.6-5.0 Serum or plasma chloride measurement (moles/volume) 107 mmol/L 98-107 Carbon dioxide 18 mmol/L 21-32 Serum or plasma anion gap determination (moles/volume) 14 mmol/L 5-14 Serum or plasma urea nitrogen measurement (mass/volume ) 16 mg/dL 7-18 Serum or plasma creatinine measurement (mass/volume) 0.88 mg/dL 0.60-1.30 Serum or plasma urea nitrogen/creatinine mass ratio 18 NRG Serum or plasma creatinine measurement w ith calculation of estimated glomerular filtration rate > NRG Serum or plasma glucose measurement (mass/volume) 82 mg/dL 70-105 Serum or plasma calcium measurement (mass/volume) 8.9 mg/dL 8.5-10.1 [id number] - 05/03/19 04:50 Erythropoietin 4.3 % 2.5-18.4 Blood or tissue JAK2 gene p.V617F detect ion by molecular genetics method - 05/03/19 04:50 JAK2 V617F mutation detection Not Detected NRG [id number] - 05/03/19 04:50 BCR-ABL gene translocation detection See Report NRG Complete urinalysis with reflex to cultu re - 08/09/19 07:27 Urine color determination YELLOW NRG Urine clarity determination CLOUDY NR G Urine pH measurement by test strip 6.0 5-9 Specific gravity of urine by test strip 1.015 1.016-1.022 Urine protein assay by test strip, semi-quantitative TRACE NEGATIVE Urine glucose detection by automated test strip NE GATIVE NEGATIVE Erythrocytes detection in urine sediment by light micr oscopy NEGATIVE NEGATIVE Urine ketones detection by automated test strip TR MOLLY NEGATIVE Urine nitrite detection by test strip NEGATIVE NEGATIVE Urine total bilirubin detection by test strip NEGA TIVE NEGATIVE Urine urobilinogen measurement by automated test strip (mass/volume) 0.2 mg/dL < = 1.0 Urine leukocyte esterase detection by dipstick NEG ATIVE NEGATIVE Automated urine sediment erythrocyte cou nt by microscopy (number/high power field) RARE NRG Automated urine sediment leukocyte count by microscopy (number/high power field) [HPF] NRG Bacteria detection in urine sediment by light microsco py FEW NRG Squamous epithelial cells detection in u rine sediment by light microscopy 0-2 NRG Crystals detection in urine sediment by light microsco py PRESENT NRG Casts detection in urine sediment by light microscopy NONE NRG Mucus detection in urine sediment by light microscopy SMALL NRG Complete urinalysis with reflex to culture YES NRG Amorphous sediment detection in urine sediment by ligh t microscopy FEW RIANA URATES NRG Bacterial urine culture - 08/09/19 07:27 Bacterial urine culture [id number] NRG COLONY COUNT 60,000 cfu/ml NRG SUSCEPTIBILITY SEE COMMENTS NR LIPID PANEL - 08/21/19 11:24 CHOLESTEROL, TOTAL 138 mg/dL <200 HDL CHOLESTEROL 43 mg/dL > OR = 40 TRIGLYCERIDES 102 mg/dL <150 LDL-CHOLESTEROL 76 mg/dL (calc) NRG CHOL/HDLC RATIO 3.2 (calc) <5.0 NON HDL CHOLESTEROL 95 mg/dL (calc) <130 CMP - 08/21/19 11:24 GLUCOSE 92 mg/dL 65-99 UREA NITROGEN (BUN) 16 mg/dL 7-25 CREATININE 1.39 mg/dL 0.70-1.18 eGFR NON-AFR. FILIPINO 49 mL/min/1.73m2 > OR = 60 eGFR 56 mL/min/1.73m2 > OR = 60 BUN/CREATININE RATIO 12 (calc) 6-22 SODIUM 136 mmol/L 135-146 POTASSIUM 4.7 mmol/L 3.5-5.3 CHLORIDE 100 mmol/L 98-110 CARBON DIOXIDE 25 mmol/L 20-32 CALCIUM 9.4 mg/dL 8.6-10.3 PROTEIN, TOTAL 6.4 g/dL 6.1-8.1 ALBUMIN 3.8 g/dL 3.6-5.1 GLOBULIN 2.6 g/dL (calc) 1.9-3.7 ALBUMIN/GLOBULIN RATIO 1.5 (calc) 1.0-2. 5 BILIRUBIN, TOTAL 0.9 mg/dL 0.2-1.2 ALKALINE PHOSPHATASE 119 U/L 35-144 AST 27 U/L 10-35 ALT 28 U/L 9-46 CBC - 08/21/19 11:24 WHITE BLOOD CELL COUNT 10.7 Thousand/uL 3.8-10.8 RED BLOOD CELL COUNT 4.49 Million/uL 4.2 0-5.80 HEMOGLOBIN 13.0 g/dL 13.2-17.1 HEMATOCRIT 39.9 % 38.5-50.0 MCV 88.9 fL 80.0-100.0 MCH 29.0 pg 27.0-33.0 MCHC 32.6 g/dL 32.0-36.0 RDW 13.1 % 11.0-15.0 PLATELET COUNT 442 Thousand/uL 140-400 MPV 10.6 fL 7.5-12.5 ABSOLUTE NEUTROPHILS 7244 cells/uL 1500- 7800 ABSOLUTE LYMPHOCYTES 1905 cells/uL 850-3 900 ABSOLUTE MONOCYTES 749 cells/uL 200-950 ABSOLUTE EOSINOPHILS 717 cells/uL 15-500 ABSOLUTE BASOPHILS 86 cells/uL 0-200 NEUTROPHILS 67.7 % NRG LYMPHOCYTES 17.8 % NRG MONOCYTES 7.0 % NRG EOSINOPHILS 6.7 % NRG BASOPHILS 0.8 % NRG Complete urinalysis with reflex to cultu re - 09/01/19 10:30 Urine color determination YELLOW NRG Urine clarity determination CLEAR NR G Urine pH measurement by test strip 7.5 5-9 Specific gravity of urine by test strip 1.010 1.016-1.022 Urine protein assay by test strip, semi-quantitative NEGATIVE NEGATIVE Urine glucose detection by automated test strip NE GATIVE NEGATIVE Erythrocytes detection in urine sediment by light micr oscopy NEGATIVE NEGATIVE Urine ketones detection by automated test strip NE GATIVE NEGATIVE Urine nitrite detection by test strip NEGATIVE NEGATIVE Urine total bilirubin detection by test strip NEGA TIVE NEGATIVE Urine urobilinogen measurement by automated test strip (mass/volume) 0.2 mg/dL < = 1.0 Urine leukocyte esterase detection by dipstick NEG ATIVE NEGATIVE Automated urine sediment erythrocyte cou nt by microscopy (number/high power field) NONE NRG Automated urine sediment leukocyte count by microscopy (number/high power field) [HPF] NRG Bacteria detection in urine sediment by light microsco py NEGATIVE NRG Squamous epithelial cells detection in u rine sediment by light microscopy RARE NRG Crystals detection in urine sediment by light microsco py NONE NRG Casts detection in urine sediment by light microscopy NONE NRG Mucus detection in urine sediment by light microscopy NEGATIVE NRG Complete urinalysis with reflex to culture NO NRG CMP - 10/23/19 11:36 GLUCOSE 96 mg/dL 65-99 UREA NITROGEN (BUN) 35 mg/dL 7-25 CREATININE 2.40 mg/dL 0.70-1.18 eGFR NON-AFR. FILIPINO 25 mL/min/1.73m2 > OR = 60 eGFR 29 mL/min/1.73m2 > OR = 60 BUN/CREATININE RATIO 15 (calc) 6-22 SODIUM 135 mmol/L 135-146 POTASSIUM 4.6 mmol/L 3.5-5.3 CHLORIDE 98 mmol/L 98-110 CARBON DIOXIDE 26 mmol/L 20-32 CALCIUM 10.0 mg/dL 8.6-10.3 PROTEIN, TOTAL 7.4 g/dL 6.1-8.1 ALBUMIN 4.4 g/dL 3.6-5.1 GLOBULIN 3.0 g/dL (calc) 1.9-3.7 ALBUMIN/GLOBULIN RATIO 1.5 (calc) 1.0-2. 5 BILIRUBIN, TOTAL 0.6 mg/dL 0.2-1.2 ALKALINE PHOSPHATASE 73 U/L 35-144 AST 26 U/L 10-35 ALT 42 U/L 9-46 Complete blood count (CBC) with automate d white blood cell (WBC) differential - 10/30/19 13:10 Blood leukocytes automated count (number/volume) 11.1 10*3/uL 4.3-11.0 Blood erythrocytes automated count (number/volume) 3.40 10*6/uL 4.35-5.85 Venous blood hemoglobin measurement (mass/volume) 10.4 g/dL 13.3-17.7 Blood hematocrit (volume fraction) 32 % 40-54 Automated erythrocyte mean corpuscular volume 93 [ foz_us] 80-99 Automated erythrocyte mean corpuscular h emoglobin (mass per erythrocyte) 31 pg 25-34 Automated erythrocyte mean corpuscular h emoglobin concentration measurement (mass/volume) 33 g/dL 32-36 Automated erythrocyte distribution width ratio 13. 2 % 10.0- 14.5 Automated blood platelet count (count/volume) 381 10*3/uL 130-400 Automated blood platelet mean volume measurement 10.7 [foz_us] 7.4-10.4 Automated blood neutrophils/100 leukocytes 61 % 42-75 Automated blood lymphocytes/100 leukocytes 23 % 12-44 Blood monocytes/100 leukocytes 8 % 0-12 Automated blood eosinophils/100 leukocytes 8 % 0-10 Automated blood basophils/100 leukocytes 1 % 0-10 Blood neutrophils automated count (number/volume) 6.8 10*3 1.8-7.8 Blood lymphocytes automated count (number/volume) 2.5 10*3 1.0-4.0 Blood monocytes automated count (number/volume) 0. 9 10*3 0.0-1.0 Automated eosinophil count 0.9 10*3/uL 0 .0-0.3 Automated blood basophil count (count/volume) 0.1 10*3/uL 0.0-0.1 Comprehensive metabolic panel - 10/30/19 13:10 Serum or plasma sodium measurement (moles/volume) 138 mmol/L 135-145 Serum or plasma potassium measurement (moles/volume) 4.5 mmol/L 3.6-5.0 Serum or plasma chloride measurement (moles/volume) 104 mmol/L 98-107 Carbon dioxide 24 mmol/L 21-32 Serum or plasma anion gap determination (moles/volume) 10 mmol/L 5-14 Serum or plasma urea nitrogen measurement (mass/volume ) 43 mg/dL 7-18 Serum or plasma creatinine measurement (mass/volume) 2.67 mg/dL 0.60-1.30 Serum or plasma urea nitrogen/creatinine mass ratio 16 NRG Serum or plasma creatinine measurement w ith calculation of estimated glomerular filtration rate 23 NRG Serum or plasma glucose measurement (mass/volume) 108 mg/dL 70-105 Serum or plasma calcium measurement (mass/volume) 9.3 mg/dL 8.5-10.1 Serum or plasma total bilirubin measurement (mass/volu me) 0.3 mg/dL 0.1-1.0 Serum or plasma alkaline phosphatase mahin surement (enzymatic activity/volume) 57 U/L 40-136 Serum or plasma aspartate aminotransfera se measurement (enzymatic activity/volume) 21 U/L 5-34 Serum or plasma alanine aminotransferase measurement (enzymatic activity/volume) 20 U/L 0-55 Serum or plasma protein measurement (mass/volume) 6.5 g/dL 6.4-8.2 Serum or plasma albumin measurement (mass/volume) 3.8 g/dL 3.2-4.5 CALCIUM CORRECTED 9.5 mg/dL 8.5-10.1 Serum or plasma ethanol measurement (mas s/volume) - 10/30/19 13:10 Serum or plasma ethanol measurement (mass/volume) < mg/dL <10 Encounters ACCT No. Visit Date/Time Discharge Status Pt. Type Provider Facility Loc./Unit Complaint [id number] 10/23/2019 10:45:00 10/23/2019 23:59: 59 [facility] Outpatient SELF, SIRISHA TAPIA [facility] [id number] 10/23/2019 10:45:00 Document Registration [id number] 08/21/2019 10:00:00 Document Registration [id number] 10/06/2019 14:25:00 020 23:59:59 CLS Preadmit POLLO MATHUR, OJ Rod [facility] WOUNDCARE [id number] 09/01/2019 16:09:00 23:59:59 CLS Outpatient SIRISHA COLLINS MD [facility] LAB FS N18.9 [id number] 08/09/2019 07:26:00 23:59:59 CLS Outpatient GILLIAN FOX APRN [facility] LABNPT [id number] 04/28/2019 08:52:00 14:26:00 DIS Inpatient BOYD HERNÁNDEZ DO, [facility] 4TH CHEST PAIN, MALIGNANT H [place] [id number] 11/27/2017 00:25:00 018 02:43:00 DIS Emergency MIGUEL LYNN DO [facility] ER LEFT HIP PAIN [id number] 10/30/2019 13:26:00 Document Registration
--- NOTE | 2019-10-30 13:54 | Diagnostic Imaging Report ---
PROCEDURE: CT abdomen and pelvis without contrast. TECHNIQUE: Multiple contiguous axial images were obtained through the abdomen and pelvis without the use of intravenous contrast. Auto Exposure Controls were utilized during the CT exam to meet ALARA standards for radiation dose reduction. INDICATION: Hypertension and bruising to the abdomen. COMPARISON: No prior studies are available for comparison. FINDINGS: The lung bases are clear. Tiny low density in the dome of the right lobe of the liver is noted, too small to characterize but perhaps small cysts. No other liver lesions are seen. Gallbladder is unremarkable. No biliary duct dilatation is seen. The pancreas and spleen are unremarkable apart from multiple splenic granulomas. No adrenal mass is detected. There are several punctate calcifications within both kidneys which may represent nonobstructing calculi. There also appear to be some cortical calcifications present. The infrarenal abdominal aorta is aneurysmal measuring 3.8 cm. This terminates above the bifurcation. No retroperitoneal hemorrhage is detected. The small and large bowel loops are normal caliber. There is no obstruction. There is diverticulosis of the sigmoid but no evidence of acute diverticulitis. No free fluid or fluid collection is seen. The bladder is unremarkable. Prostate is unremarkable. Compression fracture deformity involving L1 vertebral body is noted with slight retropulsion. Vertebral body is near vertebra plana. This may be chronic. No paraspinous hematoma is present at this level. There is spondylolisthesis with bilateral pars defects at L5-S1. IMPRESSION: 1. Bilateral nonobstructing nephrolithiasis. 2. Infrarenal abdominal aortic aneurysm measuring 3.8 cm AP diameter. No retroperitoneal hemorrhage is detected. 3. Uncomplicated diverticulosis. No acute features detected. Dictated by: Dictated on workstation # [id number]
[2019-10-30 14:40] LABS: AMPHETAMINE SCREEN, URINE NEGATIVE (NEGATIVE); BARBITURATE SCREEN URINE NEGATIVE (NEGATIVE); BENZODIAZEPINES SCREEN URINE NEGATIVE (NEGATIVE); CANNABINOID SCREEN, URINE NEGATIVE (NEGATIVE); COCAINE SCREEN URINE NEGATIVE (NEGATIVE); METHADONE STAT NEGATIVE (NEGATIVE); METHAMPHETAMINE SCREEN URINE S NEGATIVE (NEGATIVE); OPIATE SCREEN URINE NEGATIVE (NEGATIVE); OXYCODONE STAT NEGATIVE (NEGATIVE); PROPOXYPHENE STAT NEGATIVE (NEGATIVE); TRICYCLIC ANTIDEPRESSANTS SCRE NEGATIVE (NEGATIVE)
[2019-10-30 14:49] LABS: BACTERIA,URINE NEGATIVE /HPF; BILIRUBIN,URINE NEGATIVE (NEGATIVE); CLARITY,URINE CLEAR; COLOR,URINE YELLOW; GLUCOSE, URINE (UA) NEGATIVE (NEGATIVE); KETONES,URINE NEGATIVE (NEGATIVE); LEUKOCYTE ESTERASE ,URINE NEGATIVE (NEGATIVE); NITRITE,URINE NEGATIVE (NEGATIVE); PROTEIN,URINE NEGATIVE (NEGATIVE); SQUAMOUS EPITHELIAL CELL,UR RARE /HPF; WBC,URINE RARE /HPF
[2019-10-30] MEDS ORDERED: niCARdipine IV 50 MG in NS (IVPB) 230 ML IV STA (15:08)
[2019-10-30] MEDS ORDERED: niCARdipine IV FOR DRIP 50 MG KIT ONE (15:10)
[2019-10-30] MEDS ORDERED: NS (IVPB) 250 ML ONE (15:10)
[2019-10-30 15:55] VITALS: BP 164/84
== END 2019-10-30 16:10 | disposition short-term general hospital (02) ==
LOC: EDUNIT# 13:03 → ER FS 13:04
DX: I61.8 Other nontraumatic intracerebral hemorrhage (principal); N17.9 Acute kidney failure, unspecified; I10 Essential (primary) hypertension; F17.210 Nicotine dependence, cigarettes, uncomplicated; E78.00 Pure hypercholesterolemia, unspecified; Z86.73 Personal history of transient ischemic attack (TIA), and cerebral infarction without residual deficits; Z79.82 Long term (current) use of aspirin
CPT/HCPCS: 36415; 51702; 70450; 71045; 74176; 80053; 80306; 81000; 82962; 84484; 85025; 85610; 85730; 93005; 93041; 99285; G0480; 80320

== ENCOUNTER 2019-12-17 09:59 | Emergency (ER) | payer MEDICARE ==
[~2019-12-17] VITALS: Ht 180 cm; Wt 70.0 kg
--- NOTE | 2019-12-17 10:00 | NUR ---
UNABLE TO DO NIH DUE TO PT NOT FOLLOWING COMMANDS. DR INFANTE.
--- NOTE | 2019-12-17 10:08 | ED General ---
General Chief Complaint: Neuro-Stroke Like Symptoms Stated Complaint: POSSIBLE STROKE History of Present Illness Date Seen by Provider: Dec 17, 2019 Time Seen by Provider: 10:08 Initial Comments 79-year-old male brought in by EMS. Patient is more lethargic than normal. Patient was last acted normal yesterday. Agent with diagnosis morning with a pneumonia. He also report they increased his one of his medications yesterday his confirms this and states that when he got it all he wanted to do was sleep. EMS was concerned about a possible stroke because patient is somewhat confused and groaning a lot. Patient does have a history of strokes in the past. No reports of fever. Allergies and Home Medications Allergies Coded Allergies: lorazepam (Verified Adverse Reaction, Severe, CONFUSION, 12/17/19) Uncoded Allergies: TRAZADONE (Adverse Reaction, Severe, CONFUSION, 12/17/19) Home Medications Amlodipine Besylate 10 Mg Tablet, 10 MG PO DAILY Prescribed by: GRIS BERMUDEZ on 05/03/19 1321 Aspirin 81 Mg Tab.chew, 81 MG PO DAILY@0900 Prescribed by: GRIS BERMUDEZ on 05/03/19 1321 Atorvastatin Calcium 40 Mg Tablet, 40 MG PO DAILY Prescribed by: GRIS BERMUDEZ on 05/03/19 1321 Ibuprofen 200 Mg Capsule, 200 MG PO DAILY, (Reported) Lisinopril 20 Mg Tablet, 20 MG PO DAILY Prescribed by: GRIS BERMUDEZ on 05/03/19 1321 Metoprolol Tartrate 50 Mg Tablet, 50 MG PO BID Prescribed by: GRIS BERMUDEZ on 05/03/19 1321 Nitroglycerin 0.4 Mg Tab.subl, 0.4 MG SL UD PRN for CHEST PAIN (ANGINA) Prescribed by: GRIS BERMUDEZ on 05/03/19 1321 Tamsulosin HCl 0.4 Mg Cap, 0.4 MG PO DAILY Prescribed by: GRIS BERMUDEZ on 05/03/19 1321 Patient Home Medication List Home Medication List Reviewed: Yes Review of Systems Review of Systems Constitutional: see HPI, malaise Respiratory: see HPI, cough Cardiovascular: no symptoms reported Gastrointestinal: no symptoms reported Genitourinary: no symptoms reported Musculoskeletal: no symptoms reported Skin: no symptoms reported Psychiatric/Neurological: Weakness Patient decreased verbal communication so limited review of systems Past Otntaoj-Pdsrlk-Vgfowc Hx Past Med/Social Hx: Reviewed Nursing Past Med/Soc Hx Patient Social History Alcohol Beverage of Choice: Beer Type Used: Cigarettes 2nd Hand Smoke Exposure: Yes Recent Hopitalizations: No Seasonal Allergies Seasonal Allergies: No Past Medical History Surgeries: Yes (EGD/ESOPHAGEAL DILATION) Appendectomy, Vascular Surgery Respiratory: No Cardiac: No High Cholesterol, Hypertension, Peripheral Vascular Neurological: Yes Stroke Genitourinary: No Gastrointestinal: Yes (ESOPHAGEAL STRICTURE) Gastroesophageal Reflux Musculoskeletal: No Endocrine: No HEENT: No Cancer: No Psychosocial: No Integumentary: No Blood Disorders: No Physical Exam Vital Signs Vital Signs - First Documented 12/17/19 10:00 Temp 36.5 Pulse 80 Resp 18 B/P (MAP) 200/155 (170) Capillary Refill : Height, Weight, BMI Height: 6'0" Weight: 145lbs. oz. 65.478878cp; 31.00 BMI Method:Stated General Appearance: Cachetic Eyes: Bilateral Eye Normal Inspection Respiratory: No Accessory Muscle Use, Decreased Breath Sounds (mild diffuse) Cardiovascular: Regular Rate, Rhythm, No Edema Gastrointestinal: Non Tender, Soft Extremity: No Pedal Edema Neurologic/Psychiatric: No Motor Weakness; Other (patient will respond to stimuli with groans but does not verbally communicate) Focused Exam Lactate Level 12/17/19 10:10: Lactic Acid Level 1.71 Lactic Acid Level Laboratory Tests Test 12/17/19 10:10 Lactic Acid Level 1.71 MMOL/L (0.50-2.00) Progress/Results/Core Measures Suspected Sepsis SIRS Temperature: Pulse: Respiratory Rate: Laboratory Tests 12/17/19 10:10: White Blood Count 23.8H Blood Pressure / Mean: 12/17/19 10:10: Lactic Acid Level 1.71 Laboratory Tests 12/17/19 10:10: Creatinine 2.88H, Platelet Count 461H, Total Bilirubin 0.5 Results/Orders Lab Results Laboratory Tests Test 12/17/19 10:10 12/17/19 10:15 Range/Units White Blood Count 23.8 H 4.3-11.0 10^3/uL Red Blood Count 4.21 L 4.30-5.52 10^6/uL Hemoglobin 12.6 L 13.3-17.7 g/dL Hematocrit 39 L 40-54 % Mean Corpuscular Volume 92 80-99 fL Mean Corpuscular Hemoglobin 30 25-34 pg Mean Corpuscular Hemoglobin Concent 32 32-36 g/dL Red Cell Distribution Width 12.4 10.0-14.5 % Platelet Count 461 H 130-400 10^3/uL Mean Platelet Volume 10.8 9.0-12.2 fL Immature Granulocyte % (Auto) 1 % Neutrophils (%) (Auto) 87 H 42-75 % Lymphocytes (%) (Auto) 6 L 12-44 % Monocytes (%) (Auto) 6 0-12 % Eosinophils (%) (Auto) 0 0-10 % Basophils (%) (Auto) 0 0-10 % Neutrophils # (Auto) 20.8 H 1.8-7.8 10^3/uL Lymphocytes # (Auto) 1.4 1.0-4.0 10^3/uL Monocytes # (Auto) 1.4 H 0.0-1.0 10^3/uL Eosinophils # (Auto) 0.0 0.0-0.3 10^3/uL Basophils # (Auto) 0.1 0.0-0.1 10^3/uL Immature Granulocyte # (Auto) 0.1 0.0-0.1 10^3/uL Neutrophils % (Manual) 91 % Lymphocytes % (Manual) 5 % Monocytes % (Manual) 3 % Eosinophils % (Manual) 0 % Basophils % (Manual) 0 % Band Neutrophils 1 % Blood Morphology Comment NORMAL Sodium Level 146 H 135-145 MMOL/L Potassium Level 4.8 3.6-5.0 MMOL/L Chloride Level 107 98-107 MMOL/L Carbon Dioxide Level 24 21-32 MMOL/L Anion Gap 15 H 5-14 MMOL/L Blood Urea Nitrogen 48 H 7-18 MG/DL Creatinine 2.88 H 0.60-1.30 MG/DL Estimat Glomerular Filtration Rate 21 BUN/Creatinine Ratio 17 Glucose Level 140 H 70-105 MG/DL Lactic Acid Level 1.71 0.50-2.00 MMOL/L Calcium Level 10.1 8.5-10.1 MG/DL Corrected Calcium 10.2 H 8.5-10.1 MG/DL Total Bilirubin 0.5 0.1-1.0 MG/DL Aspartate Amino Transf (AST/SGOT) 35 H 5-34 U/L Alanine Aminotransferase (ALT/SGPT) 18 0-55 U/L Alkaline Phosphatase 65 40-136 U/L Total Protein 7.9 6.4-8.2 GM/DL Albumin 3.9 3.2-4.5 GM/DL Urine Color YELLOW Urine Clarity CLEAR Urine pH 5.5 5-9 Urine Specific [place] >=1.030 1.016-1.022 Urine Protein 2+ H NEGATIVE Urine Glucose (UA) NEGATIVE NEGATIVE Urine Ketones NEGATIVE NEGATIVE Urine Nitrite NEGATIVE NEGATIVE Urine Bilirubin NEGATIVE NEGATIVE Urine Urobilinogen 0.2 < = 1.0 MG/DL Urine Leukocyte Esterase NEGATIVE NEGATIVE Urine RBC (Auto) 3+ H NEGATIVE Urine RBC 0-2 /HPF Urine WBC NONE /HPF Urine Squamous Epithelial Cells RARE /HPF Urine Crystals PRESENT H /LPF Urine Amorphous Sediment MOD RIANA URATES H /LPF Urine Bacteria TRACE /HPF Urine Casts NONE /LPF Urine Mucus NEGATIVE /LPF Urine Culture Indicated NO My Orders Orders - HERNÁNDEZ,KELSY L DO Cbc With Automated Diff (12/17/19 10:08) Comprehensive Metabolic Panel (12/17/19 10:08) Lactic Acid Analyzer (12/17/19 10:08) Ua Culture If Indicated (12/17/19 10:08) Chest 1 View, Ap/Pa Only (12/17/19 10:08) Ct Head Wo-R/O Stroke (12/17/19 10:08) Manual Differential (12/17/19 10:10) Cefepime Injection (Maxipime Injection) (12/17/19 10:45) Blood Culture (12/17/19 10:50) Medications Given in ED Current Medications Medications Dose Ordered Sig/Gifty Route Start Time Stop Time Status Last Admin Dose Admin Cefepime HCl 1000 mg/Sterile Water 10 ml @ 200 mls/hr ONCE ONCE IV 12/17/19 10:45 12/17/19 10:47 DC 12/17/19 11:50 200 MLS/HR Vital Signs/I&O 12/17/19 10:00 Temp 36.5 Pulse 80 Resp 18 B/P (MAP) 200/155 (170) Capillary Refill : Progress Note : Time: 11:49 Diagnostic Imaging Diagonstic Imaging: Xray, CT Plain Films/CT/US/NM/MRI: chest, head Comments [facility]. [place], [place] NAME: SOULEYMANE DAUGHERTY MED REC#: [id number] PT STATUS: REG ER : 1940 PHYSICIAN: KELSY HERNÁNDEZ DO ADMIT DATE: 12/17/19/ER Draft Date of Exam:12/17/19 CT HEAD WO-R/O STROKE EXAMINATION: CT head without contrast. TECHNIQUE: Multiple contiguous axial images were obtained through the brain without the use of intravenous contrast. All CT scans use one or more of the following dose optimizing techniques: automated exposure control, MA and/or KvP adjustment based on a patient size and exam type, or iterative reconstruction. HISTORY: Neurologic deficit COMPARISON: None available. FINDINGS: The coleman-white matter differentiation is normal. No mass effect or midline shift. There is age related cerebral atrophy with ex vacuo dilation of the ventricles. Periventricular white matter hypoattenuation is in keeping with chronic small vessel ischemic changes. Basilar cisterns are patent. There are no intra- or extra-axial fluid collections. There is no intracranial hemorrhage. The orbits are normal. There is a right anterior ethmoid air cell disease. Mastoid air cells are clear. No soft tissue abnormality is seen. No osseus lesions or fractures are seen. IMPRESSION: 1. No acute intracranial abnormality. [facility], [place] NAME: SOULEYMANE DAUGHERTY SR MED REC#: [id number] PT STATUS: REG ER : 1940 PHYSICIAN: KELSY HERNÁNDEZ DO ADMIT DATE: 12/17/19/ER Draft Date of Exam:12/17/19 CHEST 1 VIEW, AP/PA ONLY INDICATION: Lethargy. TECHNIQUE: Frontal chest obtained at 10:53 a.m. and is compared to 10/30/2019. FINDINGS: Heart is normal in size. The mediastinal silhouette is unremarkable. There are chronic-appearing increased interstitial markings which are similar to the prior study. There is no focal infiltrate or pneumothorax or pleural fluid. IMPRESSION: Chronic-appearing increased interstitial markings with no acute process in the chest. Departure Impression Primary Impression: Bronchitis Additional Impression: Medication reaction Qualified Codes: T50.905A - Adverse effect of unspecified drugs, medicaments and biological substances, initial encounter Disposition: HOME, SELF-CARE Condition: Stable Departure-Patient Inst. Referrals: SELF,SIRISHA MATHUR (PCP/Family) Primary Care Physician Patient Instructions: Adverse Drug Reactions, Adult (DC) Add. Discharge Instructions: Continue already prescribed antibiotic All discharge instructions reviewed with patient and/or family. Voiced understanding. KELSY HERNÁNDEZ DO Dec 17, 2019 10:08
[2019-12-17 10:21] LABS: BASOPHILS # (AUTO) 0.1 10^3/uL (0.0-0.1); BASOPHILS % (AUTO) 0 % (0-10); EOSINOPHILS % (AUTO) 0 % (0-10); HEMATOCRIT 39 % (40-54); HEMOGLOBIN 12.6 g/dL (13.3-17.7); LYMPHOCYTES # (AUTO) 1.4 10^3/uL (1.0-4.0); LYMPHOCYTES % (AUTO) 6 % (12-44); MEAN CORPUSCULAR HEMOGLOBIN 30 pg (25-34); MEAN CORPUSCULAR HGB CONC 32 g/dL (32-36); MEAN CORPUSCULAR VOLUME 92 fL (80-99); MEAN PLATELET VOLUME 10.8 fL (9.0-12.2); MONOCYTES # (AUTO) 1.4 10^3/uL (0.0-1.0); MONOCYTES % (AUTO) 6 % (0-12); NEUTROPHILS # (AUTO) 20.8 10^3/uL (1.8-7.8); NEUTROPHILS % (AUTO) 87 % (42-75); PLATELET COUNT 461 10^3/uL (130-400); WHITE BLOOD COUNT 23.8 10^3/uL (4.3-11.0)
[2019-12-17 10:26] LABS: BILIRUBIN,URINE NEGATIVE (NEGATIVE); CLARITY,URINE CLEAR; COLOR,URINE YELLOW; GLUCOSE, URINE (UA) NEGATIVE (NEGATIVE); KETONES,URINE NEGATIVE (NEGATIVE); LEUKOCYTE ESTERASE ,URINE NEGATIVE (NEGATIVE); NITRITE,URINE NEGATIVE (NEGATIVE); PH,URINE 5.5 (5-9); PROTEIN,URINE 2+ (NEGATIVE)
[2019-12-17 10:32] LABS: ALBUMIN 3.9 GM/DL (3.2-4.5); POTASSIUM 4.8 MMOL/L (3.6-5.0)
[2019-12-17 10:33] LABS: CALCIUM 10.1 MG/DL (8.5-10.1)
[2019-12-17 10:35] LABS: TOTAL PROTEIN 7.9 GM/DL (6.4-8.2)
[2019-12-17 10:36] LABS: BILIRUBIN,TOTAL 0.5 MG/DL (0.1-1.0)
[2019-12-17 10:38] LABS: CREATININE SERUM 2.88 MG/DL (0.60-1.30)
[2019-12-17 10:40] LABS: AMORPHOUS SEDIMENT,UR MOD AMOR URATES /LPF; BACTERIA,URINE TRACE /HPF; RBC,URINE 0-2 /HPF; SQUAMOUS EPITHELIAL CELL,UR RARE /HPF
[2019-12-17] MEDS ORDERED: CEFEPIME INJECTION 1,000 MG in WATER (STERILE) FOR INJECTION 10 ML IV ONE (10:45)
[2019-12-17 10:47] LABS: BAND NEUTROPHILS 1 %; BASOPHILS % (MANUAL) 0 %; EOSINOPHILS % (MANUAL) 0 %; LYMPHOCYTES % (MANUAL) 5 %; MONOCYTES % (MANUAL) 3 %; NEUTROPHILS % (MANUAL) 91 %
[2019-12-17 10:48] LABS: RBC MORPH NORMAL
--- NOTE | 2019-12-17 10:48 | NUR ---
PT'S UPDATED BY PHONE.
--- NOTE | 2019-12-17 10:59 | Diagnostic Imaging Report ---
EXAMINATION: CT head without contrast. TECHNIQUE: Multiple contiguous axial images were obtained through the brain without the use of intravenous contrast. All CT scans use one or more of the following dose optimizing techniques: automated exposure control, MA and/or KvP adjustment based on a patient size and exam type, or iterative reconstruction. HISTORY: Neurologic deficit COMPARISON: None available. FINDINGS: The coleman-white matter differentiation is normal. No mass effect or midline shift. There is age related cerebral atrophy with ex vacuo dilation of the ventricles. Periventricular white matter hypoattenuation is in keeping with chronic small vessel ischemic changes. Basilar cisterns are patent. There are no intra- or extra-axial fluid collections. There is no intracranial hemorrhage. The orbits are normal. There is a right anterior ethmoid air cell disease. Mastoid air cells are clear. No soft tissue abnormality is seen. No osseus lesions or fractures are seen. IMPRESSION: 1. No acute intracranial abnormality. Dictated by: Dictated on workstation # [id number]
--- NOTE | 2019-12-17 11:06 | Diagnostic Imaging Report ---
INDICATION: Lethargy. TECHNIQUE: Frontal chest obtained at 10:53 a.m. and is compared to 10/30/2019. FINDINGS: Heart is normal in size. The mediastinal silhouette is unremarkable. There are chronic-appearing increased interstitial markings which are similar to the prior study. There is no focal infiltrate or pneumothorax or pleural fluid. IMPRESSION: Chronic-appearing increased interstitial markings with no acute process in the chest. Dictated by: Dictated on workstation # [id number]
--- NOTE | 2019-12-17 11:30 | NUR ---
LAB HERE TO DRAW 2ND BLOOD CULTURE
--- NOTE | 2019-12-17 11:56 | NUR ---
DR COLON PT'S AT THIS TIME.
--- NOTE | 2019-12-17 12:02 | NUR ---
CALLED THE [facility] TO TALK TO THE NURSE. NURSE IS NOW TALKING TO THE DR ON THE PHONE ABOUT HER CONCERNS WITH HIM NOT EATING OR DRINKING.
--- NOTE | 2019-12-17 12:14 | NUR ---
PT WAS ABLE TO TAKE A FEW SIPS OF WATER THRU A STRAW. PT ALSO ACTED LIKE HE WAS NOT SURE WHAT TO DO WITH THE STRAW. AND NURSE LEYDI BOTH NOTIFIED OF THIS. STATES HALFWAY NEEDS TO CONTACT PCP ABOUT A POSSIBLE DYSPHAGIA DIET. LEYDI NOTIFIED.
--- NOTE | 2019-12-17 12:40 | NUR ---
PT SAID "WHAT" WHEN I SAID HIS NAME BUT DID NOT ANSWER QUESTIONS.
--- NOTE | 2019-12-17 12:45 | NUR ---
PT SHOOK HEAD NO WHEN ASKED IF HE WAS READY TO GO [place] TO THE CORRECTION. FOLLOWS ME WITH HIS EYES I MOVE THROUGHT THE ROOM.
[2019-12-17 13:06] VITALS: BP 143/83
--- NOTE | 2019-12-17 13:06 | NUR ---
PT SHOOK HIS HEAD YES WHEN ASKED IF HE WAS READY TO GO BACK TO THE LONG-TERM.
== END 2019-12-17 13:06 | disposition home or self-care (01) ==
LOC: EDUNIT# 09:59 → ER 10:01
DX: J40 Bronchitis, not specified as acute or chronic (principal); T50.905A Adverse effect of unspecified drugs, medicaments and biological substances, initial encounter; I10 Essential (primary) hypertension; E78.00 Pure hypercholesterolemia, unspecified; Z86.73 Personal history of transient ischemic attack (TIA), and cerebral infarction without residual deficits; Z88.8 Allergy status to other drugs, medicaments and biological substances; Z88.5 Allergy status to narcotic agent; Z79.82 Long term (current) use of aspirin; Z77.22 Contact with and (suspected) exposure to environmental tobacco smoke (acute) (chronic)
CPT/HCPCS: 36415; 51702; 70450; 71045; 80053; 81000; 83605; 85007; 85027; 87040